=== PATIENT | male | born 1965 | race Caucasian/White ===

== ENCOUNTER 2019-09-30 19:55 | Emergency (ER) | payer BC, SELFPAY ==
--- NOTE | ~2019-09-30 | CT_ITS ---
EXAMINATION: CT abdomen pelvis wo con DATE: 09/30/2019 20:48 INDICATION: Lower abdominal pain and hematuria TECHNIQUE: Computed tomography (CT) of the abdomen and pelvis was performed without intravenous contr ast. The dose-length product (DLP) was 683.08 mGy-cm. Automated exposure control and iterative recons truction technique were employed. COMPARISON: 10/24/2017 FINDINGS: The lung bases are clear. The heart size is normal. The liver, spleen, pancreas, gallbladde r, and adrenal glands are normal. The kidneys are unremarkable. No stones are identified in the kidne ys, ureters, or bladder. There is no hydronephrosis or hydroureter. No pathologically enlarged abdomi nal or pelvic lymph nodes are identified. There is no free intraperitoneal gas or evidence of bowel o bstruction. The appendix is normal. There is mild lumbar spondylosis. There is a small fat-containing umbilical hernia. There is mild circumferential thickening of the bladder wall. IMPRESSION: 1. Mild circumferential thickening of the bladder wall which could reflect cystitis or chronic outlet obstruction. Reviewed, dictated and finalized at location A. IMPRESSION: 1. Mild circumferential thickening of the bladder wall which could reflect cyst itis or chronic outlet obstruction.
[2019-09-30 20:02] VITALS: BP 153/94; PULSE 85; RESP 18; TEMP 36.7; O2SAT 100
--- NOTE | 2019-09-30 20:07 | ED.MALEGU ---
HPI - Male Genitourinary General Chief complaint: Urogenital-Male Stated complaint: kidney/bladder infx Time Seen by Provider: 09/30/19 19:59 History of Present Illness HPI Narrative: Intermittent lower abdominal pain and increased urinary frequency for the past week. Getting worse. Urine appears cloudy. Had similar symptoms in the past due to UTI. Denies h/o BPH/retention. Related Data Home Medications Medication Instructions Recorded Confirmed doxycycline hyclate 150 mg tablet 150 mg PO DAILY tablet 07/09/19 07/09/19 Allergies Allergy/AdvReac Type Severity Reaction Status Date / Time atorvastatin Allergy Unknown Joint Pain Verified 09/30/19 19:57 Review of Systems Review of Systems: All systems reviewed & are unremarkable except as noted in HPI and below Constitutional: Constitutional: Denies fever(s) Cardiovascular: Cardiovascular: Denies chest pain Respiratory: Respiratory: Denies dyspnea Gastrointestinal: Gastrointestinal: Reports abdominal pain, Denies constipation, Denies diarrhea, Denies nausea and Denies vomiting Genitourinary: Genitourinary: Denies dysuria and Reports urinary frequency [facility] Past Medical History Medical History Cellulitis of head or scalp Chronic low back pain with right-sided sciatica Hx of malignant neoplasm of colon Hyperlipidemia LBBB (left bundle branch block) SYL (obstructive sleep apnea) Pulmonary nodules Surgical History Surgical History No pertinent past surgical history Family History Family History Grandparent Diabetes mellitus Other Diabetes mellitus Social History Social History Smoking status: Former smoker Second hand tobacco smoke exposure: No Smoking end date: 03/09/04 Alcohol intake: former Substance use: never Substance use type: does not use Gender identity (if verbalized by the patient): Male Exam Const: General: healthy appearing, no acute distress and alert Orientation/consciousness: patient oriented x3 HENMT: Head: normal to inspection Neck: Neck: normal visual inspection and no lymphadenopathy Chest: Chest palpation & inspection: no tenderness Resp: Effort & Inspection: normal respiratory effort Auscultation: clear to auscultation bilaterally, no rales, no rhonchi and no wheezes Cardio: Jugular venous distension: no JVD Rate: regular rate Rhythm: regular rhythm Heart sounds: no murmurs GI: Inspection: non-distended GI Palp: Yes Soft to palpation and No Tenderness to palpation present (GI) : General: Yes Bladder palpation abnormal tender Skin: General skin exam: normal color Neuro: General: patient oriented x3 and moves all extremities Speech: normal speech Extrem: General: no edema Psych: Appearance: well kempt Affect: normal affect Course Vital Signs Vital signs: Vital Signs Temperature 36.7 C 09/30/19 20:02 Pulse Rate 85 09/30/19 20:02 Respiratory Rate 18 09/30/19 20:02 Blood Pressure 153/94 H 09/30/19 20:02 Pulse Oximetry 100 09/30/19 20:02 Temperature 36.7 C 09/30/19 21:21 Pulse Rate 82 09/30/19 21:21 Respiratory Rate 16 09/30/19 21:21 Blood Pressure 155/94 H 09/30/19 21:21 Pulse Oximetry 98 09/30/19 21:21 MDM - Male Genitourinary MDM Narrative Medical decision making narrative: UA shows a few red cells with no obvious sign of infection. CT shows thickened bladder wall. I will send urine for culture. No antibiotics at this time. Start flomax and have him follow-up with urology. Medical Records Attestation: I reviewed the patient's medical records. Lab Data Attestation: I reviewed the patient's lab results. Result diagrams: 09/30/19 20:31 09/30/19 20:31 Labs: Lab Results 09/30/19 09/30/19
[2019-09-30 20:15] LABS: Add Urine Microscopic? YES; Appearance Urine Clear (Clear); Bilirubin Urine Negative (Negative); Blood Urine 1+ (Negative); Color Urine Yellow (Yellow); Glucose Urine UA Negative (Negative); Ketones Urine Negative (Negative); Leukocyte Esterase Ur Negative LEU/UL (Negative); Mucus Urine Rare /lpf; Nitrate Urine Negative (Negative); Protein Urine Negative (Negative); Specific Grav Ur 1.015 (1.001-1.035); Urobilinogen Urine Negative mg/dL (<2.0); WBC Urine 0-3 /hpf
[2019-09-30 20:45] LABS: Basophils Percent Auto 0.5 % (0.2-1.2); Eosinophils Absolute Auto 0.1 K/mm3 (0-0.3); Eosinophils Percent Auto 1.1 % (0-4.4); Hematocrit 47.3 % (42.0-52.0); Hemoglobin 15.9 g/dL (14.0-18.0); Immature Granulocyte Absolute 0.01 K/mm3 (0.00-0.031); Immature Granulocyte Percent A 0.2 % (0-0.5); Lymphocytes Absolute Auto 1.67 K/mm3 (0.9-3.2); Lymphocytes Percent Auto 30.2 % (18.3-44.2); Mean Corpuscular HGB Conc 33.6 g/dl (32-36); Mean Corpuscular Hemoglobin 30.1 pg (26-34); Mean Corpuscular Volume 89.4 fl (80-100); Mean Platelet Volume 9.7 fl (7.4-10.4); Monocytes Absolute Auto 0.7 K/mm3 (0.1-0.6); Monocytes Percent Auto 12.8 % (2.6-8.5); Neutrophils Absolute Auto 3.1 K/mm3 (1.3-6.7); Neutrophils Percent Auto 55.2 % (45.5-73.1); Platelet Count Result 226 k/mm3 (150-375); Red Blood Count 5.29 M/mm3 (4.6-6.20); White Blood Count 5.5 K/mm3 (4.5-10.0)
[2019-09-30 21:01] LABS: Alanine Aminotransferase 26 U/L (4-50); Albumin Level 4.5 g/dL (3.5-5.1); Alkaline Phosphatase 60 U/L (38-126); Anion Gap 11.1 mmol/L (7-16); Aspartate Amino Transferase 27 U/L (17-59); Bilirubin,Total 0.6 mg/dL (0.2-1.3); Blood Urea Nitrogen 13 mg/dL (9-20); Calcium 9.4 mg/dL (8.4-10.2); Carbon Dioxide 30 mmol/L (22-30); Chloride 102 mmol/L (98-107); Estimated Glomerular Filt Rate > 60; Glucose 97 mg/dL (75-110); Potassium 4.1 mmol/L (3.4-5.0); Sodium 139 mmol/L (137-145)
[2019-09-30] MEDS: TAMSULOSIN HCL 0.4 MG CAPSULE PO (21:12)
[2019-09-30 21:21] VITALS: BP 155/94; PULSE 82; RESP 16; TEMP 36.7; O2SAT 98
== END 2019-09-30 21:22 | disposition home or self-care (01) ==
PROVIDERS: Emergency Provider Emergency Medicine; PCP Family Medicine
DX: N32.0 Bladder-neck obstruction (principal); Z87.891 Personal history of nicotine dependence; Z85.038 Personal history of other malignant neoplasm of large intestine; E78.5 Hyperlipidemia, unspecified; G47.30 Sleep apnea, unspecified
CPT/HCPCS: 36415; 74176; 80053; 81001; 85025; 87086; 99284; A9270

== ENCOUNTER 2020-01-26 02:55 | Emergency (ER) | payer BC, SELFPAY ==
[2020-01-26] VITALS (10 sets, daily range): BP systolic 118–157; BP diastolic 82–92; PULSE 63–97; RESP 5–22; TEMP 36.2; O2SAT 98–100
--- NOTE | ~2020-01-26 | XR_ITS ---
EXAMINATION: XR chest 2V DATE: 01/26/2020 04:00 INDICATION: Left neck pain. Nausea. TECHNIQUE: Frontal and lateral views of the chest were obtained. COMPARISON: Chest 2 views 07/21/2016, CT abdomen and pelvis 09/30/2019 FINDINGS: There is mild scarring at right lung apex. There are mild airspace opacities at the lung ba ses. No pleural effusion or pneumothorax. The heart size is normal. IMPRESSION: 1. Mild airspace opacities at the lung bases, consistent with atelectasis versus pneumonia. Reviewed, dictated and finalized at location A. [employer] IMPRESSION: 1. Mild airspace opacities at the lung bases, consistent with atelectasis versu s pneumonia.
--- NOTE | 2020-01-26 03:01 | ED.NECK ---
HPI - Neck Pain/Injury General Chief Complaint: Neck Pain/Injury Stated Complaint: neck pain Time Seen by Provider: 01/26/20 03:01 Source: patient Mode of arrival: ambulatory Limitations: no limitations History of Present Illness HPI Narrative: Patient is a 54-year-old gentleman with a history of hypertension who presents for evaluation of left-sided neck pain. Patient states he awakened from sleeping with a sharp neck pain on the left side of his neck. Patient has a longstanding history of chronic neck and back pain due to injuries in the past, states that this pain is worse with movement. He had some associated nausea after taking an aspirin, was concerned maybe he was having a heart attack, thus he came to the emergency department for assessment. Patient denies any current chest pain or shortness of breath. No current nausea or diaphoresis. He denies any palpitations. Patient denies history of previous MT. He denies any ripping or tearing sensation to the back or flanks. No associated jaw pain or arm pain. Patient states he did experience some tingling in both of his hands, but states he is feeling quite anxious and does attribute some of his symptoms to anxiety as well. Patient denies any current numbness or weakness. No difficulty with speech, no facial droop or drooling. Patient was able to drive to this facility and then ambulated in the emergency department without difficulty. No dizziness or lightheadedness. No vision changes. He denies recent illnesses, fever, cough or cold symptoms. Patient states he is COVID swabbed weekly. Related Data Home Medications Medication Instructions Recorded Confirmed doxycycline hyclate 150 mg tablet 150 mg PO DAILY tablet 07/09/19 07/09/19 Allergies Allergy/AdvReac Type Severity Reaction Status Date / Time atorvastatin Allergy Unknown Joint Pain Verified 09/30/19 19:57 Review of Systems Review of Systems: Narrative: CONSTITUTIONAL: Denies fever, chills, or sweats. EYES: Denies visual changes, redness, or discharge. ENT: Denies rhinorrhea, congestion, sore throat, or otalgia. CARDIOVASCULAR: Denies chest pain, palpitations, or edema. RESPIRATORY: Denies cough or dyspnea. GASTROINTESTINAL: Denies current abdominal pain, nausea, vomiting, or diarrhea. GENITOURINARY: Denies dysuria or hematuria. SKIN: Denies rash or itching. MUSCULOSKELETAL: Denies back pain, reports left-sided neck pain with movement NEUROLOGIC: Denies headache, numbness, or weakness. PSYCHIATRIC: Patient reports anxiety PMFSH Past Medical History Medical History (Updated 01/26/20 @ 06:55 by Priya Santiago MD) Cellulitis of head or scalp Chronic low back pain with right-sided sciatica Hx of malignant neoplasm of colon Hyperlipidemia LBBB (left bundle branch block) SYL (obstructive sleep apnea) Pulmonary nodules Surgical History Surgical History No pertinent past surgical history Family History Family History Grandparent Diabetes mellitus Other Diabetes mellitus Social History Social History Smoking status: Former smoker Second hand tobacco smoke exposure: No Smoking end date: 03/09/04 Alcohol intake: former Substance use: never Substance use type: does not use Gender identity (if verbalized by the patient): Male Exam Narrative: Exam Narrative: GENERAL: Awake, alert, conversant HEAD: Normocephalic, atraumatic. EYES: PERRLA and EOMI. ENT: Nares clear, no rhinorrhea or epistaxis. Mucous membranes moist. NECK: Supple. Tenderness to palpation of the left trapezius which reproduces pain. No midline cervical tenderness. CHEST: No respiratory distress, breathing even and non labored HEART: Regular rate, sinus rhythm, no murmur ABDOMEN:Non distended, non tender EXTREMITIES: Normal range of motion. No edema. SKIN: Warm,
--- NOTE | 2020-01-26 03:33 | ECG_ITS ---
Measurements Intervals [place] Rate: 60 P: 46 OR: 190 QRS: 4 QRSD: 101 T: 13 QT: 379 QTc: 382 Interpretive Statements SINUS RHYTHM BASELINE WANDER- V1 NORMAL ECG Electronically Signed On 01-26-2020 7:33:47 RECOOPERER by Reji Wooten D.O.
[2020-01-26] MEDS: ACETAMINOPHEN 500 MG TABLET 1000 MG PO (03:53)
[2020-01-26] MEDS: SODIUM CHLORIDE 0.9% IV 500 ML 999 ML IV CONT (03:54)
--- NOTE | 2020-01-26 03:54 | PC.NURSE ---
Pt. to XR
[2020-01-26] MEDS: LORazepam (*CRX) 0.5 MG TABLET PO (03:59)
[2020-01-26 04:11] LABS: Basophils Percent Auto 0.6 % (0.2-1.2); Eosinophils Absolute Auto 0.1 K/mm3 (0-0.3); Hematocrit 44.3 % (42.0-52.0); Hemoglobin 14.9 g/dL (14.0-18.0); Immature Granulocyte Absolute 0.02 K/mm3 (0.00-0.031); Immature Granulocyte Percent A 0.3 % (0-0.5); Lymphocytes Absolute Auto 1.86 K/mm3 (0.9-3.2); Mean Corpuscular HGB Conc 33.6 g/dl (32-36); Mean Corpuscular Hemoglobin 30.3 pg (26-34); Mean Platelet Volume 9.7 fl (7.4-10.4); Monocytes Absolute Auto 0.7 K/mm3 (0.1-0.6); Monocytes Percent Auto 10.4 % (2.6-8.5); Neutrophils Absolute Auto 3.9 K/mm3 (1.3-6.7); Neutrophils Percent Auto 58.7 % (45.5-73.1); Platelet Count Result 226 k/mm3 (150-375); Red Blood Count 4.92 M/mm3 (4.6-6.20); Red Cell Distribution Width 12.1 % (11.5-14.5); White Blood Count 6.7 K/mm3 (4.5-10.0)
[2020-01-26 04:28] LABS: Anion Gap 8 mmol/L (8-16); Blood Urea Nitrogen 19 mg/dL (9-20); Carbon Dioxide 29 mmol/L (22-30); Chloride 103 mmol/L (98-107); Estimated CRCL calculation 106 ml/min; Estimated Glomerular Filt Rate > 60; Glucose 93 mg/dL (75-110); Potassium 3.8 mmol/L (3.4-5.0); Sodium 140 mmol/L (137-145)
[2020-01-26 04:35] LABS: Partial Thromboplastin Time 28.6 SECONDS (22.3-36.8)
[2020-01-26 04:40] LABS: Troponin I < 0.012 ng/mL (0.000-0.034)
[2020-01-26 04:50] LABS: INR 0.9; Prothrombin Time 12.4 Seconds (11.1-14.7)
[2020-01-26 06:53] LABS: Troponin I < 0.012 ng/mL (0.000-0.034)
== END 2020-01-26 07:12 | disposition home or self-care (01) ==
PROVIDERS: Emergency Provider Emergency Medicine; PCP Internal Medicine Cardiovascular Disease
DX: M54.2 Cervicalgia (principal); M25.512 Pain in left shoulder; E78.5 Hyperlipidemia, unspecified; G47.33 Obstructive sleep apnea (adult) (pediatric); Z87.891 Personal history of nicotine dependence
CPT/HCPCS: 36415; 71046; 80048; 84484; 85025; 85610; 85730; 93005; 96360; 99284; A9270; J7040

== ENCOUNTER 2020-05-16 12:29 | Emergency (ER) | payer BC, SELFPAY ==
--- NOTE | ~2020-05-16 | XR_ITS ---
EXAMINATION: XR_CERV2-3V_CR EXAM DATE: 05/16/2020 13:24 INDICATION: Initial encounter following injury, with pain of the cervical spine. TECHNIQUE: Cervical spine frontal, lateral, lateral swimmers, and open-mouth odontoid projections. C omparison is made to prior examination from 02/08/2016. FINDINGS: There is no evidence of acute cervical fracture. The odontoid process is intact. Pre-dens space is normal. Prevertebral soft tissue is normal. There are no soft tissue abnormalities identi fied. Moderate disc disease L3-4 and L4-5, mild to moderate arthropathy at these levels. The vertebr al body and disc heights are otherwise well maintained. The vertebral bodies are aligned. IMPRESSION: 1. Moderate disc disease C3-5. 2. No acute findings. Reviewed, dictated and finalized at location B. RUMENTATION TECH
--- NOTE | ~2020-05-16 | XR_ITS ---
EXAMINATION: XR lumbar spine 2-3V DATE: 05/16/2020 13:24 INDICATION: Low back pain. TECHNIQUE: 3 views of lumbar spine were obtained. COMPARISON: CT abdomen and pelvis 09/30/2019 FINDINGS: There is 5 degrees dextrocurvature of thoracolumbar spine. Vertebral body heights are danitza l. Intervertebral disc heights are normal. There are endplate osteophytes at most levels. The facet j oints are unremarkable. IMPRESSION: 1. Mild lumbar spondylosis. Reviewed, dictated and finalized at location A. [employer]ET[employer]ATOR IMPRESSION: 1. Mild lumbar spondylosis.
[2020-05-16 12:42] VITALS: BP 111/87; PULSE 100; RESP 20; TEMP 36.8; O2SAT 100
--- NOTE | 2020-05-16 12:52 | ED.BACK ---
HPI - Back Pain/Injury General Chief Complaint: Back Pain/Injury Stated Complaint: back and neck pain, arm face numbness Time Seen by Provider: 05/16/20 12:51 Source: patient Mode of arrival: ambulatory Limitations: no limitations History of Present Illness HPI Narrative: Patient is a 55-year-old male complaining of low back pain, neck pain, 8 out of 10, aching, radiating to the lower extremity started after hitting a pothole on his way to his pcp. Pt states that he saw his chiropractor this past week due to the low back pain in which he was adjusted. Patient states that he has a history of chronic low back pain, has been seeing a chiropractor and his primary care physician for it. Patient denies any incontinence, weakness, numbness, fever or chills. Related Data Home Medications Medication Instructions Recorded Confirmed doxycycline hyclate 150 mg tablet 150 mg PO DAILY tablet 07/09/19 05/16/20 Allergies Allergy/AdvReac Type Severity Reaction Status Date / Time atorvastatin Allergy Unknown Joint Pain Verified 05/16/20 11:23 Review of Systems Review of Systems: All systems reviewed & are unremarkable except as noted in HPI and below Constitutional: Constitutional: Denies body ache(s), Denies chills, Denies excessive sweating, Denies fatigue, Denies fever(s), Denies headache(s), Denies lethargy, Denies malaise, Denies weakness and Denies weight loss Eyes: Eyes: Denies blurry vision, Denies change in vision and Denies loss of vision ENT: Denies dizziness, Denies ear discharge, Denies headache(s), Denies lip swelling, Denies epistaxis, Denies nasal congestion, Denies neck pain, Denies throat swelling and Denies tongue swelling Cardiovascular: Cardiovascular: Denies chest pain, Denies chest pain at rest, Denies chest pain with activity, Denies diaphoresis, Denies rapid heart rate, Denies edema, Denies irregular heart rhythm, Denies lightheadedness, Denies palpitations, Denies dyspnea and Denies dyspnea on exertion Respiratory: Respiratory: Denies chest congestion, Denies cough, Denies hemoptysis, Denies dyspnea and Denies dyspnea on exertion Gastrointestinal: Gastrointestinal: Denies abdominal pain, Denies melena, Denies hematochezia, Denies diarrhea, Denies nausea, Denies vomiting and Denies hematemesis Musculoskeletal: Musculoskeletal: Denies abnormal gait, Denies deformity, Denies joint swelling, Denies neck pain and Denies numbness Neurologic: Denies Abnormal speech present, Denies abnormal gait, Denies confusion, Denies dizziness, Denies headache(s), Denies focal weakness, Denies loss of vision, Denies numbness, Denies Other visual disturbances, Denies Sensory deficit (Neuro) and Denies weakness Psychiatric: Psychiatric: Denies confusion, Denies depression, Denies auditory hallucinations, Denies homicidal ideation and Denies suicidal ideation Endocrine: Endocrine: Denies cold intolerance, Denies excessive sweating, Denies fatigue, Denies heat intolerance and Denies palpitations Hematologic/Lymphatic: Hematologic/Lymphatic: Denies easy bleeding and Denies easy bruising Allergic/Immunologic: Allergic/Immunologic: Denies lip swelling, Denies throat swelling and Denies tongue swelling PMFSH Past Medical History Medical History (Updated 05/16/20 @ 14:01 by Sammy Barnes MD) Cellulitis of head or scalp Chronic low back pain with right-sided sciatica Hx of malignant neoplasm of colon Hyperlipidemia LBBB (left bundle branch block) SYL (obstructive sleep apnea) Pulmonary nodules Surgical History Surgical History No pertinent past surgical history Family History Family History Grandparent Diabetes mellitus Other Diabetes mellitus Social History Social History Smoking status: Former smoker Second hand tobacco smoke exposure: No Smoking end date
[2020-05-16] MEDS: KETOROLAC 30 MG/ML VIAL (*BKC) IM (14:16)
[2020-05-16] MEDS: diazePAM INJ (*CRX) 10 MG/2 ML SYRINGE 5 MG IM (14:16)
[2020-05-16 14:21] VITALS: BP 120/84; PULSE 87; RESP 22; O2SAT 100
== END 2020-05-16 14:51 | disposition home or self-care (01) ==
LOC: ANHED 13:23
PROVIDERS: Emergency Provider Emergency Medicine; PCP Family Medicine
DX: S16.1XXA Strain of muscle, fascia and tendon at neck level, initial encounter (principal); M54.41 Lumbago with sciatica, right side; Z85.038 Personal history of other malignant neoplasm of large intestine; E78.5 Hyperlipidemia, unspecified; G47.33 Obstructive sleep apnea (adult) (pediatric); Z87.891 Personal history of nicotine dependence; X58.XXXA Exposure to other specified factors, initial encounter
CPT/HCPCS: 72040; 72100; 96372; 99284; J1100; J1885; J3360

== ENCOUNTER 2020-07-08 07:30 | Outpatient (CLI) | payer BC, SELFPAY ==
--- NOTE | ~2020-07-08 | MR_ITS ---
EXAMINATION: MR cervical spine wo con DATE: 07/08/2020 09:23 INDICATION: Neck pain. TECHNIQUE: Magnetic resonance imaging (MRI) of the cervical spine was performed without intravenous c ontrast. Sequences included sagittal T2-weighted FSE, sagittal STIR FSE, sagittal T1-weighted FSE, ax ial MERGE, and axial T2-weighted FSE. COMPARISON: Cervical spine radiographs 05/16/2020 FINDINGS: There is 7 degrees dextrocurvature of cervical spine. Vertebral body heights are normal. Th ere is moderately decreased disc height at C3-C4 and C4-C5 and mildly decreased disc height at C6-C7. The spinal cord signal intensity is normal. The following disc levels are specifically discussed: C2-C3: The disc does not extend beyond the endplate margin. There is no uncovertebral joint osteoarth ritis. There is mild bilateral facet joint osteoarthritis. There is no neural foraminal stenosis. The re is no central canal stenosis. C3-C4: The disc is bulging. There is moderate right and severe left uncovertebral joint osteoarthriti s. There is mild bilateral facet joint osteoarthritis. There is mild bilateral neural foraminal steno sis. There is mild central canal stenosis. C4-C5: The disc is bulging. There is moderate bilateral uncovertebral joint osteoarthritis. There is mild left facet joint osteoarthritis. There is mild bilateral neural foraminal stenosis. There is no central canal stenosis. C5-C6: The disc does not extend beyond the endplate margin. There is mild left uncovertebral joint os teoarthritis. There is no facet joint osteoarthritis. There is no neural foraminal stenosis. There is no central canal stenosis. C6-C7: The disc is bulging. There is mild right and severe left uncovertebral joint osteoarthritis. T here is no facet joint osteoarthritis. There is mild right and moderate left neural foraminal stenosi s. There is mild central canal stenosis. C7-T1: The disc does not extend beyond the endplate margin. There is no uncovertebral joint osteoarth ritis. There is mild bilateral facet joint osteoarthritis. There is no neural foraminal stenosis. The re is no central canal stenosis. IMPRESSION: 1. Moderate cervical spondylosis. Reviewed, dictated and finalized at location A.
--- NOTE | ~2020-07-08 | MR_ITS ---
EXAMINATION: MR lumbar spine wo con DATE: 07/08/2020 09:23 INDICATION: Lumbago with right-sided sciatica. TECHNIQUE: Magnetic resonance imaging (MRI) of the lumbar spine was performed without intravenous con trast. Sequences included sagittal T2-weighted FSE, sagittal T2-weighted FS FSE, sagittal T1-weighted FSE, and axial T2-weighted FSE. COMPARISON: Lumbar spine radiographs 05/16/2020 FINDINGS: Bone alignment is normal. Vertebral body heights and intervertebral disc heights are normal . The distal spinal cord signal intensity is normal. The conus medullaris is at L1. The following dis c levels are specifically discussed: L1-L2: There is a left central protrusion with annular fissure. There is no facet joint osteoarthriti s. There is no neural foraminal stenosis. There is mild central canal stenosis. L2-L3: The disc does not extend beyond the endplate margin. There is no facet joint osteoarthritis. T here is no neural foraminal stenosis. There is no central canal stenosis. L3-L4: The disc is mildly bulging. There is mild bilateral facet joint osteoarthritis. There is mild bilateral neural foraminal stenosis. There is no central canal stenosis. L4-L5: The disc is bulging and has an annular fissure. There is mild bilateral facet joint osteoarthr itis. There is mild bilateral neural foraminal stenosis. There is mild central canal stenosis. L5-S1: The disc is bulging and has an annular fissure. There is mild right facet joint osteoarthritis . There is mild bilateral neural foraminal stenosis. There is mild central canal stenosis. IMPRESSION: 1. Mild lumbar spondylosis. Reviewed, dictated and finalized at location A. IMPRESSION: 1. Mild lumbar spondylosis.
== END 2020-07-08 07:31 | disposition home or self-care (01) ==
PROVIDERS: PCP Family Medicine; Visit Provider Family Medicine
DX: M54.41 Lumbago with sciatica, right side (principal); G89.29 Other chronic pain; M43.06 Spondylolysis, lumbar region; M50.90 Cervical disc disorder, unspecified, unspecified cervical region; M47.896 Other spondylosis, lumbar region; M47.892 Other spondylosis, cervical region
CPT/HCPCS: 72141; 72148

== ENCOUNTER 2020-07-27 01:15 | Emergency (ER) | payer BC, SELFPAY ==
[2020-07-27 01:18] VITALS: BP 154/92; PULSE 110; RESP 18; TEMP 36.9; O2SAT 100
--- NOTE | 2020-07-27 01:36 | ED.GENADULT ---
HPI - General Adult General Chief complaint: Unspecified Stated complaint: Chills/shakes-lower back pain Time Seen by Provider: 07/27/20 01:27 Source: patient Mode of arrival: ambulatory Limitations: no limitations History of Present Illness HPI narrative: Patient is a 55-year-old male complaining of low back pain accompanied by chills and nausea that started tonight. Patient has a history of chronic low back pain, had an MRI of the lumbar spine done last month at this facility. Patient states that he has had similar episodes in the past when he was diagnosed with a bladder infection . Patient denies any chest pain, shortness of breath, abdominal pain, vomiting,, diarrhea or urinary symptoms. Patient denies any injury to his lower back. Patient has no other complaints. Related Data Home Medications Medication Instructions Recorded Confirmed doxycycline hyclate 150 mg tablet 150 mg PO DAILY tablet 07/09/19 06/09/20 docosahexaenoic acid 200 mg capsule mg PO 06/09/20 06/09/20 Allergies Allergy/AdvReac Type Severity Reaction Status Date / Time atorvastatin Allergy Unknown Joint Pain Verified 07/27/20 01:17 Review of Systems Review of Systems: All systems reviewed & are unremarkable except as noted in HPI and below Constitutional: Constitutional: Denies body ache(s), Denies excessive sweating, Denies fatigue, Denies fever(s), Denies headache(s), Denies lethargy, Denies malaise, Denies weakness and Denies weight loss Eyes: Eyes: Denies blurry vision, Denies change in vision and Denies loss of vision ENT: Denies dizziness, Denies ear discharge, Denies headache(s), Denies lip swelling, Denies epistaxis, Denies nasal congestion, Denies neck pain, Denies throat swelling and Denies tongue swelling Cardiovascular: Cardiovascular: Denies chest pain, Denies chest pain at rest, Denies chest pain with activity, Denies diaphoresis, Denies rapid heart rate, Denies edema, Denies irregular heart rhythm, Denies lightheadedness, Denies palpitations, Denies dyspnea and Denies dyspnea on exertion Respiratory: Respiratory: Denies chest congestion, Denies cough, Denies hemoptysis, Denies dyspnea and Denies dyspnea on exertion Gastrointestinal: Gastrointestinal: Denies abdominal pain, Denies melena, Denies hematochezia, Denies diarrhea, Denies vomiting and Denies hematemesis Musculoskeletal: Musculoskeletal: Denies abnormal gait, Denies deformity, Denies joint swelling, Denies limited range of motion, Denies neck pain and Denies numbness Neurologic: Denies Abnormal speech present, Denies abnormal gait, Denies confusion, Denies dizziness, Denies headache(s), Denies focal weakness, Denies loss of vision, Denies numbness, Denies Other visual disturbances, Denies Sensory deficit (Neuro) and Denies weakness Psychiatric: Psychiatric: Denies confusion, Denies depression, Denies auditory hallucinations, Denies homicidal ideation and Denies suicidal ideation Endocrine: Endocrine: Denies cold intolerance, Denies excessive sweating, Denies fatigue, Denies heat intolerance and Denies palpitations Hematologic/Lymphatic: Hematologic/Lymphatic: Denies easy bleeding and Denies easy bruising Allergic/Immunologic: Allergic/Immunologic: Denies lip swelling, Denies throat swelling and Denies tongue swelling PMFSH Past Medical History Medical History Cellulitis of head or scalp Chronic low back pain with right-sided sciatica Chronic neck pain Hx of malignant neoplasm of colon Hyperlipidemia LBBB (left bundle branch block) SYL (obstructive sleep apnea) Pulmonary nodules Surgical History Surgical History No pertinent past surgical history Family History Family History Grandparent Diabetes mellitus Other Diabetes mellitus Social History Social History (Reviewed 07/27/20 @ 01:42 by Sammy Brown
[2020-07-27] MEDS: SODIUM CHLORIDE 0.9% IV 1,000 ML 999 ML IV CONT (01:47)
[2020-07-27 01:55] LABS: Basophils Percent Auto 0.5 % (0.2-1.2); Eosinophils Percent Auto 0.6 % (0-4.4); Hemoglobin 14.8 g/dL (14.0-18.0); Immature Granulocyte Absolute 0.02 K/mm3 (0.00-0.031); Immature Granulocyte Percent A 0.3 % (0-0.5); Lymphocytes Absolute Auto 0.68 K/mm3 (0.9-3.2); Lymphocytes Percent Auto 10.2 % (18.3-44.2); Mean Corpuscular HGB Conc 34.4 g/dl (32-36); Mean Corpuscular Volume 87.2 fl (80-100); Mean Platelet Volume 9.4 fl (7.4-10.4); Monocytes Absolute Auto 0.5 K/mm3 (0.1-0.6); Monocytes Percent Auto 8.1 % (2.6-8.5); Neutrophils Absolute Auto 5.3 K/mm3 (1.3-6.7); Neutrophils Percent Auto 80.3 % (45.5-73.1); Platelet Count Result 183 k/mm3 (150-375); Red Blood Count 4.93 M/mm3 (4.6-6.20); Red Cell Distribution Width 11.6 % (11.5-14.5); White Blood Count 6.6 K/mm3 (4.5-10.0)
[2020-07-27 02:14] LABS: Add Urine Microscopic? NO; Appearance Urine Clear (Clear); Bilirubin Urine Negative (Negative); Blood Urine Negative (Negative); Color Urine Straw (Yellow); Glucose Urine UA Negative (Negative); Ketones Urine Negative (Negative); Leukocyte Esterase Ur Negative LEU/UL (Negative); Mucus Urine Rare /lpf; Nitrate Urine Negative (Negative); Protein Urine Negative (Negative); RBC Urine 0-2 /hpf (0-2); Urobilinogen Urine Negative mg/dL (<2.0); WBC Urine 0-3 /hpf
[2020-07-27 02:21] LABS: Anion Gap 4 mmol/L (8-16); Blood Urea Nitrogen 16 mg/dL (9-20); Calcium 9.6 mg/dL (8.4-10.2); Carbon Dioxide 30 mmol/L (22-30); Chloride 103 mmol/L (98-107); Estimated CRCL calculation 92 ml/min; Estimated Glomerular Filt Rate > 60; Glucose 86 mg/dL (75-110); Potassium 4.2 mmol/L (3.4-5.0); Sodium 137 mmol/L (137-145)
[2020-07-27 03:12] VITALS: BP 148/103; PULSE 91; RESP 16; TEMP 36.4; O2SAT 100
== END 2020-07-27 03:13 | disposition home or self-care (01) ==
PROVIDERS: Emergency Provider Emergency Medicine; PCP Family Medicine
DX: M54.5 Low back pain (principal); R68.83 Chills (without fever); Z87.891 Personal history of nicotine dependence; E78.5 Hyperlipidemia, unspecified; G47.33 Obstructive sleep apnea (adult) (pediatric)
CPT/HCPCS: 36415; 80048; 81003; 85025; 96360; 99283; J7030

== ENCOUNTER 2021-07-17 11:03 | Emergency (ER) | payer BC, SELFPAY ==
[2021-07-17] VITALS (7 sets, daily range): BP systolic 115–137; BP diastolic 75–97; PULSE 64–93; RESP 17–21; TEMP 36.8; O2SAT 98–100
--- NOTE | ~2021-07-17 | CT_ITS ---
EXAMINATION: CT brain wo con DATE: 07/17/2021 13:52 INDICATION: Headache. Dizziness. TECHNIQUE: Computed tomography (CT) of the head was performed without intravenous contrast. Sagittal and coronal reconstructions were performed. The mA was adjusted according to patient size. Iterative reconstruction technique was employed. The dose-length product was 605.33 mGy-cm. COMPARISON: head CT dated 07/21/16 FINDINGS: No acute intracranial hemorrhage, acute infarction or abnormal extra axial fluid collection. There is mild scattered white matter hypoattenuation consistent with chronic small vessel ischemic disease. Ventricles are normal and symmetric. No mass/mass effect. Mild mucosal thickening the left ethmoid si nus. The orbits and mastoid air cells are normal. IMPRESSION: 1. No acute intracranial process. 2. Mild scattered white matter hypoattenuation consistent with chronic small vessel ischemic disease. Reviewed, dictated and finalized at location A. IMPRESSION: 1. No acute intracranial process. 2. Mild scattered white matter hypoattenuation consistent with chronic small ve ssel ischemic disease.
--- NOTE | ~2021-07-17 | XR_ITS ---
XR chest 2V DATE: 07/17/2021 12:05 INDICATION: Shortness of breath and dizziness after bending. Recent diagnosis of left bundle-branch b lock TECHNIQUE: 2 views COMPARISON: 01/26/2020 PA and lateral chest FINDINGS: Normal heart size. No hilar or mediastinal enlargement. No pulmonary infiltrate or consolid ation, pleural effusion or pulmonary vascular congestion or pneumothorax. IMPRESSION: No active cardiopulmonary disease Reviewed, dictated and finalized at location B.
--- NOTE | 2021-07-17 11:08 | ECG_ITS ---
Measurements Intervals [place] Rate: 98 P: 62 MN: 181 QRS: 7 QRSD: 128 T: 96 QT: 349 QTc: 446 Interpretive Statements SINUS RHYTHM LEFT BUNDLE BRANCH BLOCK ABNORMAL ECG Electronically Signed On 07-17-2021 11:24:03 CDT by Reji Wooten D.O.
[2021-07-17 11:27] LABS: Basophils Percent Auto 0.4 % (0.2-1.2); Eosinophils Percent Auto 0.5 % (0-4.4); Hematocrit 48.6 % (42.0-52.0); Hemoglobin 16.3 g/dL (14.0-18.0); Immature Granulocyte Absolute 0.02 K/mm3 (0.00-0.031); Immature Granulocyte Percent A 0.2 % (0-0.5); Lymphocytes Absolute Auto 1.68 K/mm3 (0.9-3.2); Lymphocytes Percent Auto 20.4 % (18.3-44.2); Mean Corpuscular HGB Conc 33.5 g/dl (32-36); Mean Corpuscular Hemoglobin 30.4 pg (26-34); Mean Corpuscular Volume 90.7 fl (80-100); Mean Platelet Volume 9.3 fl (7.4-10.4); Monocytes Absolute Auto 0.5 K/mm3 (0.1-0.6); Monocytes Percent Auto 6.4 % (2.6-8.5); Neutrophils Absolute Auto 5.9 K/mm3 (1.3-6.7); Neutrophils Percent Auto 72.1 % (45.5-73.1); Platelet Count Result 239 k/mm3 (150-375); Red Blood Count 5.36 M/mm3 (4.6-6.20); White Blood Count 8.2 K/mm3 (4.5-10.0)
[2021-07-17 11:40] LABS: Alanine Aminotransferase 40 U/L (6-50); Albumin Level 4.4 g/dL (3.5-5.1); Alkaline Phosphatase 56 U/L (38-126); Anion Gap 8 mmol/L (8-16); Aspartate Amino Transferase 31 U/L (17-59); Bilirubin,Total 0.7 mg/dL (0.2-1.3); Blood Urea Nitrogen 13 mg/dL (9-20); Calcium 9.4 mg/dL (8.4-10.2); Carbon Dioxide 25 mmol/L (22-30); Chloride 104 mmol/L (98-107); Estimated CRCL calculation 91 ml/min; Estimated Glomerular Filt Rate > 60; Glucose 117 mg/dL (65-110); Potassium 3.9 mmol/L (3.4-5.0); Sodium 137 mmol/L (137-145)
--- NOTE | 2021-07-17 13:04 | ED.SOB ---
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 Associated with shortness of breath lasted for few seconds. He denies any fever, chills, nausea, vomiting, diarrhea, constipation, trouble urinating. History of chronic intermittent frontal head, chronic intermittent neck pain and upper back pain for years secondary to trauma, he is a person. Patient was hospitalized at [facility] recently and got discharged 3 days ago. His is telling me that he underwent extensive cardiac work-up including a stress test, echo and also extensive work-up to rule out any stroke and result was negative and was discharged from the hospital at that time on no new medications. Was seen by Dr. Wooten 1 day later who put him on Holter monitor. Dr. Wooten told him at the time when he was bending over, the Holter monitor did not transmit any message to indicate that he had any arrhythmia at that time and he need to go to the emergency room. Currently patient complaining of frontal headache, upper back pain which is old, been through chiropractor over years for the same complaint secondary to trauma Related Data Home Medications Medication Instructions Recorded Confirmed docosahexaenoic acid 200 mg capsule mg PO 06/09/20 07/13/21 Allergies Allergy/AdvReac Type Severity Reaction Status Date / Time atorvastatin Allergy Unknown Joint Pain Verified 07/13/21 08:57 Review of Systems Review of Systems: All systems reviewed & are unremarkable except as noted in HPI and below [facility] Past Medical History Medical History Cellulitis of head or scalp Chronic low back pain with right-sided sciatica Chronic neck pain COVID-19 Hx of malignant neoplasm of colon Hyperlipidemia LBBB (left bundle branch block) SYL (obstructive sleep apnea) Pulmonary nodules Surgical History Surgical History No pertinent past surgical history Family History Family History Grandparent Diabetes mellitus Other Diabetes mellitus Social History Social History Smoking status: Never smoker Second hand tobacco smoke exposure: No Smoking end date: 03/09/04 Alcohol intake: former Substance use: never Substance use type: does not use Gender identity (if verbalized by the patient): Male Exam Narrative: General appearance: Well-developed, well-nourished Skin: Normal color Head: Normocephalic, nontraumatic Eyes: Clear conjunctiva ENT: Oropharynx normal, ears normal, nose normal Neck: Supple, nontender Chest and respiratory: Airway patent, no respiratory distress, no accessory muscle use Heart: Regular rate/rhythm Abdomen: Soft, nontender, no organomegaly, quiet bowel sounds Vascular: Normal peripheral pulses, normal capillary refill. Musculoskeletal: Normal range of motion, nontender back Neurologic: Alert and oriented ?3, ROLL ON MAN is normal as tested, no gross motor deficit Course Course Emergency Course: Patient presents with lightheadedness and dizziness while bending over to wipe his bottom after a bowel movement. Work-up did not show any significant findings to explain patient condition. Patient was told that he have paroxysmal A. f
[2021-07-17 14:11] LABS: Appearance Urine Clear (Clear); Bilirubin Urine Negative (Negative); Blood Urine Negative (Negative); Color Urine Yellow (Yellow); Glucose Urine UA Negative (Negative); Ketones Urine Negative (Negative); Leukocyte Esterase Ur Negative LEU/UL (Negative); Nitrate Urine Negative (Negative); Protein Urine Negative (Negative); Specific Grav Ur 1.025 (1.001-1.035); Urobilinogen Urine 0.2 mg/dL (<2.0); pH Urine 6.5 (5.0-9.0)
[2021-07-17] MEDS: ACETAMINOPHEN 325 MG TABLET 650 MG PO (14:15)
[2021-07-17 14:18] LABS: D Dimer 0.41 ug/mL (<0.48)
[2021-07-17 14:21] LABS: Add Urine Microscopic? NO
[2021-07-17 16:03] LABS: Creatine Kinase 61 U/L (55-170)
== END 2021-07-17 16:20 | disposition home or self-care (01) ==
PROVIDERS: Family Medicine; Emergency Provider Emergency Medicine; PCP Family Medicine
DX: R42 Dizziness and giddiness (principal); E78.5 Hyperlipidemia, unspecified; G47.33 Obstructive sleep apnea (adult) (pediatric); Z86.16 Personal history of COVID-19; Z85.038 Personal history of other malignant neoplasm of large intestine; I44.7 Left bundle-branch block, unspecified; R93.0 Abnormal findings on diagnostic imaging of skull and head, not elsewhere classified
CPT/HCPCS: 36415; 70450; 71046; 80053; 81003; 82550; 85025; 85380; 93005; 99284; A9270

== ENCOUNTER 2021-10-02 00:39 | Day surgery (SDC) | payer BC, SELFPAY ==
[2021-09-15 14:30] VITALS: BMI 31.4
--- NOTE | 2021-10-02 11:22 | WPDANESEPPF ---
Anes - Initial Pre Proc Eval Procedure: Operation Date: 10/02/21 13:00 Proposed Procedures p Screening Colonoscopy - Donovan Ceja MD Date/Time: 10/02/21 11:22 Surgeon: Donovan Ceja MD Pre Op Diagnosis: hx of colon ca Patient Data Age: 56 Gender: M Height: 1.83 m Weight: 105 kg Allergies Allergy/AdvReac Type Severity Reaction Status Date / Time atorvastatin Allergy Unknown Joint Pain Verified 10/02/21 11:54 Home Medications Medication Instructions Recorded Confirmed Type docosahexaenoic acid 200 mg 1 mg PO DAILY 06/09/20 09/15/21 History capsule (Algal [place]-3 DHA) aspirin 81 mg tablet,delayed 81 mg PO DAILY #90 tabs 08/29/20 09/15/21 Rx release (Enteric Coated Aspirin) doxycycline hyclate 80 mg 80 mg PO DAILY 08/01/21 09/15/21 History tablet,delayed release sodium sul 1.479 gram-potas ch See Rx Instructions PO PER PKG DIR 08/31/21 10/02/21 Rx 0.188 gram-magnes sul 0.225 gram #24 tabs tablet (Sutab) Patient hx anesthesia problems: none Family hx anesthesia problems: none Results Review: All pre-operative results and documents have been reviewed as part of the pre-operative evaluation. [facility] Past Medical History Medical History Cellulitis of head or scalp Chronic low back pain with right-sided sciatica Chronic neck pain COVID-19 Hx of malignant neoplasm of colon Hyperlipidemia LBBB (left bundle branch block) SYL (obstructive sleep apnea) Pulmonary nodules Surgical History Surgical History No pertinent past surgical history Family History Family History Grandparent Diabetes mellitus Other Diabetes mellitus Social History Social History Years smoked: 2 Smoking status: Former smoker Tobacco type: cigarettes Second hand tobacco smoke exposure: No Smoking end date: 03/09/04 Alcohol intake: never Substance use: never Substance use type: does not use Living arrangements: with family Gender identity (if verbalized by the patient): Male Spiritual care concerns: No Anes - Eval Final PreProcedure Day of Procedure 10/02/21 11:22 Patient weight: obese Heart: regular rate and rhythm Lungs: clear to auscultation and normal air movement Airway: Mallampati scale class II Neurological: alert and oriented Last oral intake: >/= 8 hours ASA classification: II Emergent: no Anesthetic plan: proceed Anesthesia type and monitoring: general GIVS Results Review: All pre-operative results and documents have been reviewed as part of the pre-operative evaluation. Informed Consent: The patient's anesthetic plan and its attendant risks and benefits were discussed with the patient/family/POA. Questions were solicited and answers provided to the satisfaction of the patient/family/POA.
[2021-10-02 11:55] VITALS: BP 110/89; PULSE 84; RESP 18; TEMP 36.4; O2SAT 100
[2021-10-02] MEDS: LACTATED RINGERS 1,000 ML 150 ML IV CONT (12:04)
--- NOTE | 2021-10-02 12:04 | WPDGICN ---
Assessment and Plan Assessment and plan (1) Hx of malignant neoplasm of colon: Code(s): Z85.038 - Personal history of other malignant neoplasm of large intestine Status: Chronic Assessment and Plan: Patient has a history of malignant colon polyp. Is been resected in felt cured. Plan is for surveillance colonoscopy now and consider this at 3 year intervals in the future. Further recommendations may be given after endoscopy. GI Consult Note Consult date/time: 10/02/21 12:04 Reason for consult: neoplasia screening. HPI: Manish Duckworth Jr. is a 56 year old male Presents for colonoscopy. Patient has a history of a colonoscopy performed by Dr. Donovan Silver in 2019. He has a history of a malignant polyp. When the polyp was removed a small focus of cancer was identified. No evidence of any extension . Patient subsequently had a tattoo placed at the site of this polyp. He presents today for surveillance colonoscopy. Patient reports that his current weight appetite and bowel movements are normal. He denies abdominal pain. Patient has had no bleeding. Family history is noncontributory. Review of Systems Review of Systems: Review of systems noncontributory. [facility] Past Medical History Medical History Cellulitis of head or scalp Chronic low back pain with right-sided sciatica Chronic neck pain COVID-19 Hx of malignant neoplasm of colon Hyperlipidemia LBBB (left bundle branch block) SYL (obstructive sleep apnea) Pulmonary nodules Surgical History Surgical History No pertinent past surgical history Family History Family History Grandparent Diabetes mellitus Other Diabetes mellitus Social History Social History Years smoked: 2 Smoking status: Former smoker Tobacco type: cigarettes Second hand tobacco smoke exposure: No Smoking end date: 03/09/04 Alcohol intake: never Substance use: never Substance use type: does not use Living arrangements: with family Gender identity (if verbalized by the patient): Male Spiritual care concerns: No Meds Home Medications and Allergies Home Medications Medication Instructions Recorded Confirmed Type docosahexaenoic acid 200 mg 1 mg PO DAILY 06/09/20 09/15/21 History capsule (Algal [place]-3 DHA) aspirin 81 mg tablet,delayed 81 mg PO DAILY #90 tabs 08/29/20 09/15/21 Rx release (Enteric Coated Aspirin) doxycycline hyclate 80 mg 80 mg PO DAILY 08/01/21 09/15/21 History tablet,delayed release sodium sul 1.479 gram-potas ch See Rx Instructions PO PER PKG DIR 08/31/21 10/02/21 Rx 0.188 gram-magnes sul 0.225 gram #24 tabs tablet (Sutab) Allergies Allergy/AdvReac Type Severity Reaction Status Date / Time atorvastatin Allergy Unknown Joint Pain Verified 10/02/21 11:54 Vital Signs Vital Signs - 24 hr 10/02/21 11:55 Temperature 97.6 F Pulse Rate 84 Respiratory Rate 18 Blood Pressure 110/89 Pulse Oximetry 100 Oxygen Delivery Room Air Exam Narrative: Physical exam reveals patient to be alert. Vital signs stable. HEENT exam is unremarkable. Patient is anicteric. Lungs are clear to auscultation and percussion. Heart is without murmur or extra sounds. Abdominal exam bowel sounds are present soft nontender with no organomegaly. Digital external rectal exam is normal.
[2021-10-02 12:50] VITALS: BP 96/68; PULSE 80; RESP 24; O2SAT 98
[2021-10-02 13:00] VITALS: BP 105/73; PULSE 74; RESP 25; O2SAT 100
[2021-10-02 13:10] VITALS: BP 123/86; PULSE 74; RESP 23; O2SAT 94
== END 2021-10-02 13:17 | disposition home or self-care (01) ==
PROVIDERS: PCP Family Medicine; Visit Provider Internal Medicine Gastroenterology
PROC: 0DJD8ZZ Inspection of Lower Intestinal Tract, Via Natural or Artificial Opening Endoscopic (ICD-10-PCS; CPT 45378; principal; 2021-10-02 13:00)
DX: Z12.11 Encounter for screening for malignant neoplasm of colon (principal); Z86.010 Personal history of colon polyps; K64.8 Other hemorrhoids; Z85.038 Personal history of other malignant neoplasm of large intestine; Z86.16 Personal history of COVID-19; E78.5 Hyperlipidemia, unspecified; G47.33 Obstructive sleep apnea (adult) (pediatric); R91.1 Solitary pulmonary nodule; I44.7 Left bundle-branch block, unspecified; Z87.891 Personal history of nicotine dependence; Z79.82 Long term (current) use of aspirin; E66.01 Morbid (severe) obesity due to excess calories; Z68.30 Body mass index [BMI] 30.0-30.9, adult
CPT/HCPCS: 45378; J2704; J7120

== ENCOUNTER 2022-08-06 09:01 | Emergency (ER) | payer OTHER, SELFPAY ==
--- NOTE | 2022-08-06 09:10 | ED.URI ---
HPI - URI/Sore Throat General Chief Complaint: Upper Respiratory Infection Stated Complaint: congestion Time Seen by Provider: 08/06/22 09:10 Source: patient Mode of arrival: ambulatory Limitations: no limitations History of Present Illness HPI Narrative: Manish is a 57-year-old male patient presenting to the clinic today with complaints of nasal congestion, runny nose, and productive cough bringing up some yellowish phlegm. He reports symptoms started approximately 1 week ago. Reports that he is blowing out clear nasal drainage but in the morning he is having some yellow phlegm. He denies being a smoker. He denies shortness of breath or chest pain. Denies any fever, chills, or sinus pressure currently. MD elicited complaint: cough, rhinorrhea and nasal congestion Related Data Allergies Allergy/AdvReac Type Severity Reaction Status Date / Time atorvastatin Allergy Unknown Joint Pain Verified 10/02/21 11:54 Review of Systems Review of Systems: Pertinent positives per HPI. Patient denies any fever, chills, rash, headache, visual changes, dizziness, shortness of breath, chest pain, palpitations, nausea, vomiting, diarrhea, constipation, abdominal pain, or any urinary issues. [facility] Past Medical History Medical History Cellulitis of head or scalp Chronic low back pain with right-sided sciatica Chronic neck pain COVID-19 Hx of malignant neoplasm of colon Hyperlipidemia LBBB (left bundle branch block) SYL (obstructive sleep apnea) Pulmonary nodules Surgical History Surgical History No pertinent past surgical history Family History Family History Grandparent Diabetes mellitus Other Diabetes mellitus Social History Social History Years smoked: 2 Smoking status: Former smoker Tobacco type: cigarettes Second hand tobacco smoke exposure: No Smoking end date: 03/09/04 Alcohol intake: never Substance use: never Substance use type: does not use Living arrangements: with family Gender identity (if verbalized by the patient): Male Spiritual care concerns: No Comments At the time of my signature, I reviewed and agree with the nursing past medical, surgical, social, and family history. There is no relevant family history pertinent to the patient complaint. Exam Narrative: General: Well-developed, well nourished, in no apparent distress Head: Normocephalic, atraumatic Eyes: Pupils equally round and reactive to light bilaterally, EOM intact, sclera and conjunctive clear, no discharge, lids normal Ears: TMs intact and clear, ear canals clear, no drainage, grossly hearing normal. Nose: Nares patent, no discharge, no inflammation, no sinus tenderness. Mouth: Oral pharynx without lesions or masses, good dentition, MMM. Neck: Supple, trachea midline, no enlargement of anterior or posterior cervical nodes, no thyroid masses or goiter palpable. Cardio: Regular rate and rhythm, s1 and s2 normal, no murmur appreciated. Resp: Clear to auscultation bilaterally, no rhonchi, rales, wheezing or rubs Course Course Emergency Course: Portions of this record may have been created with voice recognition software. Level of Care: Express Care Visit Vital Signs Vital signs: Vital signs reviewed MDM - URI/Sore Throat MDM Narrative Medical decision making narrative: At the time of visit patient is resting on the exam table. Lung sounds are clear and there is no sign of a sinus infection at this time. I suspect patient has URI with postnasal drip. Will send in prescription for prednisone. Supportive measures were discussed with the patient and he voiced understanding of discharge instructions and agrees to treatment plan. Differential Diagnosis Differenti
[2022-08-06 09:22] VITALS: BP 147/95; PULSE 97; RESP 18; TEMP 36.9; O2SAT 100
== END 2022-08-06 09:30 | disposition home or self-care (01) ==
PROVIDERS: Emergency Provider Nurse Practitioner Family; PCP Family Medicine
DX: J06.9 Acute upper respiratory infection, unspecified (principal); Z87.891 Personal history of nicotine dependence; E78.5 Hyperlipidemia, unspecified; Z86.16 Personal history of COVID-19
CPT/HCPCS: 99213; G0463

== ENCOUNTER 2023-08-29 08:55 | Outpatient (CLI) | payer OTHER, SELFPAY ==
[2023-08-29 15:14] LABS: Alanine Aminotransferase 24 U/L (6-50); Alkaline Phosphatase 53 U/L (38-126); Anion Gap 2 mmol/L (4-12); Aspartate Amino Transferase 37 U/L (17-59); Bilirubin,Total 0.8 mg/dL (0.2-1.3); Blood Urea Nitrogen 14 mg/dL (9-20); Calcium 9.2 mg/dL (8.4-10.2); Carbon Dioxide 33 mmol/L (22-30); Chloride 105 mmol/L (98-107); Cholesterol 188 mg/dL (0-200); Estimated Glomerular Filt Rate > 60; Glucose 87 mg/dL (65-110); HDL Direct 47 mg/dL; Potassium 3.9 mmol/L (3.4-5.0); Sodium 140 mmol/L (137-145); Triglycerides 79 mg/dL (<150)
[2023-08-29 15:19] LABS: LDL Cholesterol Direct 118 mg/dL
== END 2023-08-29 08:56 | disposition home or self-care (01) ==
LOC: ANHGOSHLAB 08:56
PROVIDERS: PCP Family Medicine; Visit Provider Internal Medicine Cardiovascular Disease
DX: E78.5 Hyperlipidemia, unspecified (principal)
CPT/HCPCS: 36415; 80053; 80061

== ENCOUNTER 2023-10-22 11:36 | Emergency (ER) | payer OTHER, SELFPAY ==
[2023-10-22] VITALS (7 sets, daily range): BP systolic 135–174; BP diastolic 86–104; PULSE 65–108; RESP 11–19; TEMP 36.4–36.8; O2SAT 96–100
--- NOTE | ~2023-10-22 | XR_ITS ---
EXAMINATION: XR chest 1V DATE: 10/22/2023 12:16 INDICATION: Headache. TECHNIQUE: A single frontal view of the chest was obtained on 2 radiographs. COMPARISON: Chest 2 views 07/17/2021 FINDINGS: There is no pneumonia, pleural effusion, or pneumothorax. The heart size is normal. IMPRESSION: 1. No acute cardiopulmonary disease. Reviewed, dictated and finalized at location A.
--- NOTE | ~2023-10-22 | CT_ITS ---
EXAMINATION: CT brain wo con DATE: 10/22/2023 12:12 INDICATION: Headache. TECHNIQUE: Computed tomography (CT) of the head was performed without intravenous contrast. The mA wa s adjusted according to patient size. Iterative reconstruction technique was employed. The dose-lengt h product was 605.33 mGy-cm. COMPARISON: Head CT 07/17/2021 FINDINGS: There is no intracranial hemorrhage, acute infarction, or abnormal intracranial mass lesion . The ventricles are normal in size. The orbits are normal. There is mild mucosal thickening in the e thmoid sinuses. The mastoid air cells are normal. IMPRESSION: 1. Normal brain. Reviewed, dictated and finalized at location A. IMPRESSION: 1. Normal brain.
--- NOTE | 2023-10-22 11:41 | ECG_ITS ---
Test Date: 2023-10-22 11:44:54 Measurements Intervals [place] Rate: 88 P: 61 SD: 190 QRS: 16 QRSD: 135 T: 85 QT: 357 QTc: 433 Interpretive Statements SINUS RHYTHM LEFT BUNDLE BRANCH BLOCK [120+ ms QRS DURATION, 80+ ms Q/S IN V1/V2, 85+ ms R IN I/aVL/V5/V6] No previous ECG available for comparison Electronically Signed On 10-22-2023 12:01:53 CDT by Pravin Mullins M.D.
[2023-10-22 12:00] LABS: Basophils Percent Auto 0.4 % (0.2-1.2); Eosinophils Percent Auto 0.5 % (0-4.4); Hematocrit 48.6 % (42.0-52.0); Hemoglobin 16.7 g/dL (14.0-18.0); Immature Granulocyte Absolute 0.02 K/mm3 (0.00-0.031); Immature Granulocyte Percent A 0.2 % (0-0.5); Lymphocytes Absolute Auto 1.58 K/mm3 (0.9-3.2); Lymphocytes Percent Auto 19.6 % (18.3-44.2); Mean Corpuscular HGB Conc 34.4 g/dl (32-36); Mean Corpuscular Hemoglobin 31.2 pg (26-34); Mean Corpuscular Volume 90.8 fl (80-100); Mean Platelet Volume 9.4 fl (7.4-10.4); Monocytes Absolute Auto 0.6 K/mm3 (0.1-0.6); Monocytes Percent Auto 7.3 % (2.6-8.5); Neutrophils Absolute Auto 5.8 K/mm3 (1.3-6.7); Platelet Count Result 214 k/mm3 (150-375); Red Blood Count 5.35 M/mm3 (4.6-6.20); Red Cell Distribution Width 12.2 % (11.5-14.5); White Blood Count 8.1 K/mm3 (4.5-10.0)
[2023-10-22 12:09] LABS: INR 0.9; Prothrombin Time 13.1 Seconds (11.1-14.7)
[2023-10-22 12:10] LABS: Partial Thromboplastin Time 27.8 Seconds (22.3-36.8)
[2023-10-22 12:13] LABS: Alanine Aminotransferase 22 U/L (6-50); Albumin Level 4.4 g/dL (3.5-5.1); Alkaline Phosphatase 59 U/L (38-126); Anion Gap 9 mmol/L (4-12); Aspartate Amino Transferase 25 U/L (17-59); Bilirubin,Total 0.7 mg/dL (0.2-1.3); Blood Urea Nitrogen 10 mg/dL (9-20); Calcium 9.8 mg/dL (8.4-10.2); Carbon Dioxide 28 mmol/L (22-30); Chloride 102 mmol/L (98-107); Estimated CRCL calculation 82 ml/min; Estimated Glomerular Filt Rate > 60; Glucose 93 mg/dL (65-110); Potassium 3.8 mmol/L (3.4-5.0); Sodium 139 mmol/L (137-145)
[2023-10-22 12:23] LABS: Troponin I < 0.012 ng/mL (0.000-0.034)
[2023-10-22] MEDS: ACETAMINOPHEN 500 MG TABLET 1000 MG PO (14:52)
[2023-10-22] MEDS: diphenhydrAMINE HCl INJ 50 MG/ML VIAL 25 MG IV PUSH (15:05)
[2023-10-22] MEDS: KETOROLAC 15 MG/ML VIAL (*BKC) IV PUSH (15:09)
[2023-10-22] MEDS: SODIUM CHLORIDE 0.9% IV 1,000 ML 999 ML IV CONT (15:17)
[2023-10-22 15:27] LABS: Influenza A QL RT-PCR Negative (Negative); Influenza B QL RT-PCR Negative (Negative); RSV RNA, RT-PCR Negative (Negative); SARS-CoV-2 RNA PCR Negative (Negative)
--- NOTE | 2023-10-22 16:40 | ED.GENADULT ---
HPI - General Adult General Chief complaint: Neuro Symptoms/Deficit Stated complaint: Headache Time Seen by Provider: 10/22/23 13:36 History of Present Illness HPI narrative: This is a 58-year-old male presenting ED for headache. Patient says his headache is in achy pain in the front of his head. Is exacerbated by his chronic neck shoulder pain. No fevers, neurologic deficits, sore throat, nausea/vomiting/ diarrhea. Patient has been having intermittent sharp pains on the left side of his chest as well. These last for seconds at a time. Patient has not taken anything for pain. No other complaints. Related Data Allergies Allergy/AdvReac Type Severity Reaction Status Date / Time atorvastatin Allergy Unknown Joint Pain Verified 10/22/23 11:37 [facility] Past Medical History Medical History Cellulitis of head or scalp Chronic low back pain with right-sided sciatica Chronic neck pain COVID-19 Hx of malignant neoplasm of colon Hyperlipidemia LBBB (left bundle branch block) SYL (obstructive sleep apnea) Pulmonary nodules Surgical History Surgical History No pertinent past surgical history Family History Family History Grandparent Diabetes mellitus Other Diabetes mellitus Social History Social History Years smoked: 2 Smoking status: Former smoker Tobacco type: cigarettes Second hand tobacco smoke exposure: No Smoking end date: 03/11/79 Alcohol intake: never Substance use: never Substance use type: does not use Lack of Transportation: No Lack of Food: Never True Current Housing: I Have Housing Concerned About Future Housing: No Difficulty Paying Gas/Electric Bills: No Difficulty Paying for Meds: No Currently Unemployed: No Education: High School Diploma/GED Difficulty w/ Childcare or Family Care: No Living arrangements: with family Gender identity (if verbalized by the patient): Male Spiritual care concerns: No Exam Narrative: APPEARANCE: No apparent distress. Head: atraumatic. EYES: EOMI, NOSE: Atraumatic NECK: Trachea midline, soft, tenderness to palpation over the trapezius and paracervical muscles RESPIRATORY: No increased rate of breathing there auscultation CARDIOVASCULAR: RRR, no peripheral edema ABDOMINAL: Non-distended, soft nontender MUSCULOSKELETAl: No obvious deformities NEURO: Alert. Cranial nerves 2-12 grossly intact. Sensation light touch, motor function cerebellar function intact for 4 extremities. Gait exam was normal. SKIN:: Warm, dry. Normal color PSYCHIATRIC: Normal affect Course Vital Signs Vital signs: Vital Signs Temperature 97.6 F 10/22/23 11:38 Pulse Rate 108 H 10/22/23 11:38 Respiratory Rate 16 10/22/23 11:38 Blood Pressure 174/95 H 10/22/23 11:38 Pulse Oximetry 100 10/22/23 11:38 Oxygen Delivery Room Air 10/22/23 11:38 Temperature 98.3 F 10/22/23 13:34 Pulse Rate 70 10/22/23 16:22 Respiratory Rate 16 10/22/23 16:22 Blood Pressure 135/86 10/22/23 16:22 Pulse Oximetry 100 10/22/23 16:22 Oxygen Delivery Room Air 10/22/23 11:38 Medical Decision Making [facility] Narrative Medical decision making narrative: -Course: 58-year-old male presenting with a frontal headache. Given a migraine cocktail with complete resolution of symptoms. CT head and chest pain workup were unremarkable. On re-evaluation patient is resting comfortably. Patient discharged with return precautions and primary care follow-up. -DDX includes but is not limited to: Tension headache, migraine headache, sinus headache, ICH, ACS, pleurisy, -Co-morbidities complicating care: Chronic pain -Social determinants of health: -Independent interpretation of studies: CBC, metabolic panel, troponin viral s
== END 2023-10-22 17:10 | disposition home or self-care (01) ==
PROVIDERS: Emergency Medicine; Emergency Provider Emergency Medicine; PCP Family Medicine
DX: R51.9 Headache, unspecified (principal); Z20.822 Contact with and (suspected) exposure to COVID-19; E78.5 Hyperlipidemia, unspecified; G47.33 Obstructive sleep apnea (adult) (pediatric); Z87.891 Personal history of nicotine dependence; Z86.16 Personal history of COVID-19; I44.7 Left bundle-branch block, unspecified
CPT/HCPCS: 36415; 70450; 71045; 80053; 84484; 85025; 85610; 85730; 87637; 93005; 96361; 96374; 96375; 99284; A9270; J1200; J1885; J7030

== ENCOUNTER 2024-01-22 07:48 | Emergency (ER) | payer OTHER, SELFPAY ==
--- NOTE | ~2024-01-22 | CT_ITS ---
EXAMINATION: CT lumbar spine wo con DATE: 01/22/2024 10:39 INDICATION: Low back pain. TECHNIQUE: Computed tomography (CT) of the lumbar spine was performed without intravenous contrast. A utomated exposure control and iterative reconstruction technique were employed. The dose-length produ ct was 977.60 mGy-cm. COMPARISON: None FINDINGS: There is 5 degrees dextrocurvature of lumbar spine. There is mild chronic anterior wedging of T12 and L1 vertebral bodies. There is mildly decreased disc height at L1-L2, L4-L5, and L5-S1. The following disc levels are specifically discussed: L1-L2: There is a left foraminal protrusion. There is mild bilateral facet joint osteoarthritis. Ther e is mild left neural foraminal stenosis. There is no central canal stenosis. L2-L3: The disc does not extend beyond the endplate margin. There is mild bilateral facet joint osteo arthritis. There is no neural foraminal stenosis. There is no central canal stenosis. L3-L4: The disc is bulging. There is severe right and moderate left facet joint osteoarthritis. There is mild bilateral neural foraminal stenosis. There is mild central canal stenosis. L4-L5: The disc is bulging. There is mild bilateral facet joint osteoarthritis. There is mild bilater al neural foraminal stenosis. There is mild central canal stenosis. L5-S1: The disc is bulging. There is mild bilateral facet joint osteoarthritis. There is mild bilater al neural foraminal stenosis. There is mild central canal stenosis. IMPRESSION: 1. Mild lumbar spondylosis. Reviewed, dictated and finalized at location A. O SPECIALIST IMPRESSION: 1. Mild lumbar spondylosis.
[2024-01-22 07:50] VITALS: BP 161/103; PULSE 123; RESP 19; TEMP 36.4; O2SAT 98
[2024-01-22 09:44] VITALS: BP 129/85; PULSE 83; RESP 15; O2SAT 98
--- NOTE | 2024-01-22 10:37 | ED.GENADULT ---
HPI - General Adult General Chief complaint: Back Pain/Injury Stated complaint: back pain Time Seen by Provider: 01/22/24 09:22 History of Present Illness HPI narrative: 58-year-old male with history of chronic back pain recurrent sciatica presents to the emergency department complaining now of right leg pain. Patient states the pain originates in his lower back and radiates down his right leg. Patient was started on muscle relaxant and low-dose prednisone and states this has not been helping him. Patient has been taking some Aleve in addition to this and this has also helped to a small amount but patient states that the pain was worsened this morning so he presented to the emergency department for evaluation. Related Data Allergies Allergy/AdvReac Type Severity Reaction Status Date / Time atorvastatin Allergy Unknown Joint Pain Verified 10/22/23 11:37 Review of Systems Review of Systems: All systems reviewed & are unremarkable except as noted in HPI and below PMFSH Past Medical History Medical History Cellulitis of head or scalp Chronic low back pain with right-sided sciatica Chronic neck pain COVID-19 Hx of malignant neoplasm of colon Hyperlipidemia LBBB (left bundle branch block) SYL (obstructive sleep apnea) Pulmonary nodules Surgical History Surgical History No pertinent past surgical history Family History Family History Grandparent Diabetes mellitus Other Diabetes mellitus Social History Social History Years smoked: 2 Smoking status: Former smoker Tobacco type: cigarettes Second hand tobacco smoke exposure: No Smoking end date: 03/11/79 Alcohol intake: never Substance use: never Substance use type: does not use Lack of Transportation: No Lack of Food: Never True Current Housing: I Have Housing Concerned About Future Housing: No Difficulty Paying Gas/Electric Bills: No Difficulty Paying for Meds: No Currently Unemployed: No Education: High School Diploma/GED Difficulty w/ Childcare or Family Care: No Living arrangements: with family Gender identity (if verbalized by the patient): Male Spiritual care concerns: No Exam Narrative: APPEARANCE: uncomfortable appearing HEAD: normocephalic, atraumatic. EYES: PERRLA/EOMI, conjunctivae clear. NOSE: Normal no drainage EARS:TMS clear with good light reflex. THROAT: Pharynx clear, no exudate. NECK: Supple. No adenopathy, no masses. RESPIRATORY: Airway patent, respirations nonlabored. Clear to auscultation bilaterally, no rales, rhonchi, wheezing. CARDIOVASCULAR: Regular rate and rhythm without murmurs rubs or gallops. ABDOMINAL: Soft, nontender, nondistended, normal bowel sounds MUSCULOSKELETAL: Lower back tenderness to palpation NEURO: Alert. Cranial nerves II through XII intact. Good gait. Good coordination SKIN: Warm, dry. Normal Color Course Vital Signs Vital signs: Vital Signs Temperature 97.6 F 01/22/24 07:50 Pulse Rate 123 H 01/22/24 07:50 Respiratory Rate 19 01/22/24 07:50 Blood Pressure 161/103 H 01/22/24 07:50 Pulse Oximetry 98 01/22/24 07:50 Temperature 97.7 F 01/22/24 13:58 Pulse Rate 83 01/22/24 13:58 Respiratory Rate 20 01/22/24 13:58 Blood Pressure 142/96 H 01/22/24 13:58 Pulse Oximetry 95 01/22/24 13:58 Medical Decision Making MDM Narrative Medical decision making narrative: 58-year-old male presenting emergency department for evaluation for persistent sciatica pain. Patient has been on a low-dose steroid and muscle relaxant but states this is not helping. Patient did feel improved with treatment with IV pain medications in the emergency department. Patient was also treated with IM dexamethasone. Patient does feel comfortable with the plan for discharge to home. Lumbar CT showed no acute fracture dislocation. Patient will be started on Medrol Dosepak provided narcotic pain medications for pain control and patient was strongly encouraged close follow-up with his primary care physician to have an outpatient MRI. Differential Diagnosis Differential Diagnosis: lumbar fracture, diskitis, osteomyelitis, sciatica, back strain Vital Signs Vital Signs: Vital Signs Temperature 97.6 F 01/22/24 07:50 Pulse Rate 123 H 01/22/24 07:50 Respiratory Rate 19 01/22/24 07:50 Blood Pressure 161/103 H 01/22/24 07:50 Pulse Oximetry 98 01/22/24 07:50 Temperature 97.7 F 01/22/24 13:58 Pulse Rate 83 01/22/24 13:58 Respiratory Rate 20 01/22/24 13:58 Blood Pressure 142/96 H 01/22/24 13:58 Pulse Oximetry 95 01/22/24 13:58 Imaging Data Radiologist's impression: Impressions Lumbar Spine CT 01/22/24 10:41 IMPRESSION: 1. Mild lumbar spondylosis. Discharge Plan Discharge Clinical Impression: Sciatica Patient Disposition: Home, Self-Care Condition: Stable Instructions: Antibiotic Form, Sciatica (ED), Back Pain (ED) Additional Instructions: Medrol Dosepak as directed until completed. Flexeril for muscle spasm. Overgaard as needed for additional pain control. Have close follow-up with your primary care physician to have an outpatient MRI. If you have any worsening symptoms then please call or return to the emergency department. Prescriptions: New cyclobenzaprine 10 mg tablet 10 mg PO BID PRN (Reason: muscle spasm) Qty: 14 0RF methylprednisolone [Medrol (Yosvany)] 4 mg tablets,dose pack See Rx Instructions .ROUTE .COMPLEX Qty: 21 0RF Rx Instructions: for 6 days hydrocodone-acetaminophen 5-325 mg tablet 1 tablet PO Q12H PRN (Reason: pain) Qty: 14 0RF No Action aspirin [Enteric Coated Aspirin] 81 mg tablet,delayed release (DR/EC) 81 mg PO DAILY Qty: 90 3RF Follow-up/Referrals: Lindsey Boyd MD [Primary Care Provider] -
[2024-01-22] MEDS: HYDROmorphone HCL INJ (*CRX) 1 MG/ML SYR IV PUSH (10:56)
[2024-01-22] MEDS: dexAMETHasone SOD PHOS INJ 10 MG/ML 1 ML VIAL IM (11:01)
[2024-01-22 11:37] VITALS: BP 132/88; PULSE 77; RESP 19; O2SAT 96
[2024-01-22 13:58] VITALS: BP 142/96; PULSE 83; RESP 20; TEMP 36.5; O2SAT 95
== END 2024-01-22 14:02 | disposition home or self-care (01) ==
PROVIDERS: Emergency Provider Emergency Medicine; PCP Family Medicine
DX: M54.41 Lumbago with sciatica, right side (principal); E78.5 Hyperlipidemia, unspecified; G47.33 Obstructive sleep apnea (adult) (pediatric); Z86.16 Personal history of COVID-19; Z87.891 Personal history of nicotine dependence; M47.816 Spondylosis without myelopathy or radiculopathy, lumbar region
CPT/HCPCS: 72131; 96372; 96374; 99284; J1100; J1171

== ENCOUNTER 2024-03-09 07:29 | Outpatient (CLI) | payer OTHER, SELFPAY ==
--- NOTE | ~2024-03-09 | MR_ITS ---
MRI of the lumbar spine Clinical History: Right sciatica Technique: Axial T2-weighted images, and sagittal T1-weighted, T2-weighted, and and T2 fat-sat images were acquired. COMPARISON: 07/08/2020 Findings: There is no fracture or subluxation of lumbar spine. Vertebral bodies maintain normal heigh t and alignment. No bone marrow signal abnormality evident. At L1-L2, there is no significant disc bulge or herniation. There is mild facet hypertrophy. No centr al canal stenosis or neural foraminal narrowing. At L2-L3, there is no disc bulge or herniation. There is mild facet hypertrophy. No central canal roxann nosis or neural foraminal narrowing. At L3-L4, there is no disc bulge or herniation. There is mild facet hypertrophy. No central canal roxann nosis or neural foraminal narrowing. At L4-L5, there is diffuse disc bulge with moderate facet arthropathy. There is superimposed right pa racentral disc extrusion extending inferiorly. No central canal stenosis there is moderate right neur al foraminal narrowing, and minimal left neural foraminal narrowing. At L5-S1, there is mild disc bulge and mild to moderate facet arthropathy. No central canal stenosis. There is mild to moderate right neural foraminal narrowing. Left neural foramen is minimally narrowe d. Impression: Moderate degenerative spondylosis at L4-L5, with associated right paracentral disc extrusion. Please see details above. Moderate degenerative spondylosis at L5-S1. Reviewed, dictated and finalized at [facility]. HROOM AIDE Impression: Moderate degenerative spondylosis at L4-L5, with associated right paracentral d isc extrusion. Please see details above. Moderate degenerative spondylosis at L5-S1.
--- OUTSIDE RECORDS SUMMARY | 2024-03-16 06:42 | XMS_ITS ---
Author Name [employer] [facility] Organization [facility] [employer] Address [address] [place] [address] Insurance Providers: All historical and current Section Date Range: From patient's date of to the date document was created. This section includes the names of all active insurance providers for the patient. Insurance Provider Type of Coverage Plan Name Start of Policy Coverage End of Policy Coverage Group Number Member ID Insurance Provider's Telephone Number Policy Colvin's Name Patient's Relationship to Policy Colvin [place] [employer] PREFERRED PROVIDER ORGANIZAT ION (PPO) [facility] Dec 20, 2014 [id number] [phone] SIRENA JO JR S PATIENT [employer] [employer] [place] PREFERRED PROVIDER ORGANIZAT ION (PPO) [facility] Dec 20, 2014 [id number] [phone] SIRENA JO JR S PATIENT [employer] [employer] [place] PREFERRED PROVIDER ORGANIZAT ION (PPO) HORIZ ON [facility] J Dec 20, 2014 [id number] [phone] SRIENA JO JR S PATIENT [place] PREFERRED PROVIDER ORGANIZAT ION (PPO) HORIZ ON [facility] J Dec 20, 2014 [id number] [phone] SIRENA JO JR PATIENT [facility] ([id number]) RX PRESCRIPT ION RX PLAN Mar 11, 2015 [id number] [phone] YASH JO PATIENT [employer] [facility]) PRESCRIPT ION RX PLAN Dec 20, 2014 [id number] [phone] YASH JO PATIENT [facility] R Dec 20, 2014 [id number] [phone] YASH JO PATIENT [facility] PREFERRED PROVIDER ORGANIZAT ION (PPO) PFIZE R Dec 20, 2014 [id number] YASH JO PATIENT Selected Encounter This section includes the information on record at [place] for the Encounter. Date/Time Encounter Type Encounter Description Reason Pro vider Source Sep 04, 2023 07:20 PM Outpatient Encounter ADMIN PAT ACTIVTIES (MASNONCT) IHE Encounter Template Text not used by [place] Encounter Notes: All associated encounter notes This section contains the clinical notes associated to the Encounter. Date/Time Encounter Note(s) Provider Source Sep 04, 2023 07:26 PM ADMINISTRATIVE NOT E: LOCAL TITLE: SCHEDULING NOTE STL STANDARD TITLE: ADMINISTRATIVE NOTE DATE OF NOTE: SEP 04, 2023@19:26 ENTRY DATE: SEP 04, 2023@19:26:27 AUTHOR: SHAHID MOYA EXP COSIGNER: URGENCY: STATUS: COMPLETED Additional comments: CALLED AND LEFT MESSAGE FOR PATIENT TO CALL TO SCHEDULE A NEW PATIENT APPOIgNTMENT PER INACTIVE LIST. ADDITIONAL RESULTS FROM SCHEDULING ATTEMPTS: /livier/ SHAHID MOYA Rn Trauma, HUD-VAS Signed: 09/04/2023 19:[address] [facility] Sep 04, 2023 07:20 PM PRIMARY CARE LETTE RS: LOCAL TITLE: PC NEW PATIENT NO CONTACT LETTER STL STANDARD TITLE: PRIMARY CARE LETTERS DATE OF NOTE: SEP 04, 2023@19:20 ENTRY DATE: SEP 04, 2023@19:20:49 AUTHOR: SHAHID MOYA EXP COSIGNER: URGENCY: STATUS: COMPLETED [facility] [address] [place] [address] SEP 04, 2023 YASH CAMPBELL [address] [place], [place] [address] Dear Yash Campbell, Thank you for your interest in establishing care with a Primary Care Provider at the [facility]. Your Primary Care Provider is the clinical leader of your Patient Aligned Care Team (PACT). Your PACT Team manages and coordinates your comprehensive health care services. Primary Care includes, but is not limited to: diagnosis and management of acute and chronic health conditions, health promotion, disease prevention, overall care management, post-deployment care, and patient and caregiver education. If you would like more information, please visit [email or web address]. We have been unsuccessful in our attempts to contact you to schedule your initial appointment. Based on your current residence, the clinic recommended for your primary care needs is: [facility] [address] [address], [address] [place] [address] We are happy to accommodate your request with another clinic, if needed. Please call to schedule your initial appointment. Thank you for your service, and we look forward to hearing from you. Sincerely, SHAHID MOYA Rn Trauma, YASH ROACH JR, SELINDA N [facility]
--- OUTSIDE RECORDS SUMMARY | 2024-03-16 06:42 | XMS_ITS | Continuity of Care Document ---
Author Name [facility] Organization [facility] Care Team Providers Care Autopsy Assistant Name Role Phone [facility] Unavailable Unavailable Problems Combined list of problems from Department of Defense and Veterans Affairs facilities. It does not include entries that were removed or entered in error. Problem Status Onset Date Problem Type Date of Resolution Comments Source dermatophytosis tinea capitis Inactive Condition DoD insufficient liquids Inactive Condition DoD exposure to weather conditions causing exhaustion Inactive Condition DoD hyperlipidemia Active Condition DoD visit for: screening exam hypertension Inactive Condition DoD sinusitis Active Condition DoD dermatitis Inactive Condition DoD visit for: follow-up exam Inactive Condition DoD hypertension systemic Active Condition DoD Observation For Suspected Medical Condition Inactive Condition DoD visit for: issue repeat prescription Inactive Condition DoD atypical chest pain Inactive Condition D oD red blood in bowel movement (hematochezia) Inactive Condition DoD Observation For Suspected Condition Inactive Condition DoD anxiety disorder NOS Active Condition D oD visit: ears/hearing exam for hearing conservation, treatment Active Condition DoD visit for: services physical Active Condition DoD visit for: general multisystem exam Inactive Condition DoD visit for: examination of subpopulation Inactive Condition DoD refractive error - myopia Active Condition DoD astigmatism Active Condition DoD assessment of patient condition work status Inactive Condition DoD Blood Pressure Isolated Elevated Active Condition MONITOR, CHANGE DIET D/C ETOH WILL OBATIN CBC CHEM UA PSA DoD visit for: ears, nose, and throat exam Inactive Condition DoD Patient Education - Injury Prevention Inactive Condition DoD conjunctivitis Inactive Condition DoD upper respiratory infection Inactive Condition DoD Need For Vaccination Against Combinations Of Diseases Inactive Condition DoD Allergies, Adverse Reactions, Alerts Combined list of allergies from Department of Defense and Veterans Affairs facilities. It does not include entries that were removed or entered in error. Substance Category Reaction Severity Reaction type Status Date Reported Comments Source No Known Allergies Drug allergy (disorder) active 10/31/2010 [facility], [place] Immunizations Combined list of available immunizations from the Department of Defense and Veterans Affairs facilities. Immunization Series Date Given Administered By Site Reaction Lot Number CVX Code Drug Director Of Casework Department Status Comments Source Influenza, seasonal, injectable, preservative free 2014 ALUL, () Not Given Influenza , seasonal, injectabl e, preservat lior free DoD Influenza, seasonal, injectable 0 2011 141 Sanofi Pasteur (PMC) complet ed Influenza , seasonal, injectabl e DoD influenza virus vaccine, live, attenuated, for intranasal use 1 2010 [id number] [employer]. (MED) complet ed influenza virus vaccine, live, attenuate d, for intranasa l use DoD Influenza, seasonal, injectable 0 2010 141 [employer]. (NOV) complet ed Influenza , seasonal, injectabl e DoD influenza virus vaccine, live, attenuated, for intranasal use 1 2009 [id number] [employer]. (MED) complet ed influenza virus vaccine, live, attenuate d, for intranasa l use DoD varicella virus vaccine 1 2009 UNK 21 Unknown (UNK) Not Given varicella virus vaccine DoD typhoid Vi capsular polysaccharid e vaccine 1 2009 [id number] Sanofi Pasteur (PMC) complet ed typhoid Vi capsular polysacch aride vaccine DoD tetanus toxoid, reduced diphtheria toxoid, and acellular pertu is vaccine, adsorbed 1 2009 [id number] 115 [employer] (SKB) complet ed tetanus toxoid, reduced diphtheri a toxoid, and acellular pertussis vaccine, adsorbed DoD Novel influenza-H1N 1-09, injectable 1 2009 [id number] Unknown (UNK) comple t ed Novel influenza -G1J3-62, injectabl e DoD influenza virus vaccine, split virus (incl. purified surface antigen)-reti red CODE 1 2008 [id number] 15 [employer] (CSL) complet ed influenza virus vaccine, split virus (incl. purified surface antigen)- retired CODE DoD hepatitis B vaccine, adult dosage 3 2006 [id number] 43 [employer] (SKB) complet ed hepatitis B vaccine, adult dosage DoD hepatitis A vaccine, adult dosage 3 2006 [id number] 52 [employer] (SKB) complet ed hepatitis A vaccine, adult dosage DoD influenza virus vaccine, live, attenuated, for intranasal use 1 2005 [id number] 111 [employer]. (MED) complet ed influenza virus vaccine, live, attenuate d, for intranasa l use DoD influenza virus vaccine, split virus (incl. purified surface antigen)-reti red CODE 1 2005 UNK 15 Unknown (UNK) comple t ed influenza virus vaccine, split virus (incl. purified surface antigen)- retired CODE DoD meningococcal polysaccharid e vaccine (MPSV4) 1 2005 UNKNOWN 32 Unknown (UNK) comple t ed meningoco ccal polysacch aride vaccine (MPSV4) DoD hepatitis A and hepatitis B vaccine 2 2005 UNKNOWN 104 Unknown (UNK) comple t ed hepatitis A and hepatitis B vaccine DoD tetanus and diphtheria toxoids, adsorbed, preservative free, for adult use (2 Lf of tetanus toxoid and 2 Lf of diphtheria toxoid) 1 2004 Unknown, Provider [id number] Sanofi Pasteur ([facility]) complet ed tetanus and diphtheri a toxoids, adsorbed, preservat lior free, for adult use (2 Lf of tetanus toxoid and 2 Lf of diphtheri a toxoid) DoD typhoid Vi capsular polysaccharid e vaccine 1 2004 [id number] Sanofi Pasteur ([facility]) complet ed typhoid Vi capsular polysacch aride vaccine DoD hepatitis A and hepatitis B vaccine 1 2004 [id number] 104 Unknown (UNK) complet ed hepatitis A and hepatitis B vaccine DoD influenza virus vaccine, split virus (incl. purified surface antigen)-reti red CODE 0 1983 Unknown, Provider UNK 15 Sanofi Pasteur ([facility]) complet ed influenza virus vaccine, split virus (incl. purified surface antigen)- retired CODE DoD trivalent poliovirus vaccine, live, oral 0 1982 Unknown, Provider UNK 02 Unknown (UNK) complet ed trivalent polioviru s vaccine, live, oral DoD measles virus vaccine 0 1982 Unknown, Provider UNK 05 Unknown (UNK) complet ed measles virus vaccine DoD rubella virus vaccine 0 1982 Unknown, Provider UNK 06 Unknown (UNK) complet ed rubella virus vaccine DoD tetanus and diphtheria toxoids, adsorbed, preservative free, for adult use (2 Lf of tetanus toxoid and 2 Lf of diphtheria toxoid) 0 1982 Unknown, Provider UNK 09 Unknown (UNK) complet ed tetanus and diphtheri a toxoids, adsorbed, preservat lior free, for adult use (2 Lf of tetanus toxoid and 2 Lf of diphtheri a toxoid) [facility] meningococcal polysaccharid e vaccine (MPSV4) 0 1982 Unknown, Provider UNK 32 Unknown (UNK) complet ed meningoco ccal polysacch aride vaccine (MPSV4) DoD Encounters Combined list of: 1) Encounters from Department of Veterans Affairs facilities going back up to thelast 18 months. 2) Encounters from the Department of Defense facilities going back up to 280 months. Location Location Details Encounter Type Encounter Number Reason For Visit Attending Provider ADM Date DC Date Status Disposition Source [facility] [place]Immun[place]) OUTPATIENT [id number] NATALIE JASMINE 12/26 Released w/o Limitations [facility] [place](Immu nizatio ns) [facility] [place](C-TMC Er Module) OUTPATIENT [id number] GRECIA Miller 06/05 Sick at Home/Quarter s [facility] [place] [facility] [place] [place] [facility] [place]) OUTPATIENT [id number] [facility] [place] MATT 06/25 Released with Work/Duty Limitations [facility] [place](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 Center) [facility] [place]([facility]) OUTPATIENT [id number] DD [address] [facility] [place] 06/25 Released w/o Limitations [facility] [place](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 Center) [facility] [place]([facility]) OUTPATIENT [id number] DD [address] [facility] [place] 06/25 Released w/o Limitations [facility] [place](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 Center) [facility] [place](IEP Hearing Conservat ion Exam) OUTPATIENT [id number] SHALINI Donahue 06/25 Released w/o Limitations [place] Sales [place] OUTPATIENT [id number] CHECK BLOOD PRESSUR E RESULTS AND LABS BRYONREGAN RosenbergREY 07/03 Rele[place] w/[place] Limitations [place] [place] [facility]) OUTPATIENT [id number] DEMOB, DD 2697 [facility] [place] 03/13 Released w/[place] Limitations 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) [place] OUTPATIENT [id number] [facility] SURJIT TAYLOR 03/13 Released w/o Limitations [place] Hearing Conservat ion) OUTPATIENT [id number] MARIA DEL CARMEN BRITO 12/15 [place] [id number] DEAN KENNEDY 01/23 [place]ased [place]itations [place]) [place] [id number] ER PT/Anxi ety with chest discomf ort LILLIE JOLLEY 01/23 [place] OUTPATIENT [id number] pt here to see sol WOODS s visit. GAVIN MARVIN 01/23 [place]ased [place] Limitations [place] [place] [place] OUTPATIENT [id number] Rx refill. NASIOTIS, GAVIN 02/23 [place]ased [place] Limitations [place] [place] [place] OUTPATIENT [id number] Rx refill. NASIOTIS, GAVIN 04/05 [place]ased [place] Limitations [place] [place]) [place] [id number] RAO QUIÑONEZ 04/06 [place] Home/[place] [place] OUTPATIENT [id number] BP eval. NASIOTIS, GAVIN 04/13 [place] Limitations [place] [place] OUTPATIENT [id number] f/u BP. NASIOTIS, GAVIN 04/18 [place] [place] OUTPATIENT [id number] Blood Pressur e Check BULLLINA ZHOU JULY 10 [place]ased [place]/o Limitations [place] [place] OUTPATIENT [id number] c/o sinus infecti on. NASIOTIS, GAVIN 04/21 [place] [place]am [facility] [id number] [place] HIV/PHA NAZIA DIANE 04/26 [place] Phys[facility]am [facility] [place] OUTPATIENT [id number] Rx refill. MYRIAM YU 06/28 [place] [place] OUTPATIENT [id number] f/u MYRIAM YU 06/29 [place] [place] OUTPATIENT [id number] f/u previou s visit. MYRIAM YU 07/04 [place] [place] OUTPATIENT [id number] c/o reactio n to Rx, 1x BP check. MYRIAM YU 08/02 [place]o Limitations [place] [place]) [place] [id number] ESETR GAUTHIER 08/04 [place]ased [place]/o Limitations [place] [id number] SERA BONILLA 09/25 Released with Work/Duty Limitations [place] OUTPATIENT [id number] Rx refill. WHITNEY RUANO 09/28 [place]/o Limitations [place] [place] OUTPATIENT [id number] follow- up MYRIAM YU 10/27 [place]/o Limitations [place] [place] [employer] OUTPATIENT [id number] NADEGE Juárez 10/31 [place] Limitations 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 [employer] OUTPATIENT [id number] c/o sinus infecti on. GIGIMARILUZIP Hattie 10/31 [place]ased [place]/o Limitations [place] Outpatient Encounter [id number] 3 09/03 [facility] Procedures Combined list of: 1) Procedures from Department of [facility] Affairs facilities going back up to thelast 18 months, not all VA non-surgical procedures are included; 2) All procedures from the Department of Defense facilities. Procedure Procedure Type Code Date Perfomer Comments Sour e Venipuncture Venipuncture 21312 011 NAZIA DIANE [facility] Pulse Oximetry Pulse Oximetry 44067 010 LILLIE JOLLEY [facility] Cardiovascular Stre Test Cardiovascular Stress Test 38818 010 LILLIE JOLLEY [facility] Clinical Social Work Individual Outpatient Counseling 30 Minutes Clinical Social Work Individual Outpatient Counseling 30 Minutes [id number] JESSA PULIDO Individual counseling with . Supportive counseling and coping skills were reinforced. Total time 20 minutes [facility] Audiometry Group Testing Audiometry Group Testing [id number] 010 RYAN WEBSTER [facility] Screening Test Of Visual Acuity, Quantitative, Bilateral Screening Test Of Visual Acuity, Quantitative, Bilateral 91391 007 LAILA MAK Determination Of Refractive State Determination Of Refractive State 14084 007 LAILA MAK [facility] Spectacles Services Fitting Monofocal Except For Aphakia Spectacles Services Fitting Monofocal Except For Aphakia 49787 007 LALIA MAK [facility] Threshold Audiogram (Pure Tone) Threshold Audiogram (Pure Tone) 01039 006 SHALINI ISBELL [facility] Ear mold/insert, not disposable, any type SHALINI ISBELL [facility] Immunization Administration By Injection, One Vaccine Immunization Administration By Injection, One Vaccine 35929 005 TATIANA LUX [facility] Td Vaccine Td Vaccine 84472 TATIANA LUX [facility] ELECTROCARDIOGRAM, ROUTINE ECG WITH AT LEAST 12 LEADS; WITH INTERPRETATION AND REPORT [facility] FITTING OF SPECTACLES, EXCEPT FOR APHAKIA; MONOFOCAL [facility] IMMUNIZATION ADMINISTRATION BY INTRANASAL OR ORAL ROUTE; 1 VACCINE (SINGLE OR COMBINATION VACCINE/TOXOID) [facility] EAR MOLD/INSERT, NOT DISPOSABLE, ANY TYPE [facility] TETANUS AND DIPHTHERIA TOXOIDS (TD) ADSORBED WHEN ADMINISTERED TO INDIVIDUALS 7 YEARS OR OLDER, FOR INTRAMUSCULAR USE [facility] EDUCATIONAL SUPPLIES, SUCH BOOKS, TAPES, AND PAMPHLETS, FOR THE PATIENT'S EDUCATION AT COST TO PHYSICIAN OR OTHER QUALIFIED HEALTH SLURRY MAN [facility] ELECTROCARDIOGRAM, ROUTINE ECG WITH AT LEAST 12 LEADS; WITH INTERPRETATION AND REPORT [facility] COLLECTION OF VENOUS BLOOD BY VENIPUNCTURE [facility] BLOOD PRESSURE MEASURED (CKD)(DM) [facility] CARDIOVASCULAR STRESS TEST USING MAXIMAL OR SUBMAXIMAL TREADMILL OR BICYCLE EXERCISE,CONTINUOUS ELECTROCARDIOGRAPHIC MONITORING,AND/OR PHARMACOLOGICAL STRESS;W SUPERVISION,INTERPRETAT ION AND REPORT [facility] INDIVIDUAL PSYCHOTHERAPY, INSIGHT ORIENTED, BEHAVIOR MODIFYING AND/OR SUPPORTIVE, IN AN OFFICE OR OUTPATIENT FACILITY, APPROXIMATELY 20 TO 30 MINUTES [id number] WITH THE PATIENT [facility] INTRODUCTION OF NEEDLE OR INTRACATHETER, VEIN [facility] INFLUENZA VIRUS VACCINE, TRIVALENT, LIVE (LAIV3), FOR INTRANASAL USE [facility] SKIN TEST; TUBERCULOSIS, INTRADERMAL [facility] AUDIOMETRIC TESTING OF GROUPS [facility] TYPHOID VACCINE, ACETONE-KILLED, DRIED (AKD), FOR SUBCUTANEOUS USE (U.S. ) [facility] SCREENING TEST OF VISUAL ACUITY, QUANTITATIVE, BILATERAL [facility] Social History Combined list of available smoking, tobacco, and other social history from Department of Defense and Veterans Affairs facilities. Social History Type Response Date Comment Sour e This section is an empty social history section. DoD
--- OUTSIDE RECORDS SUMMARY | 2024-03-16 06:43 | XMS_ITS | Clinical Summary ---
Author Organization [facility] Address [address], [facility] [address] [place] [address] Phone Care Team Providers Care Detasseler Name Role Phone Brian Boyd MD Primary Care Provider Allergies No known active allergies Medications aspirin EC 81 MG Tablet Delayed Response Take 81 mg by mouth daily. 3 05/07/2017 Active acetaminophen (TYLENOL) 500 MG Tablet Take 1,000 mg by mouth Daily as needed. Active Multiple Vitamin (MULTI-VITAMIN PO) Take 1 Tab by mouth daily. Active [place]-3 Fatty Acids (OMEGA 3 PO) Take 1 Tab by mouth daily. Active Cholecalciferol (VITAMIN D-3 SUPER STRENGTH) 2000 UNIT Tablet Take 1 Tab by mouth daily. Active Ascorbic Acid (VITAMIN C PO) Take 1 Tab by mouth daily. Active doxycycline hyclate (VIBRAMYCIN) 100 MG Capsule Take 1 Cap by mouth daily. 11 12/19/2017 Active aspirin EC 81 MG Tablet Delayed Response Take 1 Tab by mouth daily. Active Naproxen Sodium (ALEVE) 220 MG CapsuleIndicatio ns:Pain Take 1-2 Tabs by mouth as needed. Active otherIndications :Back Pain,FORMULA 303 1 Cap by Other route daily. Active Family History Medical History Relation Name Comments Diabetes Maternal Grandfather Cancer Maternal Grandmother breast Diabetes Maternal Uncle Diabetes Paternal Uncle Relation Name Status Comments Father Alive Maternal Grandfather Maternal Grandmother Maternal Uncle Mother Alive Paternal Uncle Social History Tobacco Use Types Packs/Day Years Used Date Smoking Tobacco: Former Cigarettes 0.3 2 0 08/17/2011 - 08/16/2013 Smokeless Tobacco: Current Snuff Alcohol Use Standard Drinks/Week Comments Yes 1 (1 standard drink = 0.6 oz pur e alcohol) Sex and Gender Information Value Date Recorded Sex Assigned at Not on file Legal Sex Male 5:41 PM CDT Gender Identity Not on file Sexual Orientation Not on file Occupation Industry Job Start Date Job End Date [employer] Not on file Not on file Not on file Last Filed Vital Signs Vital Sign Reading Time Taken Comments Blood Pressure 126/91 03/17/2018 9:18 AM ROOM SERVICE WAITER Pulse 62 03/17/2018 9:18 AM ROOM SERVICE WAITER Temperature 36 ??C (96.8 ??F) 03/17/2018 9:18 AM ROOM SERVICE WAITER Respiratory Rate 14 03/17/2018 9:18 AM ROOM SERVICE WAITER Oxygen Saturation 100% 03/17/2018 9:18 AM ROOM SERVICE WAITER Inhaled Oxygen Concentration - - Weight 106.6 kg (235 lb) 03/17/2018 6:25 AM ROOM SERVICE WAITER Height 188 cm (6' 2 ) 03/17/2018 6:25 AM ROOM SERVICE WAITER Body Mass Index 30.17 03/17/2018 6:25 AM ROOM SERVICE WAITER Plan of Treatment Health Maintenance Due Date Last Done Comments Hepatitis C Virus (HCV) Screening 1965 TdaP Immunization 1965 Hepatitis B Immunization (1 of 3 - 19+ 3-dose series) 1983 Cologuard 2014 Immunochemical Fecal Occult Blood 2014 Pneumococcal Immunization (5 0+ years) (1 of 1 - PCV) 2014 Zoster Immunization (1 of 2) 2014 Colonoscopy 03/17/2019 03/17/2018, 10/07/2017 Colorectal Cancer Screening 03/17/2019 PSA Discussion 2019 Influenza Immunization (#1) 2023 12/31/2014 SARS-COV-2 Immunization ( season) 2023 Respiratory Syncytial Virus (RSV) Immunization (Adult) (1 - 1-dose 75+ series) 2039 03/17/2018, 10/07/2017 DTaP/Tdap/Td Immunization Discontinued 2009, 03/11/1998 Meningococcal Immunization (ACWY) Aged Out No longer eligible based on patient's age to complete this topic Rotavirus Immunization Aged Out No lo nger eligible based on patient's age to complete this topic Medical Devices Implanted Type Area Stone Unloader Device Identifier Shelf Expiration Date Model / Serial / Lot Clip 360 Resolution 235cm - [id number] Implanted:Qty: 1 on 03/17/2018 by Donovan Silver, at [facility] IMPLANT Inverted Edge 04/21/2020 [id number] / [id number] / [id number] Clip 360 Resolution 235cm - [id number] Implanted:Qty: 1 on 03/17/2018 by Donovan Silver, at [facility] IMPLANT Inverted Edge 10/15/2020 [id number] / [id number] / [id number] Insurance [facility] Care Teams Detasseler Relationship Specialty Start Date End Date Brian Boyd MD PCP - General Family Medicine 05/01/17
--- OUTSIDE RECORDS SUMMARY | 2024-03-16 06:43 | XMS_ITS | Encounter Summary ---
Author Organization [facility] Address [address] [place] [place] [address] Care Team Providers Care Radon Inspector Name Role Phone Unavailable Primary Care Provider Unavailabl e Encounter Details Date Type Department Care Team (Late st Contact Info) Description 08/28/[address] [facility] [address] [place] [address] Kingsley Rabago MD [address] [place] [address] Social History Tobacco Use Types Packs/Day Years Used Date Smoking Tobacco: Never Assessed Sex and Gender Information Value Date Recorded Sex Assigned at Not on file Gender Identity Not on file Sexual Orientation Not on file documented as of this encounter Plan of Treatment Not on file documented as of this encounter Procedures Procedure Name Priority Date/Time Associated Diagnosis Comments DERMATOPATHOLOGY Routine 08/28/2021 12:0 0 AM CDT documented in this encounter Results * DERMATOPATHOLOGY (08/28/2021 12:00 AM CDT) Case Report Dermatopathology Report ? Case: [id number] ? Authorizing Provider: ??Kingsley Rabago MD ?Collected: ? 08/28/2021 12:00 AM ? Ordering Location: ? [facility] ?Received: ?08/28/2021 03:44 PM ? Pathologist: ? Sahra Johnson, ? MD ? Specimen: ?Skin, right FA ? 2 5:08 PM CDT DERMATOPATHOLOGY LABORATORY Final Diagnosis Specimen A. 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 Path # [id number]. 2 5:08 PM T DERMATOPATHOLOGY LABORATORY Gross Description Specimen A: Received is one formalin filled container labeled with the patient's name and designated right FA. The specimen consists of a shave biopsy measuring [id number]. Jar 0. 2 5:08 PM T DERMATOPATHOLOGY LABORATORY Microscopic Description Specimen A. SKIN, right FA: Sections show maturational disarray and nuclear pleomorphism of keratinocytes extending throughout the full thickness of the specimen. There is focal neutrophilic parakeratosis. The base of this lesion is not visualized. Tissue Gram stain highlights bacterial cocci in the stratum corneum. Grocott's methenamine silver (GMS) is negative for fungal in the sections examined. Additional deeper sections were obtained and reviewed. COMMENT: The histological differential diagnosis includes an irritated and inflamed benign keratosis, an actinic keratosis, and squamous cell carcinoma with secondary impetiginization or less likely epidermal hyperplasia with an underlying deeper dermal infection. Repeat deeper biopsy is recommended if there is persistent clinical concern for malignancy or infection. 2 5:08 PM CDT DERMATOPATHOLOGY LABORATORY Disclaimer An external and internal positive and negative controls are appropriate for the histochemical, immunohistochemical and immunofluorescence stain(s) in this case (if any), except where stated explicitly. The performance characteristics of the stain(s) cited in this report were developed and its performance characteristic determined by the Dermatopathology Laboratory at [facility], directed by Dr. Sean Jay. These tests need not be, and therefore are not, approved by the [place] Food and Drug Administration. The tests are used for clinical purposes. Billing Codes Specimen Charges Stain Charges 30358 1 [id number] [id number] 1 1 2 5:08 PM CDT DERMATOPATHOLOGY LABORATORY Embedded Images 2 5:08 PM CDT DERMATOPATHOLOGY LABORATORY Pathology/Cytolog y TISSUE SPECIMEN FROM SKIN / Unknown 08/28/2021 08/28/2021 3:44 PM CDT Kingsley Rabago MD LAB - PATHOLOGY/CYTO LOGY ORDERABLES DERMATOPATHOLOGY LABORATORY [facility] - Department of Dermatology [address], [address] [phone] documented in this encounter Visit Diagnoses Not on filedocumented in this encounter
--- OUTSIDE RECORDS SUMMARY | 2024-03-16 06:43 | XMS_ITS | Clinical Summary ---
Author Organization [facility] Address [address] [place] [address] Phone Care Team Providers Care Director Perioperative Name Role Phone Chirag Munroe MD Primary Care Provider [phone] Allergies No known active allergies Medications Medication Sig Dispensed Refills Start Date End Date Status aspirin (ECOTRIN EC) 81 mg Tablet, Delayed Release (E.C.) Take 81 mg by mouth daily. Active Active Problems Problem Noted Date Diagnosed Date Benign hypertension 07/10/2021 Palpitations 07/10/2021 Tobacco use 05/21/2016 Precordial pain 05/21/2016 Dizzy 05/21/2016 Chest pain Family History Medical History Relation Name Comments No Known Problems Father No Known Problems Mother No Known Problems Sister Relation Name Status Comments Father Alive Mother Alive Sister Alive Social History Tobacco Use Types Packs/Day Years Used Date Smoking Tobacco: Former Cigarettes Smokeless Tobacco: Current Chew Tobacco Cessation:Ready to Q uit: No; Counseling Given: No Alcohol Use Standard Drinks/Week Comments No 0 (1 standard drink = 0.6 oz pur e alcohol) Sex and Gender Information Value Date Recorded Sex Assigned at Not on file Gender Identity Not on file Sexual Orientation Not on file Last Filed Vital Signs Vital Sign Reading Time Taken Comments Blood Pressure 127/83 07/11/2021 1:10 PM CDT Pulse 71 07/11/2021 1:10 PM CDT Temperature 36.9 ??C (98.5 ??F) 07/11/2021 1:10 PM CD T Respiratory Rate 18 07/11/2021 1:10 PM CDT Oxygen Saturation 100% 07/11/2021 1:10 PM CDT Inhaled Oxygen Concentration - - Weight 109.8 kg (242 lb) 07/10/2021 4:35 PM CDT Height 182.9 cm (6') 07/10/2021 4:35 PM CDT Body Mass Index 32.82 07/10/2021 4:35 PM CDT Plan of Treatment Health Maintenance Due Date Last Done Comments COLORECTAL SCREENING 2009 Colorectal Cancer Screening 2009 FIT-DNA Q 3 years 2009 FIT/FOBT Q 1 year 2009 Flex Sig/CT Colonography Q 5 years 2009 ZOSTER VACCINE (1 of 2) 2014 DTAP/TDAP/TD VACCINES (2 - Td or Tdap) 12/16/2019 12/15/2009 INFLUENZA VACCINE (#1) 2023 2, 01/17/2011, 01/11/2011, Additional history exists HEPATITIS B VACCINES Completed 04/14/2006, 06/25/2005, 03/21/2004 PNEUMOCOCCAL VACCINE 0-64 YEARS Aged Out No longer eligible based on patient's age to complete this topic Advance Directives For more information, please contact: [phone] * Full Code (Latest Code Status on File) Date Activated Date Inactivated Comments 07/10/2021 5:47 PM 07/11/2021 7:30 PM * Full Code Date Activated Date Inactivated Comments 05/21/2016 8:49 PM 05/22/2016 6:29 PM Care Teams Director Perioperative Relationship Specialty Start Date End Date Chirag Munroe MD [address] [place] [phone] PCP - General Family Practice 05/21/16
--- OUTSIDE RECORDS SUMMARY | 2024-03-16 06:43 | XMS_ITS | Clinical Summary ---
Author Organization [facility] Address [address] [place] [address] Care Team Providers Care Esthetician Spa Name Role Phone Unavailable Primary Care Provider Unavailabl e Source Comments [facility],non-owned Affiliates and Associated Physician Practices is amultiple site organization consisting of ambulatory clinics and hospital sitesin [place], [place], [place] and [place]. This disclosure is being madepursuant to the Care Everywhere program and may not contain all information available regarding this patient. Last updated 17.[facility] Social History Tobacco Use Types Packs/Day Years Used Date Smoking Tobacco: Never Assessed Sex and Gender Information Value Date Recorded Sex Assigned at Not on file Gender Identity Not on file Sexual Orientation Not on file Plan of Treatment Health Maintenance Due Date Last Done Comments COLOGUARD (AGES 45-75) - COL ON CA SCREENING 1964 COLON MONITORING 1964 COLONOSCOPY - COLON CA SCREENING 1964 CT COLONOGRAPHY - COLON CA SCREENING 1964 Colorectal Cancer Screening 1964 FIT - COLON CA SCREENING 1964 FLEX SIG - COLON CA SCREENING 1964 LIPID TESTING 1964 HIV SCREENING 1979 HEPATITIS C SCREENING 04/22/1982 DTAP/TDAP/TD VACCINES (1 - Tdap) 1983 HEPATITIS B VACCINE (1 of 3 - 19+ 3-dose series) 1983 ZOSTER VACCINE (1 of 2) 2014 DEPRESSION SCREENING 03/11/2023 COVID-19 VACCINE ( - 2023-2 5 season) 2023 INFLUENZA VACCINE (#1) 2023 HIB VACCINE Aged Out No longer eligi ble based on patient's age to complete this topic HPV VACCINE Aged Out No longer eligi ble based on patient's age to complete this topic MENINGOCOCCAL VACCINE Aged Out No kaden yissel eligible based on patient's age to complete this topic PNEUMOCOCCAL VACCINE Aged Out No long er eligible based on patient's age to complete this topic
--- OUTSIDE RECORDS SUMMARY | 2024-03-16 06:43 | XMS_ITS | Patient Health Summary ---
Author Organization [facility] Address [address] [place] [address] Care Team Providers Care Pinsetter Mechanic Automatic Name Role Phone Unavailable Primary Care Provider Unavailabl e Note from [facility],non-owned Affiliates and Associated Physician Practices is amultiple site organization consisting of ambulatory clinics and hospital sitesin [place], [place], [place] and [place]. This disclosure is being madepursuant to the Care Everywhere program and may not contain all information available regarding this patient. Last updated 17.[facility] Social History Tobacco Use Types Packs/Day Years Used Date Smoking Tobacco: Never Assessed Sex and Gender Information Value Date Recorded Sex Assigned at Not on file Gender Identity Not on file Sexual Orientation Not on file Procedures * DERMATOPATHOLOGY(Performed 08/28/2021) Results * DERMATOPATHOLOGY (08/28/2021 12:00 AM CDT) Case Report Dermatopathology Report ? Case: [id number] ? Authorizing Provider: ??Kingsley Rabago MD ?Collected: ? 08/28/2021 12:00 AM ? Ordering Location: ? [facility] ?Received: ?08/28/2021 03:44 PM [...] Clinical History Infection vs other. Path # [id number]. 2 5:08 PM T DERMATOPATHOLOGY LABORATORY Gross Description Specimen A: Received is one formalin filled container labeled with the patient's name and designated right FA. The specimen consists of a shave biopsy measuring [id number]. Jar 0. 2 5:08 PM CDT DERMATOPATHOLOGY LABORATORY Microscopic Description Specimen A. SKIN, [...] determined by the Dermatopathology Laboratory at [facility], directed by Dr. Sean Jay. These tests need not be, and therefore are not, approved by the [place] Food and Drug Administration. The tests are used for clinical purposes. Billing Codes Specimen Charges Stain Charges 02949 1 [id number] 1 1 2 5:08 PM CDT DERMATOPATHOLOGY LABORATORY Embedded Images 2 5:08 PM CDT DERMATOPATHOLOGY LABORATORY Pathology/Cytolog y TISSUE SPECIMEN FROM SKIN / Unknown 08/28/2021 08/28/2021 3:44 PM CDT Kingsley Rabago MD LAB - PATHOLOGY/CYTO LOGY ORDERABLES DERMATOPATHOLOGY LABORATORY [facility] - Department of Dermatology [facility] [address] [place] [address], [address] [phone]
--- OUTSIDE RECORDS SUMMARY | 2024-03-16 06:43 | XMS_ITS | Referral Summary ---
Author Organization [facility] Address [address] [place] [address] Care Team Providers Care Engineering Intern Name Role Phone Unavailable Primary Care Provider Unavailabl e Source Comments [facility],non-owned Affiliates and Associated Physician Practices is amultiple site organization consisting of ambulatory clinics and hospital sitesin [place], [place], [place] and [place]. This disclosure is being madepursuant to the Care Everywhere program and may not contain all information available regarding this patient. Last updated 17.[facility] Social History Tobacco Use Types Packs/Day Years Used Date Smoking Tobacco: Never Assessed Sex and Gender Information Value Date Recorded Sex Assigned at Not on file Gender Identity Not on file Sexual Orientation Not on file Plan of Treatment Not on file
--- OUTSIDE RECORDS SUMMARY | 2024-03-16 06:44 | XMS_ITS | Encounter Summary ---
Author Organization [facility] Address [address] Attn: Epic Prelude ADT JESSIE GRAY [address] Care Team Providers Care Paint Supervisor Name Role Phone Chirag Munroe MD Primary Care Provider Encounter Details Date Type Department Care Team (Latest Contact Info) Description 07/10/2021 Travel Social History Tobacco Use Types Packs/Day Years Used Date Smoking Tobacco: Former Cigarettes Smokeless Tobacco: Current Chew Alcohol Use Standard Drinks/Week Comments No 0 (1 standard drink = 0.6 oz pur e alcohol) Sex and Gender Information Value Date Recorded Sex Assigned at Not on file Gender Identity Not on file Sexual Orientation Not on file COVID-19 Exposure Response Date Recorded In the last 10 days, have yo u been in contact with someone who was confirmed or suspected to have Coronavirus/COVID-19? No / Unsure 07/10/2021 1:55 PM CDT documented as of this encounter Plan of Treatment Not on file documented as of this encounter Visit Diagnoses Not on filedocumented in this encounter Care Teams Paint Supervisor Relationship Specialty Start Date End Date Chirag Munroe MD [address] [place] [phone] PCP - General Family Practice 05/21/16 documented as of this encounter
--- OUTSIDE RECORDS SUMMARY | 2024-03-16 06:44 | XMS_ITS | Encounter Summary ---
Author Organization [employer] Address 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 +SOB. Denies n/v. Pt A&O x4. -diaphoresis. EMS gave 4 baby aspirin and 1 SL nitro which resolved pt's pain. * Auth/Cert Specialty Diagnoses / Procedures Referred By Adamaris fernandez Referred To Contact Emergency [facility] Emergency Dept [address] [place] [address] Referral ID Status Reason Start Date Expiration Date Visits Re quested Visits Authorized [id number] 1 1 Encounter Details Date Type Department Care Team (Late st Contact Info) Description 05/21/2016 4:38 PM CDT - 05/22/2016 4:29 PM CDT Emergency [facility] Cardiac Decision Unit [address] [place] [address] Dimitrios Cast MD [address] [facility] [place] [address] Anna Merrill MD [address] [facility] [address] [address] Von Villalba MD [address] [place] [address] [place] [address] Tobacco use Discharge Disposition: Home or Self Care Social History Tobacco Use Types Packs/Day Years Used Date Smoking Tobacco: Every Day Cigarettes Alcohol Use Standard Drinks/Week Comments No 0 (1 standard drink = 0.6 oz pur e alcohol) Sex and Gender Information Value Date Recorded Sex Assigned at Not on file Gender Identity Not on file Sexual Orientation Not on file documented as of this encounter Last Filed Vital Signs Vital Sign Reading Time Taken Comments Blood Pressure 129/80 05/22/2016 11:12 AM CDT Pulse 71 05/22/2016 11:12 AM CDT Temperature 36.4 ??C (97.6 ??F) 05/22/2016 11:12 AM C DT Respiratory Rate 18 05/22/2016 11:12 AM CDT Oxygen Saturation 98% 05/22/2016 11:12 AM CDT Inhaled Oxygen Concentration - - Weight 109.1 kg (240 lb 8 oz) 05/22/2016 4:07 AM CDT Height 188 cm (6' 2 ) 05/21/2016 7:45 PM CDT Body Mass Index 30.88 05/21/2016 7:45 PM CDT documented in this encounter Discharge Instructions * Discharge Instructions* Von Villalba MD - 05/22/2016 11:57 AM CDT Your discharging physician is Von Villalba MD and may be reached at for any questions or concerns until you see your doctor. FOLLOW-UP Follow up with Chirag Munroe MD in 1 week(s). Prescriptions given? No Heart Patients: Weigh yourself everyday at the same time, with the same amount of clothing and after you have emptied your bladder. Keep a log of your daily weights and bring them with you to your physician appointments. Call your physician (*) if you have a weight gain of 3 pounds in one day (or 5pounds in 2 or more days) or (*) if you have increased shortness of breath or (*) if you have swelling in your feet, belly or legs. <<<Call 911 or go to the nearest emergency room if you have increased shortness of breath or chest pain or discomfort that is not relieved by nitroglycerin. Smoking Exposure: [facility] encourages all patients to decrease risks associated with smoking and second hand smoke exposure. If you smoke you are advised to quit. Ask your health care provider for advice if you need assistance to stop smoking. Avoid second-hand smoke exposure and do not let people smoke in your home. Please call [phone], our pulmonary rehabilitation department, to learn more about options to reduce your risks. ACTIVITY Your activity level is: increase activity as tolerated and no smoking. DIET Your diet is: DIET NPO Strict documented in this encounter Medications at Time of Discharge Medication Sig Dispensed Refills Start Date End Date aspirin (ECOTRIN EC) 81 mg Tablet, Delayed Release (E.C.) Take 81 mg by mouth daily. documented as of this encounter Progress Notes * Pushpa Correa RN - 05/22/2016 2:46 PM CDT Patient ECHO Stress came back stable. Discharged to home with follow up appointment made. Denies pain, except chronic back and neck pain. Able to walk out with RN to awaiting family members for discharge transportation. IV removed. * Avril Montez PA - 05/22/2016 3:00 AM CDT [facility] eHospitalist Cross Cover Call Called for: No pulmonary embolism on CTA chest. Incidental finding of pulmonary nodules. Last Recorded Vitals: Visit Vitals ??? BP 125/86 (BP Location: Left arm, Patient Position (BP): Standing) ??? Pulse 79 ??? Temp 97.6 ??F (36.4 ??C) (Oral) ??? Resp 18 ??? Ht 6' 2 (1.88 m) ??? Wt 108.3 kg (238 lb 11.2 oz) ??? SpO2 99% ??? BMI 30.65 kg/m2 Documentation/Intervention/Outcome: Patient will need education on follow up. Communicated to day hospitalist. CHUCK Shrestha Try our new night ticket system for eHospitalist calls. Submit an eTicket * Avril Montez PA - 05/22/2016 1:52 AM CDT [facility] eHospitalist Cross Cover Call Called for: Positive D-dimer in the setting of acute chest pain and shortness of breath. Reported LBBB that was new on the EKG in the ambulance. Repeat EK normal. LBBB is reportedly old. Troponins were negative x 2. Last Recorded Vitals: Visit Vitals ??? BP 125/86 (BP Location: Left arm, Patient Position (BP): Standing) ??? Pulse 79 ??? Temp 97.6 ??F (36.4 ??C) (Oral) ??? Resp 18 ??? Ht 6' 2 (1.88 m) ??? Wt 108.3 kg (238 lb 11.2 oz) ??? SpO2 99% ??? BMI 30.65 kg/m2 Documentation/Intervention/Outcome: Positive D-dimer with above symptoms. Will order CTA chest now to rule out PE. CHUCK Shrestha Try our new night ticket system for eHospitalist calls. Submit an eTicket documented in this encounter H&P Notes * Anna Merrill MD - 05/21/2016 8:27 PM CDT [facility] Hospitalist Admission H & P Patient Name: Manish Campbell Primary Care Doctor: Chirag Munroe MD Date of Admission: 05/21/2016 Date of Service: 05/21/2016 Chief Complaint: CP HPI: 51 yo male with PMH of HTN, LBBB, Back pain. Presents with c/c of CP. 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 Told he had an new-onset LBBB at the time. Today he woke up and felt very generally weak, lightheaded, dizzy, completely lacking energy. Reports also started having CP- R upper chest , non radiating, felt like pressure , had palpitations, haddiaphoresis and SOB, had nausea , no vomiting. No recent cough , no mucus . In Ambulance - told to have LBBB today . Past Medical History: Past Medical History Diagnosis Date ??? Chronic neck and back pain ??? HTN (hypertension) ??? Left bundle branch block Past Surgical History: Past Surgical History Procedure Laterality Date ??? Pt denies relevant surgical history Current Medications: Prescriptions Prior to Admission Medication Sig Dispense Refill Last Dose ??? aspirin (ECOTRIN EC) 81 mg Tablet, Delayed Release (E.C.) Take 81 mg by mouth daily. 05/21/2016 at 1100 ??? minocycline (MINOCIN) 100 mg capsule Take 100 mg by mouth daily. 05/21/2016 at 1100 Medication Allergies:No Known Allergies Family History: no hx of Heart disease , no hx of DM Social History: Social History Substance Use Topics ??? Smoking status: Current Every Day Smoker Years: 3.00 ??? Smokeless tobacco: Not on file ??? Alcohol use No Review of Systems: GEN: No weight loss or weight gain, energy level decreased Skin: No rashes or eruptions HEENT: no sinus complaints Lungs: No cough, shortness of breath, or wheezing, no sputum Cardiac: Had CP, no PND, no orthopnea, no LE swelling GI: No n/v, no abdominal pain or change in bowel habits : No dysuria , no frequency , no urgency Musculoskeletal: No back pain, neck pain or joint pain or swelling, no myalgias NEURO: no prior cva or seizure , no headaches, no weaknesses on one side or another,no numbness, notingling Heme/Onc: no easy bruising, no bleeding, no melena, no hematochesia All other ROS reviewed and are negative Physical Exam: Patient Vitals for the past 8 hrs: BP Temp Temp src Pulse Resp SpO2 Height Weight 05/21/16 1945 (!) 127/90 97.6 ??F (36.4 ??C) Oral 64 18 99 % 6' 2 (1.88 m) 108.3 kg (238 lb 11.2 oz) 05/21/16 1934 120/88 - - - 16 99 % - - 05/21/16 1800 127/86 - - 81 19 97 % - - 05/21/16 1730 (!) 128/92 - - 89 21 96 % - - 05/21/16 1700 (!) 136/114 - - 90 19 97 % - - 05/21/16 1644 - 98.2 ??F (36.8 ??C) Oral - 16 98 % 6' (1.829 m) 100.2 kg (221 lb) General: Alert, cooperative, no distress, appears stated age. Head: Normocephalic, without obvious abnormality, atraumatic. Eyes: Conjunctivae/corneas clear. Throat: Lips, mucosa, and tongue normal. no erythema, no exudates. Neck: Supple, symmetrical, trachea midline, no JVD. Back: Symmetric, no curvature. ROM normal. Lungs: Clear to auscultation bilaterally.no wheezes,no crackles Chest wall: No tenderness or deformity. Heart: Regular rate and rhythm, S1, S2 normal . Abdomen: Soft, non-tender. Bowel sounds normal. Extremities: Extremities normal, atraumatic, no cyanosis or edema. Skin: Skin color, texture, turgor normal. No rashes or lesions. Neurologic: CNII-XII intact. Grossly nonfocal . Data Base: Results for orders placed or performed during the hospital encounter of 05/21/16 (from the past 24 hour(s)) CBC WITH DIFFERENTIAL Result Value Ref Range WBC 7.2 4.0 - 9.8 K/uL RBC 5.36 4.50 - 5.40 M/uL HEMOGLOBIN 16.0 13.6 - 16.5 g/dL HEMATOCRIT 47.9 40.0 - 48.0 % MCV 89.4 82.0 - 99.0 fL MCH 29.9 27.2 - 32.6 pg MCHC 33.4 31.5 - 35.5 g/dL RDW 11.9 11.5 - 14.5 % RDW-STDEV 38.5 37.1 - 48.7 fL PLATELETS 231 140 - 350 K/uL MPV 10.6 9.3 - 12.4 fL NEUTROPHILS 68 % LYMPHOCYTES 23 % MONOCYTES 8 % EOSINOPHILS 0 % BASOPHILS 1 % IMMATURE GRANULOCYTES 0 % NEUTROPHIL ABSOLUTE 4.86 1.90 - 7.00 K/uL LYMPHOCYTE ABSOLUTE 1.61 0.70 - 4.50 K/uL MONOCYTE ABSOLUTE 0.60 0.10 - 1.30 K/uL EOSINOPHIL ABSOLUTE 0.03 0.00 - 0.70 K/uL BASOPHILS ABSOLUTE 0.05 0.00 - 0.20 K/uL IMMATURE GRANULOCYTES ABSOLUTE 0.02 0.00 - 0.03 K/uL COMPREHENSIVE METABOLIC PANEL Result Value Ref Range SODIUM 141 136 - 145 mmol/L POTASSIUM 3.7 3.5 - 5.0 mmol/L CHLORIDE 102 98 - 107 mmol/L CO2 28 22 - 29 mmol/L CALCIUM 9.6 8.6 - 10.2 mg/dL BUN 12 6 - 20 mg/dL CREATININE 1.10 0.67 - 1.17 mg/dL GLUCOSE 103 (H) 74 - 99 mg/dL TOTAL PROTEIN 6.9 6.7 - 8.6 g/dL ALBUMIN 4.2 3.5 - 5.2 g/dL BILIRUBIN TOTAL 0.3 0.3 - 1.2 mg/dL ALKALINE PHOSPHATASE 44 40 - 129 U/L AST 19 <41 U/L ALT 23 <42 U/L GFR >60 >=60 mL/min/1.73 sq meter GFR, >60 >=60 mL/min/1.73 sq meter ANION GAP 11 8 - 16 mmol/L TROPONIN Result Value Ref Range TROPONIN T <0.01 <0.04 ng/mL I have personally reviewed the ED notes, the admission labs, imaging studies- CXR no infiltrates , EKG - Sr , rate 92. I have reviewed previous hospital, office notes and previous laboratory data and imaging studies, procedure notes also that were relevant to this encounter. Assessment&Plan: 1. Chest pain - has hx of LBBB, had ischemic work up a year ago. Plan : Rickey x 2 , tele, stress testat am , d-dimer, I asked cardiology to see too , may need cardiac event monitor at D/C 2. Dizzy/Lightheaded/Overall Weakness- orthostatic VS, r/o arrhythmia , check TSH too 3. 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 Lali MONTERO Manish Campbell is a 51 y.o. male with PMH significant for HTN and LBBB presenting with chest pain. Pt was in his usual state of health until yesterday morning. He woke up just generally feeling poorly with poor appetite, mild lightheadedness. He went to work and felt a knot-like sensation in the right side of his chest without radiation. He was not truly dyspneic, but felt during this time like he could not take deep full breaths. He had some nausea without vomiting. He reports the symptoms surpassing his comfort level so he called an ambulance. Pt reports very similar symptoms leading to hospital evaluation one year ago at which time he had a negative stress test and newly discovered LBBB. At that time as well as presently, he reports significant stressors at home and some anxiety. He denies HTN, DM2, HLD. He smokes 1 cigarette a day. Doesn't drink alcohol or use drugs. No family history of coronary disease. An ambulance telemetry strip was read initially as LBBB, per pt he was told about this last year. Formal EKG in ED was normal. He was given aspirin and admitted for further observation and evaluation. He has had 3 negative troponins at this point. D-dimer was checked and was borderline elevated, soCTA chest was checked, which was negative for PE, but showed a couple small pulmonary nodules. He is chest pain free at this time. Reports just wanting reassurance that he doesn't have a seriousheart issue. He feels that his symptoms are probably related to stress. Past Medical History Diagnosis Date ??? Chronic neck and back pain ??? HTN (hypertension) ??? Left bundle branch block Past Surgical History Procedure Laterality Date ??? Pt denies relevant surgical history Patient Active Problem List Diagnosis Code ??? Tobacco use Z72.0 ??? Precordial pain R07.2 ??? Dizzy R42 ??? Chest pain R07.9 Social History Social History ??? Marital status: Spouse name: N/A ??? Number of children: N/A ??? Years of education: N/A Occupational History ??? Not on file. Social History Main Topics ??? Smoking status: Current Every Day Smoker Years: 3.00 ??? Smokeless tobacco: Not on file ??? Alcohol use No ??? Drug use: No ??? Sexual activity: Not on file Other Topics Concern ??? Not on file Social History Narrative ??? No narrative on file No family history on file. No Known Allergies Prescriptions Prior to Admission Medication Sig Dispense Refill Last Dose ??? aspirin (ECOTRIN EC) 81 mg Tablet, Delayed Release (E.C.) Take 81 mg by mouth daily. 05/21/2016 at 1100 ??? minocycline (MINOCIN) 100 mg capsule Take 100 mg by mouth daily. 05/21/2016 at 1100 Current Facility-Administered Medications Ordered in Epic Medication Dose Route Frequency Provider Last Rate Last Dose ??? aspirin (ECOTRIN EC) tablet 81 mg 81 mg Oral Daily Anna Merrill MD ??? naloxone (NARCAN) 0.4 mg/mL injection 0.1 mg 0.1 mg IV See Admin Notes Anna Merrill MD ??? docusate sodium (COLACE) capsule 100 mg 100 mg Oral BID Anna Merrill MD 100 mg at05/21/16 2203 ??? magnesium hydroxide (MILK OF MAGNESIA) oral suspension 30 mL 30 mL Oral Daily PRN Anna Merrill MD ??? sodium chloride 0.9% infusion IV Continuous Anna Merrill MD 100 mL/hr at 225290 ??? acetaminophen (TYLENOL) tablet 650 mg 650 mg Oral q 6 hour PRN Anna Chapman MD ??? ondansetron (ZOFRAN) 4 mg/2 mL injection 4 mg 4 mg IV q 6 hour PRN Anna Merrill MD ??? enoxaparin (LOVENOX) injection 40 mg 40 mg subCUT q 24 hour Anna Chapman MD 40 mgat 05/21/162202 ??? ondansetron (ZOFRAN) 4 mg/2 mL injection 4 mg 4 mg IV q 6 hour PRN Anna Merrill MD ROS Constitutional: no weight loss, fever, night sweats Eyes: negative for visual disturbance and irritation ENT: Denies: sore throat, nasal congestion, nasal discharge, tinnitus Pulmonary: See HPI Cardio: See HPI GI: Normal BM's, denies hematochezia, melena or pain. : negative for frequency and dysuria Musculoskeletal: negative for myalgias and arthralgias Neuro: negative for headaches, paresthesia and gait problems Periph Vasc: negative for claudication Heme/Onc: negative for easy bleeding or bruising Psych: positive for anxiety PHYSICAL EXAM Visit Vitals ??? BP 105/64 (BP Location: Left arm, Patient Position (BP): Supine) ??? Pulse 66 ??? Temp 97.6 ??F (36.4 ??C) (Oral) ??? Resp 16 ??? Ht 6' 2 (1.88 m) ??? Wt 109.1 kg (240 lb 8 oz) ??? SpO2 97% ??? BMI 30.88 kg/m2 General: alert, cooperative, no distress Skin: warm, dry, no lesions or rash HEENT: PERRLA, EOMI, Sclera clear, anicteric and Oropharynx clear, no lesions. Neck: supple, symmetrical, trachea midline, no carotid bruit and no JVD Chest/Lungs: clear to auscultation bilaterally Cardiovascular: regular rate and rhythm, S1, S2 normal, no murmur, click, rub or gallop Abdominal: soft, non-tender; bowel sounds normal; no masses, no organomegaly Extremities: extremities normal, atraumatic, no cyanosis or edema Neuro: oriented, grossly non-focal Pulses: peripheral pulses symmetrical, present 2+ Psych: normal mood, somewhat flat affect DATA : LABS:: Results for orders placed or performed during the hospital encounter of 05/21/16 (from the past 24 hour(s)) CBC WITH DIFFERENTIAL Result Value Ref Range WBC 7.2 4.0 - 9.8 K/uL RBC 5.36 4.50 - 5.40 M/uL HEMOGLOBIN 16.0 13.6 - 16.5 g/dL HEMATOCRIT 47.9 40.0 - 48.0 % MCV 89.4 82.0 - 99.0 fL MCH 29.9 27.2 - 32.6 pg MCHC 33.4 31.5 - 35.5 g/dL RDW 11.9 11.5 - 14.5 % RDW-STDEV 38.5 37.1 - 48.7 fL PLATELETS 231 140 - 350 K/uL MPV 10.6 9.3 - 12.4 fL NEUTROPHILS 68 % LYMPHOCYTES 23 % MONOCYTES 8 % EOSINOPHILS 0 % BASOPHILS 1 % IMMATURE GRANULOCYTES 0 % NEUTROPHIL ABSOLUTE 4.86 1.90 - 7.00 K/uL LYMPHOCYTE ABSOLUTE 1.61 0.70 - 4.50 K/uL MONOCYTE ABSOLUTE 0.60 0.10 - 1.30 K/uL EOSINOPHIL ABSOLUTE 0.03 0.00 - 0.70 K/uL BASOPHILS ABSOLUTE 0.05 0.00 - 0.20 K/uL IMMATURE GRANULOCYTES ABSOLUTE 0.02 0.00 - 0.03 K/uL COMPREHENSIVE METABOLIC PANEL Result Value Ref Range SODIUM 141 136 - 145 mmol/L POTASSIUM 3.7 3.5 - 5.0 mmol/L CHLORIDE 102 98 - 107 mmol/L CO2 28 22 - 29 mmol/L CALCIUM 9.6 8.6 - 10.2 mg/dL BUN 12 6 - 20 mg/dL CREATININE 1.10 0.67 - 1.17 mg/dL GLUCOSE 103 (H) 74 - 99 mg/dL TOTAL PROTEIN 6.9 6.7 - 8.6 g/dL ALBUMIN 4.2 3.5 - 5.2 g/dL BILIRUBIN TOTAL 0.3 0.3 - 1.2 mg/dL ALKALINE PHOSPHATASE 44 40 - 129 U/L AST 19 <41 U/L ALT 23 <42 U/L GFR >60 >=60 mL/min/1.73 sq meter GFR, >60 >=60 mL/min/1.73 sq meter ANION GAP 11 8 - 16 mmol/L TROPONIN Result Value Ref Range TROPONIN T <0.01 <0.04 ng/mL D-DIMER Result Value Ref Range D-DIMER QUANT 0.46 (H) <0.42 ug/mL FEU TROPONIN Result Value Ref Range TROPONIN T <0.01 <0.04 ng/mL CBC WITHOUT DIFFERENTIAL Result Value Ref Range WBC 6.3 4.0 - 9.8 K/uL RBC 4.90 4.50 - 5.40 M/uL HEMOGLOBIN 14.5 13.6 - 16.5 g/dL HEMATOCRIT 43.6 40.0 - 48.0 % MCV 89.0 82.0 - 99.0 fL MCH 29.6 27.2 - 32.6 pg MCHC 33.3 31.5 - 35.5 g/dL PLATELETS 203 140 - 350 K/uL MPV 10.4 9.3 - 12.4 fL RDW 11.9 11.5 - 14.5 % RDW-STDEV 38.5 37.1 - 48.7 fL TROPONIN Result Value Ref Range TROPONIN T <0.01 <0.04 ng/mL IMAGING STUDIES: Xr Chest Pa Or Ap Result Date: 05/21/2016 PORTABLE CHEST, 05/21/2016 5:27 PM HISTORY: Chest pain. FINDINGS: There are no comparison films. Thelungs are fully inflated and asymmetrically aerated. No focal consolidation or effusion is identified. The heart and mediastinum are within normal limits. IMPRESSION: Negative PA chest. DICTATION LOCATION: Location 1 - [facility] Cta Chest W Wo Contrast Result Date: 05/22/2016 CTA CHEST W WO CONTRAST DATE: 05/22/2016 2:45 AM CLINICAL INFORMATION: Chest pain COMPARISON: Chest x-ray 05/21/2016 PROCEDURE: Axial images were obtained from the thoracic inlet through the upper abdomen following the administration of intravenous contrast. Multiplanar reformatted images were reviewed. FINDINGS: LUNGS/AIRWAYS/PLEURA: Bibasilar dependent atelectasis. Right apical calcified granuloma. 4mm right middle lobe nodule (series 5 image 70), 4 mm subpleural left upper lobe nodule (image 76). No endotracheal or endobronchial lesions. No pleural abnormalities. HEART/VESSELS: No pulmonary embolism. Heart size is normal. No pericardial abnormality. Aorta and great vessels unremarkable. MED IASTINUM AND JOJO: Within normal limits. CHEST WALL AND LOWER NECK: Within normal limits. VISUALIZED ABDOMEN: Within normal limits. BONES: Within normal limits. IMPRESSION: No pulmonary embolism. Right middle and left upper lobe pulmonary nodules measuring up to 4 mm, for which follow-up CT chest is recommended in 6- 12 months. DICTATION LOCATION: Location 1,[facility] EKG: NSR, rate of 92, normal axis, no Q-waves, normal QRS morphology, no ST elevation depression, no T-wave changes concerning for ischemia ECHO: from stress echo (baseline) LV size was normal. LV global systolic function was normal. The estimated LV ejection fraction was 55%. Normal wall motion; no LV regional wall motion abnormalities. STRESS TEST: 05/22/16 SUMMARY: - Stress: 5:30 min. 7.0 METs. Functional capacity was normal. - Stress ECG conclusions: A rate related left bundle branch block developed during exercise. ECG assessment for myocardial ischemia was indeterminate due to LBBB. - Stress echo: There was no echocardiographic evidence for stress-induced ischemia. - Baseline: LV global systolic function was normal. The estimated LV ejection fraction was 55%. ?? Impressions: Normal Stress Echocardiogram. Rate related LBBB aberrancy was present during treadmill exercise. CARDIAC CATH: NA ASSESSMENT: 1) Chest pain - low suspicion for ischemic coronary disease as etiology for pain, his constellation of symptoms seems more consistent with anxiety, negative stress test highly reassuring 2) LBBB - intermittent, reproduced by stress test 3) HTN PLAN: 1) No additional cardiac workup at this time 2) No need for event monitor at discharge 3) F/U with established cardiology for LBBB, no interventions or medicines needed at this time Pt seen and discussed with Dr. Daniels. Mark Lee MD, PGY-3 Pager: [phone] Addendum Chart reviewed and case discussed with Dr. Lee. I agree with his assessment and recommendations. He has a rate dependent LBBB. No further work up indicated at this time. Aleksander Daniels MD No charge documented in this encounter ED Notes * Brii Daugherty RN - 05/21/2016 6:35 PM CDT Report given to Niurka ARROYO for transfer of care. Waiting for lab results before transferred. * Pushpa Ford RN - 05/21/2016 6:05 PM CDT Pt reports no current chest pain. Pt c/o of feeling drained and tight muscles in his neck and back. Pt resting on stretcher. Speaking in full complete sentences. A&O x4. Pt aware of POC. * Ranjana Gil RN - 05/21/2016 5:[address] Cast to bedside to update pt on POC. Pt given ASA en route by EMS so dose here held. Pt refuses nitro paste. Dr. Cast aware. * Pushpa Ford RN - 05/21/2016 5:04 PM CDT Pt had pressure in his right shoulder starting around noon. Throughout the day the pressure intensified and reported SOB. EMS gave 4 baby aspirin and 1 SL nitro en route and pain resolved. Pt A&Ox4. Speaking in full complete sentences. * Otis Darling RN - 05/21/2016 4:38 PM CDT Bed: 06 Expected date: 05/21/16 Expected time: 4:34 PM Means of arrival: Arvind Haynes Comments: CODE STEMI 51M, CP all day, none at this time after 324ASA and 1 nitro. LBBB and elevation in v1-4. * Dimitrios Cast MD - 05/21/2016 4:38 PM CDT HISTORY OF PRESENT ILLNESS Manish Campbell, a 51 y.o. male presents to the ED with a Chief Complaint of Chest Pain Subjective HPI Comments: 4:37 PM: Manish Campbell is a 51 y.o. male with a history of HTN and LBBB who presents to the Emergency Department via EMS as a Code STEMI. The patient reports chest discomfort, described as a pressure sensation, since waking from sleep this morning. He states it really wasn't apain at all. He was given sublingual nitro en route with complete relief of his chest discomfort. He has developed a headache since he received nitro. Denies SOB. He was mildly tachycardic en route,vital signs were otherwise stable. EKG en route with EMS showed LBBB, which was read by the machineas a STEMI. There are no other sx at this time. Physician(s): No primary care provider on file. History provided by: The patient and the EMS personnel Arrived by: EMS Arrived from: Home REVIEW OF SYSTEMS Review of Systems Constitutional: Negative for activity change, appetite change and fatigue. HENT: Negative for nosebleeds. Eyes: Negative for pain and itching. Respiratory: Negative for shortness of breath and wheezing. Cardiovascular: Negative for chest pain, palpitations and leg swelling. (+) Chest discomfort ( pressure ), resolved after nitro Gastrointestinal: Negative for abdominal pain and vomiting. Genitourinary: Negative for dysuria and hematuria. Musculoskeletal: Negative for back pain, myalgias and neck pain. Neurological: Positive for headaches (after receiving nitro). Negative for seizures. Psychiatric/Behavioral: Negative for agitation and confusion. PAST MEDICAL HISTORY REVIEWED MEDICAL: Patient has a past medical history of Chronic neck and back pain; HTN (hypertension); and Left bundle branch block. SURGICAL: Patient has a past surgical history that includes pt denies relevant surgical history. FAMILY: Patient's family history is not on file. SOCIAL: reports that he has been smoking. He has smoked for the past 3.00 years. He does not have any smokeless tobacco history on file. He reports that he does not drink alcohol or use illicit drugs. No history on file. Social History Other Topics Concern ??? Not on file PROBLEM LIST: Patient has Tobacco use; Precordial pain; Dizzy; and Chest pain on his problem list. ALLERGIES Review of patient's allergies indicates no known allergies. HOME MEDICATIONS Discharge Medication List as of 05/22/2016 1:55 PM CONTINUE these medications which have NOT CHANGED Details aspirin (ECOTRIN EC) 81 mg Tablet, Delayed Release (E.C.) Take 81 mg by mouth daily. STOP taking these medications minocycline (MINOCIN) 100 mg capsule Comments: Reason for Stopping: Objective PHYSICAL EXAM INITIAL VS BP: (!) 136/114 (05/21/16 1700), Heart Rate: 88 bpm (03/13/17 1644), Resp: 16 (05/21/161643), Temp: 98.2 ??F (36.8 ??C) (05/21/161643), Temp src: Oral (05/21/161643), SpO2: 98 % (05/21/161643), Height: 6' (182.9 cm) (05/21/161643), Weight: 100.2 kg (221 lb) (05/21/161643), BMI (Calculated): 29.97 (05/21/161643) No LMP for male patient. Physical Exam Constitutional: He is oriented to person, place, and time. He appears well- developed and well-nourished. HENT: Head: Normocephalic and atraumatic. Eyes: Conjunctivae are normal. Pupils are equal, round, and reactive to light. Neck: Normal range of motion. Neck supple. No tracheal deviation present. Cardiovascular: Normal rate, regular rhythm and normal heart sounds. Exam reveals no friction rub. No murmur heard. Pulmonary/Chest: Effort normal and breath sounds normal. No respiratory distress. He has no wheezes. Abdominal: Soft. Bowel sounds are normal. He exhibits no distension and no mass. There is no tenderness. There is no rebound and no guarding. Musculoskeletal: Normal range of motion. He exhibits no tenderness. Neurological: He is alert and oriented to person, place, and time. No cranial nerve deficit. Skin: Skin is warm and dry. No rash noted. Psychiatric: He has a normal mood and affect. His behavior is normal. Nursing note and vitals reviewed. DIAGNOSTICS LAB: Labs this ED Encounter COMPREHENSIVE METABOLIC PANEL - Abnormal Result Value GLUCOSE 103 (*) SODIUM 141 POTASSIUM 3.7 CHLORIDE 102 CO2 28 CALCIUM 9.6 BUN 12 CREATININE 1.10 TOTAL PROTEIN 6.9 ALBUMIN 4.2 BILIRUBIN TOTAL 0.3 ALKALINE PHOSPHATASE 44 AST 19 ALT 23 GFR >60 GFR, >60 ANION GAP 11 TROPONIN - Normal TROPONIN T <0.01 CBC WITH DIFFERENTIAL WBC 7.2 RBC 5.36 HEMOGLOBIN 16.0 HEMATOCRIT 47.9 MCV 89.4 MCH 29.9 MCHC 33.4 RDW 11.9 RDW-STDEV 38.5 PLATELETS 231 MPV 10.6 NEUTROPHILS 68 LYMPHOCYTES 23 MONOCYTES 8 EOSINOPHILS 0 BASOPHILS 1 IMMATURE GRANULOCYTES 0 NEUTROPHIL ABSOLUTE 4.86 LYMPHOCYTE ABSOLUTE 1.61 MONOCYTE ABSOLUTE 0.60 EOSINOPHIL ABSOLUTE 0.03 BASOPHILS ABSOLUTE 0.05 IMMATURE GRANULOCYTES ABSOLUTE 0.02 RADIOLOGY: CTA CHEST W WO CONTRAST Radiologist Impression IMPRESSION: No pulmonary embolism. Right middle and left upper lobe pulmonary nodules measuring up to 4 mm, for which follow-up CT chest is recommended in 6-12 months. DICTATION LOCATION: Location 1, [facility] XR CHEST PA OR AP Radiologist Impression IMPRESSION: Negative PA chest. DICTATION LOCATION: Location 1 - [facility] EKG: NSR, rate 90, no ST elevations, normal axis PROCEDURES Procedures MEDICAL DECISION MAKING AND PLAN OF CARE MDM Summary Statement: 51 year old male, who originally presented as a code STEMI, comes in with complaints of chest discomfort, described as pressure, since waking from sleep this morning. EKG en route showed LBBB, which was read by the machine as a STEMI. His EKG on arrival here is normal. The patient reports he was told of his left bundle branch block last year. Troponin is negative. Will admit for further work up. [facility] Hospitalist notified. I have reviewed previous: ECG I have reviewed current: labs, ECG and imaging I have reviewed nursing notes related to past medical history, social history, and review of systems and agree, unless otherwise noted. Consults: hospitalist ED Course 4:29 PM: Code STEMI paged overhead in ED, ETA 10 minutes. 4:37 PM: Standby ordered on code STEMI due to patient's normal EKG on arrival to ED. 5:00 PM: D/w ALANNAH Pyle. [facility]. Medications Administered During the ED Stay from 05/21/2016 1638 to 05/21/2016 1940 Date/Time Order Dose Route Action 05/21/2016 1645 NITROGLYCERIN 50 MG/250 ML (200 MCG/ML) IN 5 % DEXTROSE INTRAVENOUS Canceled Entry 05/21/2016 1645 HEPARIN (PORCINE) 5,000 UNIT/ML INJECTION SOLUTION Canceled Entry 05/21/2016 1741 aspirin (GEOVANI CHEWABLE) chew tablet 324 mg 324 mg Oral Not Given 05/21/2016 1741 nitroglycerin (NITRO-BID) 2 % topical ointment 1 Inch 1 Inch Topical Refused 5:05 PM: Updated patient on results, diagnosis, and plan for admission. Patient agrees with the plan. The opportunity for questions was given and questions were answered to the patient's satisfaction. All questions and concerns have been addressed. ED provider and ED nurse verbally discussed patient plan of care at this time. Discharge Medication List as of 05/22/2016 1:55 PM CONTINUE these medications which have NOT CHANGED Details aspirin (ECOTRIN EC) 81 mg Tablet, Delayed Release (E.C.) Take 81 mg by mouth daily. STOP taking these medications minocycline (MINOCIN) 100 mg capsule Comments: Reason for Stopping: LAST VS BP: 129/80 (05/22/16 1112), Heart Rate: 71 bpm (05/22/16 1112), Resp: 18 (05/22/16 111), Temp: 97.6 ??F (36.4 ??C) (05/22/16 111), Temp src: Oral (05/22/161111), SpO2: 98 % (05/22/16 111) CLINICAL IMPRESSION Final diagnoses: [R07.9] Chest pain, unspecified type (Primary) DISPOSITION, EDUCATION AND MEDICATION RECONCILIATION Medications reconciled. See after visit summary for patient education on discharged patients. Disposition: Patient admitted to the telemetry floor in stable condition. ATTESTATION STATEMENTS This note has been prepared by Juan Little acting as a scribe for Dr. Dimitrios Cast on 05/21/2016 at 5:03 PM. The scribe's documentation has been prepared under my direction and personally reviewed by me, Taylor, in its entirety on 05/24/16 at 10:40 AM. I confirm that the note above accurately reflects all work, treatment, procedures, and medical decision making performed by me. * Berta Daigle - 05/21/2016 4:30 PM CDT CODE STEMI ACTIVATED, CALLED RAPID ACCESS @ 1630. documented in this encounter Miscellaneous Notes * Care Plan - Pushpa Correa RN - 05/22/2016 1:58 PM CDT Patient had ECHO stress test today. Stable. Seen by physical therapy (discharged by physical therapy). Denies pain, except chronic back and neck pain from the uncomfortable beds . Discharge as ordered. * Care Plan - Len Luther LMSW - 05/22/2016 1:48 PM CDT Problem: Discharge Planning Goal: Identify discharge needs upon admission and through discharge Outcome: Progressing Clinical documentation reviewed. Comprehensive Discharge Planning Risk Assessment was completed. Total Score of 9 or below does not identify immediate needs for discharge. Age Score: 4 Disability Score: 0 Prior Living Status Score: {0 Mobility Limitation Score: 0 TOTAL SCORE: [address] consult if needs for discharge are identified. Care Management will continue to follow for discharge planning. Len Luther LMSW [id number] * Therapy Evaluation - René Sanchez, Physical Therapist - 05/22/2016 8:31 AM CDT Physical Therapy order received, chart reviewed, and evaluation completed. Please see full evaluation below for details. Daily PT notes will be located in Care Plan notes. Thank You. 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 Pt was independent with all mobility and ADL's without an assistive device Home Equipment: none O: Appearance: 51 y.o male, reclined in bed, IV, telemetry Cognition/Perception: Alert and O X 4 ROM: Bilateral Lower Extremity WFL Muscle Tone: WFL Strength: Bilateral Lower Extremity WFL MOBILITY ASSESSMENT: Bed Mobility: Supine to sit independent Transfers: independent Gait: 400' without an assistive device independent --Gait Deviations: Pt appears steady and safe throughout, no loss of balance or c/o pain Balance: Good Stairs/Curb: Pt declines due to multiple lines, states he has no difficulty with stairs Patient/Family Education: Purpose of PT eval, importance of mobiltiy Positioning after tx: Pt is up in w/c, transportation present to take patient to stress test A: Disabilities: None noted Assessment: Pt was found to be independent and safe with all mobility, no further PT indicated Clinical Presentation: Stable and/or uncomplicated EVALUATION COMPLEXITY: Low Complexity -These findings are based on patient's self reporting, therapist's objective findings and professional determinations. Recommend: none Recommendations were made on today's assessment. Additional recommendations will be based on patient's progress in therapy. P: PT will d/c this patient due to independence with all mobility Recommendations: For: Patient, Family, Nursing --OOB to chair with chair alarm, ambulate in room or hallway, with assist Equipment needed at DC: none --Patient involved in goal setting: yes Patient goals will be found in the Care Plan section of the medical chart. Zone #: [id number] * Therapy Evaluation - Tish Rashid, Occupational Therapist - 05/22/2016 8:28 AM CDT Per RN and PT, pt independent and no need for OT eval. Will DC OT at this time. Thank you. * Care Plan - Desiree Dolan RN - 05/22/2016 5:02 AM CDT Introduced self to pt and discussed plan of care. SR on monitor and VSS. No c/o CP. NPO since MN. Call light in reach. Will continue to monitor. documented in this encounter Plan of Treatment Not on file documented as of this encounter Procedures Procedure Name Priority Date/Time Associated Diagnosis Comments TELEMETRY REPORT 05/23/2016 4:48 PM CDT ECHO STRESS W CONTRAST EXERCISE Routine 05/22/2016 9:18 AM CDT CBC WITHOUT DIFFERENTIAL Routine 05/22/2016 5:44 AM CDT TROPONIN Routine 05/22/2016 5:44 AM CDT CTA CHEST W WO CONTRAST Stat 05/22/2016 2:45 AM CDT TROPONIN Routine 05/22/2016 12:35 AM CDT D-DIMER Routine 05/21/2016 10:15 PM CDT OT EVAL AND TREAT Routine 05/21/2016 8:4 9 PM CDT PT EVAL AND TREAT Routine 05/21/2016 8:4 9 PM CDT CBC WITH DIFFERENTIAL Stat 05/21/2016 5:59 PM CDT TROPONIN Stat 05/21/2016 5:59 PM CDT COMPREHENSIVE METABOLIC PANEL Stat 05/21/2016 5:59 PM CDT XR CHEST PA OR AP 1 VW Stat 7 5:27 PM CDT OXYGEN VIA DEVICE TO KEEP O2 SAT ABOVE Stat 05/21/2016 5:01 PM CDT PULSE OXIMETRY, CONTINUOUS Stat 05/21/2016 5:01 PM CDT EKG 12-LEAD Stat 05/21/2016 4:38 PM CDT documented in this encounter Results * TELEMETRY REPORT (05/23/2016 4:48 PM CDT) Provider Scanning ECG ORDERABLES * ECHO STRESS W CONTRAST EXERCISE (05/22/2016 9:18 AM CDT) EJECTION FRACTION INTERFACE SYSTEM 05/22/2016 8:51 AM CDT Narrative INTERFACE SYSTEM - 05/22/2016 9:45 AM CDT [address] [place] [address] [email or web address] Yamil Protocol Patient: ? Manish Campbell MRN: ? [id number] Study ID: ?[id number] Gender: ?M : ? 1965 Age: ? 51 Race: ?[facility] Height Study Date: ?05/22/2016 Weight: Access. #: ? [id number] BP: *Referring Physician:* Anna Merrill *Ordering Physician:* ??Anna Merrill Route Driver Salesperson: Indications: Lightheadedness. STUDY CONCLUSIONS: SUMMARY: - Stress: 5:30 min. 7.0 METs. Functional capacity was ??normal. - Stress ECG conclusions: A rate related left bundle branch ??block developed during exercise. ECG assessment for ??myocardial ischemia was indeterminate due to LBBB. - Stress echo: There was no echocardiographic evidence for ??stress-induced ischemia. - Baseline: LV global systolic function was normal. The ??estimated LV ejection fraction was 55%. Impressions: ??Normal Stress Echocardiogram. Rate related LBBB aberrancy was present during treadmill exercise. Cardiac Anatomy: Baseline ECG: ?? Normal sinus rhythm. Normal tracing. Stress results: ??5:30 min. 7.0 METs. ??Maximal heart rate during stress was 160bpm (95% of maximal predicted heart rate). The maximal predicted heart rate was 168bpm.The heart rate response to stress was normal. There was a normal resting blood pressure with an appropriate response to stress. ??The patient experienced no chest pain during stress. ?? Functional capacity was normal. ?Treadmill exercise testing was performed using the Yamil protocol. The patient exercised for 5 min 30 sec, to a maximal work rate of 7mets. Exercise was terminated due to dyspnea and fatigue. Stress ECG: ??A rate related left bundle branch block developed during exercise. ECG assessment for myocardial ischemia was indeterminate due to LBBB. Baseline: LV size was normal. LV global systolic function was normal. The estimated LV ejection fraction was 55%. Normal wall motion; no LV regional wall motion abnormalities. Peak stress: LV size was reduced. LV global systolic function was augmented. Normal wall motion; no LV regional wall motion abnormalities. Stress echo results: ? There was no echocardiographic evidence for stress-induced ischemia. Procedure data: Consent: ??The risks, benefits, and alternatives to the procedure were explained to the patient and informed consent was obtained. ??Procedure information: ??Initial setup. A baseline ECG was recorded. Surface ECG leads and automatic cuff blood pressure measurements were monitored. Transthoracic stress echocardiography. Images were captured at baseline and peak exercise. Intravenous contrast (Definity) was administered. ??Study completion: ??There were no complications. ?Yamil protocol. Stress echocardiography. ??Birthdate: ??Patient birthdate: 1965. ??Age: ??Patient is 51yr old. ??Sex: ??Gender: male. Study date: ??Study date: May 22, 2016. ?Prepared and Electronically Authenticated Vandana Alfonso MD [id number] Procedure Note Vandana Alfonso MD - 05/22/2016 [place] [address] [email or web address] Stress Echocardiography Yamil Protocol Patient: Manish Campbell Study ID: [id number] Gender: M : 1965 Age: 51 Race: [facility]U Height Study Date: 05/22/2016 Weight: Access. #: [id number] BP: *Referring Physician:* Anna Merrill *Ordering Physician:* Anna Merrill Route Driver Salesperson: Indications: Lightheadedness. STUDY CONCLUSIONS: SUMMARY: - Stress: 5:30 min. 7.0 METs. Functional capacity was normal. - Stress ECG conclusions: A rate related left bundle branch block developed during exercise. ECG assessment for myocardial ischemia was indeterminate due to LBBB. - Stress echo: There was no echocardiographic evidence for stress-induced ischemia. - Baseline: LV global systolic function was normal. The estimated LV ejection fraction was 55%. Impressions: Normal Stress Echocardiogram. Rate related LBBB aberrancy was present during treadmill exercise. Cardiac Anatomy: Baseline ECG: Normal sinus rhythm. Normal tracing. Stress results: 5:30 min. 7.0 METs. Maximal heart rate during stress was 160bpm (95% of maximal predicted heart rate). The maximal predicted heart rate was 168bpm.The heart rate response to stress was normal. There was a normal resting blood pressure with an appropriate response to stress. The patient experienced no chest pain during stress. Functional capacity was normal. Treadmill exercise testing was performed using the Yamil protocol. The patient exercised for 5 min 30 sec, to a maximal work rate of 7mets. Exercise was terminated due to dyspnea and fatigue. Stress ECG: A rate related left bundle branch block developed during exercise. ECG assessment for myocardial ischemia was indeterminate due to LBBB. Baseline: LV size was normal. LV global systolic function was normal. The estimated LV ejection fraction was 55%. Normal wall motion; no LV regional wall motion abnormalities. Peak stress: LV size was reduced. LV global systolic function was augmented. Normal wall motion; no LV regional wall motion abnormalities. Stress echo results: There was no echocardiographic evidence for stress-induced ischemia. Procedure data: Consent: The risks, benefits, and alternatives to the procedure were explained to the patient and informed consent was obtained. Procedure information: Initial setup. A baseline ECG was recorded. Surface ECG leads and automatic cuff blood pressure measurements were monitored. Transthoracic stress echocardiography. Images were captured at baseline and peak exercise. Intravenous contrast (Definity) was administered. Study completion: There were no complications. Yamil protocol. Stress echocardiography. Birthdate: Patient birthdate: 1965. Age: Patient is 51yr old. Sex: Gender: male. Study date: Study date: May 22, 2016. Prepared and Electronically Authenticated Vandana Alfonso MD [id number] Anna Merrill MD US ORDERABLE S INTERFACE SYSTEM Refer to clinic/hospital department * TROPONIN (05/22/2016 5:44 AM CDT) TROPONIN T <0.01 <0.04 ng/mL 05/22/2016 6:17 AM CDT [employer] [facility] Blood Venipuncture / Unknown 05/22/2016 5:44 AM CDT 05/22/2016 5:54 AM CDT Anna Merrill MD CHEMISTRY OR DERABLES [employer] [facility]# [id number] [address] [place] [address] * CBC WITHOUT DIFFERENTIAL (05/22/2016 5:44 AM CDT) WBC 6.3 4.0 - 9.8 K/uL 05/22/2016 6:08 AM CDT [employer] [facility] RBC 4.90 4.50 - 5.40 M/uL 05/22/2016 6:08 AM CDT [employer] [facility] HEMOGLOBIN 14.5 13.6 - 16.5 g/dL 05/22/2016 6:08 AM CDT [employer] [facility] HEMATOCRIT 43.6 40.0 - 48.0 % 05/22/2016 6:08 AM CDT [employer] [facility] MCV 89.0 82.0 - 99.0 fL 05/22/2016 6:08 AM CDT [employer] [facility] MCH 29.6 27.2 - 32.6 pg 05/22/2016 6:08 AM CDT [facility] MCHC 33.3 31.5 - 35.5 g/dL 05/22/2016 6:08 AM CDT [facility] PLATELETS 203 140 - 350 K/uL 05/22/2016 6:08 AM CDT [facility] MPV 10.4 9.3 - 12.4 fL 05/22/2016 6:08 AM CDT [facility] RDW 11.9 11.5 - 14.5 % 05/22/2016 6:08 AM CDT [facility] RDW-STDEV 38.5 37.1 - 48.7 fL 05/22/2016 6:08 AM CDT [facility] Blood Venipuncture / Unknown 05/22/2016 5:44 AM CDT 05/22/2016 5:54 AM CDT Anna Merrill MD HEMATOLOGY O RDERABLES [facility]# [id number] [address] [place] [address] * CTA CHEST W WO CONTRAST (05/22/2016 2:45 AM CDT) Anatomical Region Laterality Modality Chest Computed Tomogra phy 05/22/2016 2:47 AM CDT Impressions 05/22/2016 2:59 AM CDT IMPRESSION: No pulmonary embolism. Right middle and left upper lobe pulmonary nodules measuring up to 4 mm, for which follow-up CT chest is recommended in 6-12 months. DICTATION LOCATION: Location 1, [facility] Narrative 05/22/2016 2:59 AM CDT CTA CHEST W WO CONTRAST DATE: 05/22/2016 2:45 AM CLINICAL INFORMATION: Chest pain COMPARISON: Chest x-ray 05/21/2016 PROCEDURE: Axial images were obtained from the thoracic inlet through the upper abdomen following the administration of intravenous contrast. Multiplanar reformatted images were reviewed. FINDINGS: LUNGS/AIRWAYS/PLEURA: Bibasilar dependent atelectasis. Right apical calcified granuloma. 4mm right middle lobe nodule (series 5 image 70), 4 mm subpleural left upper lobe nodule (image 76). No endotracheal or endobronchial lesions. No pleural abnormalities. HEART/VESSELS: No pulmonary embolism. Heart size is normal. No pericardial abnormality. Aorta and great vessels unremarkable. MEDIASTINUM AND JOJO: Within normal limits. CHEST WALL AND LOWER NECK: Within normal limits. VISUALIZED ABDOMEN: Within normal limits. BONES: Within normal limits. Procedure Note Jose Hong MD - 05/22/2016 CTA CHEST W WO CONTRAST DATE: 05/22/2016 2:45 AM CLINICAL INFORMATION: Chest pain COMPARISON: Chest x-ray 05/21/2016 PROCEDURE: Axial images were obtained from the thoracic inlet through the upper abdomen following the administration of intravenous contrast. Multiplanar reformatted images were reviewed. FINDINGS: LUNGS/AIRWAYS/PLEURA: Bibasilar dependent atelectasis. Right apical calcified granuloma. 4mm right middle lobe nodule (series 5 image 70), 4 mm subpleural left upper lobe nodule (image 76). No endotracheal or endobronchial lesions. No pleural abnormalities. HEART/VESSELS: No pulmonary embolism. Heart size is normal. No pericardial abnormality. Aorta and great vessels unremarkable. MEDIASTINUM AND JOJO: Within normal limits. CHEST WALL AND LOWER NECK: Within normal limits. VISUALIZED ABDOMEN: Within normal limits. BONES: Within normal limits. IMPRESSION IMPRESSION: No pulmonary embolism. Right middle and left upper lobe pulmonary nodules measuring up to 4 mm, for which follow-up CT chest is recommended in 6-12 months. DICTATION LOCATION: Location 1, [facility] Avril John PA-C CT ORDERABLES * TROPONIN (05/22/2016 12:35 AM CDT) TROPONIN T <0.01 <0.04 ng/mL 05/22/2016 1:07 AM CDT [facility] [employer] [facility] Blood Venipuncture / Unknown 05/22/2016 12:35 AM CDT 05/22/2016 12:45 AM CDT Anna Merrill MD CHEMISTRY OR DERABLES Performing Organization Address [facility] Co de Phone Number [facility]# [id number] [address] [place] [address] * (ABNORMAL) D-DIMER (05/21/2016 10:15 PM CDT) D-DIMER QUANT 0.46(H) <0.42 ug/mL FEU 05/21/2016 10:48 PM CDT [facility] Comment: The DIC reference range is not clearly established in uncomplicated pregnancies. ??Values above the upper limit of the reference range are common from the 31st to 40th week of . ??High negative predictive values for DVT have been reported with the current methodology, as part of a comprehensive medical examination, including risk stratification. Various clinical studies utilizing this method have shown that a result of <0.5 mcg/ml FEU excludes deep vein thrombosis and pulmonary embolism with high sensitivity when used in conjunction with a non-high clinical pre-test probability assessment. Blood Collection / Unknown 05/21/2016 10:15 PM CDT 05/21/2016 10:24 PM CDT Anna Merrill MD HEMATOLOGY O RDERABLES Performing Organization Address [facility] Co de Phone Number [facility]# [id number] [address] [place] [address] * TROPONIN (05/21/2016 5:59 PM CDT) Pathologist [facility] [place] TROPONIN T <0.01 <0.04 ng/mL 05/21/2016 6:37 PM CDT [facility] Blood Venipuncture / Unknown 05/21/2016 5:59 PM CDT 05/21/2016 6:11 PM CDT Dimitrios Cast MD CHEMISTRY ORDERABLES Performing Organization Address [facility] Co de Phone Number [facility]# [id number] [address] [place] [address] * (ABNORMAL) COMPREHENSIVE METABOLIC PANEL (05/21/2016 5:59 PM CDT) [facility] SODIUM 141 136 - 145 mmol/L 05/21/2016 6:41 PM CDT [facility] POTASSIUM 3.7 3.5 - 5.0 mmol/L 05/21/2016 6:41 PM CDT [facility] CHLORIDE 102 98 - 107 mmol/L 05/21/2016 6:41 PM CDT [facility] CO2 28 22 - 29 mmol/L 05/21/2016 6:41 PM CDT [facility] CALCIUM 9.6 8.6 - 10.2 mg/dL 05/21/2016 6:41 PM CDT [facility] BUN 12 6 - 20 mg/dL 05/21/2016 6:41 PM CDT [facility] CREATININE 1.10 0.67 - 1.17 mg/dL 05/21/2016 6:41 PM CDT [facility] GLUCOSE 103(H) 74 - 99 mg/dL 05/21/2016 6:41 PM CDT [facility] TOTAL PROTEIN 6.9 6.7 - 8.6 g/dL 05/21/2016 6:41 PM CDT [facility] ALBUMIN 4.2 3.5 - 5.2 g/dL 05/21/2016 6:41 PM CDT [facility] BILIRUBIN TOTAL 0.3 0.3 - 1.2 mg/dL 05/21/2016 6:41 PM CDT [facility] ALKALINE PHOSPHATASE 44 40 - 129 U/L 05/21/2016 6:41 PM CDT [facility] AST 19 <41 U/L 05/21/2016 6:41 PM CDT [facility] ALT 23 <42 U/L 05/21/2016 6:41 PM CDT [facility] GFR >60 >=60 mL/min/1.7 3 sq meter 05/21/2016 6:41 PM CDT [facility] Comment: eGFR has not been validated for use in the elderly (> 70 years of age), women, patients with serious co-morbid conditions, or persons with extremes of body size or muscle mass and should also be interpreted with caution in patients with acute kidney failure, dialysis dependent patients, patients reporting exceptional dietary intake (e.g. vegetarian diet, high protein diets, creatine supplementation), and patients with severe liver disease. Based on National Kidney Disease Education Program If patient is , please refer to the GFR result. GFR, >60 >=60 mL/min/1.7 3 sq meter 05/21/2016 6:41 PM CDT [facility] ANION GAP 11 8 - 16 mmol/L 05/21/2016 6:41 PM CDT [facility] Blood Venipuncture / Unknown 05/21/2016 5:59 PM CDT 05/21/2016 6:11 PM CDT Dimitrios Cast MD CHEMISTRY ORDERABLES [facility] [facility] CLIA# [id number] [address] [place] [id number] * CBC WITH DIFFERENTIAL (05/21/2016 5:59 PM CDT) WBC 7.2 4.0 - 9.8 K/uL 05/21/2016 6:19 PM CDT [facility] RBC 5.36 4.50 - 5.40 M/uL 05/21/2016 6:19 PM CDT [facility] HEMOGLOBIN 16.0 13.6 - 16.5 g/dL 05/21/2016 6:19 PM CDT [facility] HEMATOCRIT 47.9 40.0 - 48.0 % 05/21/2016 6:19 PM CDT [facility] MCV 89.4 82.0 - 99.0 fL 05/21/2016 6:19 PM CDT [employer] MCH 29.9 27.2 - 32.6 pg 05/21/2016 6:19 PM CDT [facility] MCHC 33.4 31.5 - 35.5 g/dL 05/21/2016 6:19 PM CDT [facility] RDW 11.9 11.5 - 14.5 % 05/21/2016 6:19 PM CDT [facility] RDW-STDEV 38.5 37.1 - 48.7 fL 05/21/2016 6:19 PM CDT [facility] PLATELETS 231 140 - 350 K/uL 05/21/2016 6:19 PM CDT [facility] MPV 10.6 9.3 - 12.4 fL 05/21/2016 6:19 PM CDT [facility] NEUTROPHILS 68 % 05/21/2016 6:19 PM CDT [facility] LYMPHOCYTES 23 % 05/21/2016 6:19 PM CDT [facility] MONOCYTES 8 % 05/21/2016 6:19 PM CDT [facility] EOSINOPHILS 0 % 05/21/2016 6:19 PM CDT [facility] - . [facility] BASOPHILS 1 % 05/21/2016 6:19 PM CDT [facility] - . [facility] IMMATURE GRANULOCYTES 0 % 05/21/2016 6:19 PM CDT [facility] NEUTROPHIL ABSOLUTE 4.86 1.90 - 7.00 K/uL 05/21/2016 6:19 PM CDT [facility] LYMPHOCYTE ABSOLUTE 1.61 0.70 - 4.50 K/uL 05/21/2016 6:19 PM CDT [facility] - . [facility] MONOCYTE ABSOLUTE 0.60 0.10 - 1.30 K/uL 05/21/2016 6:19 PM CDT [facility] - . [facility] EOSINOPHIL ABSOLUTE 0.03 0.00 - 0.70 K/uL 05/21/2016 6:19 PM CDT [facility] - . [facility] BASOPHILS ABSOLUTE 0.05 0.00 - 0.20 K/uL 05/21/2016 6:19 PM CDT [facility] - . [facility] IMMATURE GRANULOCYTES ABSOLUTE 0.02 0.00 - 0.03 K/uL 05/21/2016 6:19 PM CDT [facility] Blood Venipuncture / Unknown 05/21/2016 5:59 PM CDT 05/21/2016 6:11 PM CDT Dimitrios Cast MD HEMATOLOGY ORDERABLE S [facility] CLIA# [id number] [address] [place] [address] * XR CHEST PA OR AP (05/21/2016 5:27 PM CDT) Anatomical Region Laterality Modality Chest Computed Radiogr aphy 05/21/2016 5:27 PM CDT Impressions 05/21/2016 7:44 PM CDT IMPRESSION: Negative PA chest. DICTATION LOCATION: Location [address] [place] [address] Narrative 05/21/2016 7:44 PM CDT PORTABLE CHEST, 05/21/2016 5:27 PM HISTORY: Chest pain. FINDINGS: There are no comparison films. The lungs are fully inflated and asymmetrically aerated. No focal consolidation or effusion is identified. The heart and mediastinum are within normal limits. Procedure Note Guera Og MD - 05/21/2016 PORTABLE CHEST, 05/21/2016 5:27 PM HISTORY: Chest pain. FINDINGS: There are no comparison films. The lungs are fully inflated and asymmetrically aerated. No focal consolidation or effusion is identified. The heart and mediastinum are within normal limits. IMPRESSION IMPRESSION: Negative PA chest. DICTATION LOCATION: Location - [facility] Dimitrios Cast MD DIAGNOSTIC IMAGING O RDERABLES * EKG 12-LEAD (05/21/2016 4:38 PM CDT) 05/21/2016 4:38 PM CDT Narrative INTERFACE SYSTEM - 05/21/2016 6:05 PM CDT ? Stationary ECG Study ? [facility] ? Test Date: ?05/21/2016 4:38 PM Pat Name: ? MANISH CAMPBELL ? Department: ?? 36 ?Room: ? 06 06 Gender: ? 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 : ?[id number] ? Requested By: ?? Order Number: [id number] ?Reading MD: ?? Efren Lester ? Measurements Intervals ?[place] ? Rate: ? 92 ? P: ?46 MO: ? 177 ?QRS: ?41 QRSD: ? 83 ? T: ?46 QT: ? 322 ? QTc: ?399 ? Interpretive Statements ? Sinus rhythm Electronically Signed On 05-21-2016 18:05:53 CDT by Efren Lester Procedure Note Efren Lester MD - 05/17/2021 Stationary ECG Study 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: : 1965 Requested By: Order Number: [id number] Reading MD: Efren Lester Measurements Intervals [place] Rate: 92 P: 46 MO: 177 QRS: 41 QRSD: 83 T: 46 QT: 322 QTc: 399 Interpretive Statements Sinus rhythm Electronically Signed On 05-21-2016 18:05:53 CDT by Efren Lester Dimitrios Cast MD ECG ORDERABLES Performing Organization Address City/State/[facility] Co de Phone Number INTERFACE SYSTEM Refer to clinic/hospital department documented in this encounter Visit Diagnoses Diagnosis Chest pain, unspecified type- Primary Tobacco use Tobacco use disorder Precordial pain Dizzy Dizziness and giddiness Chest pain Chest pain, unspecified documented in this encounter Administered Medications Inactive Administered Medications - up to 3 most recent administrations Medication Order MAR Action Action Date Dose Rate Site aspirin (ECOTRIN EC) tablet 81 mg 81 mg, Oral, DAILY, First dose on Sat05/22/16 at 0900, Until Discontinued, Routine Given 05/22/2016 9:27 AM CDT 81 mg docusate sodium (COLACE) capsule 100 mg 100 mg, Oral, TWO TIMES DAILY, First dose on Sat05/21/16 at 2100, Until Discontinued, Routine Given 05/21/2016 10:03 PM CDT 100 mg enoxaparin (LOVENOX) injection 40 mg 40 mg, subCUT, EVERY 24 HOURS, First dose on Sat05/21/16 at 2200, Until Discontinued, Routine Given 05/21/2016 10:03 PM CDT 40 mg Abdominal Tissue iopamidol (ISOVUE-300) 61 % injection 150 mL 150 mL, IV, INTRA-PROCEDURE ONCE, 1 dose, Starting on Sat05/22/16 at 0243, Until Sat05/22/16 at 0246, Routine Contrast Given 05/22/2016 2:46 AM CDT 75 mL perflutren lipid microspheres (DEFINITY) 1.1 mg/mL injection 2 mL 2 mL, IV, INTRA-PROCEDURE ONCE, 1 dose, Starting on Sat05/22/16 at 0907, Until Sat05/22/16 at 0908, Routine Contrast Given 05/22/2016 9:08 AM CDT 2 mL sodium chloride 0.9% infusion IV, at 100 mL/hr, CONTINUOUS, Starting on Sat05/21/16 at 2100, Until Sat05/22/16 at 1829, Routine Rate Verify 05/22/2016 2:00 PM CDT 100 mL/hr Bag Switched 05/22/2016 7:27 AM CDT 100 mL/hr Rate Verify 05/22/2016 6:00 AM CDT 100 mL/hr documented in this encounter Active and Recently Administered Medications Due to Daylight Saving Time, this section may contain times in both HERPETOLOGY TEACHER and CDT. Scheduled Medication Order 05/20/2016 05/21/2016 05/22/2016 aspirin (ECOTRIN EC) tablet 81 mg 81 mg, Oral, DAILY, First dose on Sat05/22/16 at 0900, Until Discontinued, Routine 926 (Given - Provid er: Pushpa Correa RN) docusate sodium (COLACE) capsule 100 mg 100 mg, Oral, TWO TIMES DAILY, First dose on Sat05/21/16 at 2100, Until Discontinued, Routine 2202 (Given - Provider: Desiree Dolan RN) 0900 (Refused - Provider: Pushpa Correa RN) enoxaparin (LOVENOX) injection 40 mg 40 mg, subCUT, EVERY 24 HOURS, First dose on Sat05/21/16 at 2200, Until Discontinued, Routine 2202 (Given - Provider: Desiree Dolan RN) iopamidol (ISOVUE-300) 61 % injection 150 mL (COMPLETED) 150 mL, IV, INTRA-PROCEDURE ONCE, 1 dose, Starting on Sat05/22/16 at 0243, Until Sat05/22/16 at 0246, Routine 0246 (Contrast Given - Provider: Salome Fernandez, RT - Comment: 75ml wasted) naloxone (NARCAN) 0.4 mg/mL injection 0.1 mg 0.1 mg, IV, SEE ADMIN INSTRUCTIONS, Starting on Sat05/21/16 at 2049, Until Sat05/22/16 at 1829, Routine perflutren lipid microspheres (DEFINITY) 1.1 mg/mL injection 2 mL (COMPLETED) 2 mL, IV, INTRA-PROCEDURE ONCE, 1 dose, Starting on Sat05/22/16 at 0907, Until Sat05/22/16 at 0908, Routine 0908 (Contrast Given - Provider: Arben Yu - Comment: dilute with 8.7ml NS.) Continuous Medication Order 05/20/2016 05/21/2016 05/22/2016 sodium chloride 0.9% infusion IV, at 100 mL/hr, CONTINUOUS, Starting on Sat05/21/16 at 2100, Until Sat05/22/16 at 1829, Routine 2203 (New Bag - Provider: Desiree Dolan RN) 0000 (Rate Verify - Provider: Desiree Dolan RN)0600 (Rate Verify - Provider: Desiree Dolan RN)0727 (Bag Switched - Provider: Pushpa Correa, CRUZ)1400 (Rate Verify - Provider: Pushpa Correa, RN) PRN Medication Order 05/20/2016 05/21/2016 05/22/2016 acetaminophen (TYLENOL) tablet 650 mg 650 mg, Oral, EVERY 6 HOURS PRN, Starting on Sat05/21/16 at 2049, Until Sat05/22/16 at 1829, Other (See Comment), See admin instructions, Routine magnesium hydroxide (MILK OF MAGNESIA) oral suspension 30 mL 30 mL, Oral, DAILY PRN, Starting on Sat05/21/16 at 2049, Until Sat05/22/16 at 1829, Constipation, Routine ondansetron (ZOFRAN) 4 mg/2 mL injection 4 mg 4 mg, IV, EVERY 6 HOURS PRN, Starting on Sat05/21/16 at 2049, Until Sat05/22/16 at 1829, Nausea/Emesis, Routine ondansetron (ZOFRAN) 4 mg/2 mL injection 4 mg 4 mg, IV, EVERY 6 HOURS PRN, Starting on Sat05/21/16 at 2049, Until Sat05/22/16 at 1829, Nausea/Emesis, Routine documented in this encounter Care Teams Sanitary Landfill Supervisor Relationship Specialty Start Date End Date Chirag Munroe MD [address] [place] [address] PCP - General Family Practice 05/21/16 documented as of this encounter
--- OUTSIDE RECORDS SUMMARY | 2024-03-16 06:44 | XMS_ITS | Continuity of Care Document ---
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 [address] , [address], [place], [address], [place]. tel:[phone] Family History Family Member Type Diagnosis Age At Onset No Information Payers Payer name Insurance type Covered democrat ID Authoriza tion(s) [facility] Commercial CI [id number] Social History Type Description Quantity Date Captured Comments Sex Male Smoking Status No Information Chief Complaint And Reason For Visit No Information Reason For Referral Reason For Referral No Information History Of Present Illness Encounter Date Complaint History Of Prese nt Illness No Information Functional Status Date Functional Assessmen t No Information Instructions Date Instruction Additional Infor mation No Information Assessments Type Assessment Date No Information Patient Care Teams Name Effective Dates (start - stop) Status Members No Information
--- OUTSIDE RECORDS SUMMARY | 2024-03-16 06:44 | XMS_ITS | Encounter Summary ---
Author Organization [employer] Address 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 Pt AXO X4; pt reports chest discomfort and pressure during the night that woke him up out of his sleep, pt reports he got up and took an ASA and checked his BP at home and it was high and HR was high and came down during the morning with monitoring. Pt report oxygen was low in mid 70's and 80's +MACHADO +discomfort and tightness in upper back/shoulders and neck. -thinner. Pt reports he received 3 baby ASA additional at work before coming to ED * Auth/Cert Specialty Diagnoses / Procedures Referred By Adamaris fernandez Referred To Contact [facility] [address] [place] [address] Referral ID Status Reason Start Date Expiration Date Visits Re quested Visits Authorized [id number] 1 1 Encounter Details Date Type Department Care Team (Late st Contact Info) Description 07/10/2021 1:47 PM CDT - 07/11/2021 5:25 PM CDT Emergency [facility] [address] [place] [address] Bell Deluca MD [address] [facility] [place] [address] Sonali Elmore MD [address] [facility] [id number] [place] [address] Chest pain Discharge Disposition: Home Health Care Svc Social History Tobacco Use Types Packs/Day Years [...] was confirmed or suspected to have Coronavirus/COVID-19? Unable to assess 07/11/2021 8:21 AM CDT documented as of this encounter Last Filed [...] Mass Index 32.82 07/10/2021 4:35 PM CDT documented in this encounter Discharge Summaries * Sonali Elmore MD - 07/11/2021 4:33 PM CDT [facility] ADULT H[facility]PITALIST DISCHARGE SUMMARY This encounter was completed via two-way synchronous audio and video communication. Manish Campbell 56 y.o. male 1965 CSN: [id number] Date of Admission: 07/10/2021 Date of Discharge: 07/11/2021 Discharging Physician: Sonali Elmore MD LOS: 0 days PCP: Chirag Munroe MD Activity: activity as tolerated. Dispo: home Diet: DIET CARDIAC Low Cholesterol (AHA),; 2GM Sodium (Low), Code Status at Discharge: Full Code Wound Care: none needed 45 Minutes spent in the d/c process today. The history and physical were dictated on 07/10/2021 by Sonali Elmore MD and included a complete history and review of systems. This will not be repeated here. Chief Complaint: Chief Complaint Patient presents with ??? Chest Pain Pt to ED via EMS with C/O chest pain. Pt AXO X4; pt reports chest discomfort and pressure during the night that woke him up out of his sleep, pt reports he got up and took an ASA and checked his BP at home and it was high and HR was high and came down during the morning with monitoring. Pt report oxygen was low in mid 70's and 80's +MACHADO +discomfort and tightness in upper back/shoulders and neck. -thinner. Pt reports he received 3 baby ASA additional at work before coming to ED Admitting Dx: Chest pain Discharge Diagnoses: Active Hospital Problems Diagnosis ??? Benign hypertension ??? Palpitations ??? Chest pain Resolved Hospital Problems No resolved problems to display. Relevant Hospital Course: 56 yo here with CP, MACHADO, palpitations. Patient is worked up for CP and similar symptoms several times before, about 1x per year. All cardiac testing has been normal including event monitors and stress testing. Troponins were WNL, patient does have chronic LBBB. Repeat NM stress was negative. Echo was negative. 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 Discharge Medications & New Prescriptions: Medication List CONTINUE taking these medications aspirin 81 mg Tablet, Delayed Release (E.C.) Commonly known as: ECOTRIN EC Take 81 mg by mouth daily. Refills: 0 STOP taking these medications doxycycline calcium 50 mg/5 mL suspension Commonly known as: VIBRAMYCIN Consultants: None Brief Synopsis of Diagnostic Studies This Admission (Please see full report for details): Negative stress echo and enzymes Was patient monitored on telemetry during this hospitalization? Yes. Telemetry personally reviewed; significant events: none Labs and Studies from this Hospitalization Needing Follow Up: None Discharge Lab Data (Please note date of lab as some may have preceeded admission): Lab Results Component Value Date WBC 6.4 07/10/2021 HGB 16.7 (H) 07/10/2021 HCT 47.9 07/10/2021 PLT 277 07/10/2021 NA 140 07/11/2021 CL 107 07/11/2021 K 4.0 07/11/2021 CO2 25 07/11/2021 BUN 9 07/11/2021 CREAT 1.01 07/11/2021 GLUCOSE 94 07/11/2021 AST 28 07/10/2021 ALT 31 07/10/2021 Discharge Exam: BP 127/83 (BP Location: Left arm, Patient Position (BP): Supine) Pulse 71 Temp 98.5 ??F (36.9 ??C) (Oral) Resp 18 Ht 6' (1.829 m) Wt 109.8 kg (242 lb) SpO2 100% BMI 32.82 kg/m?? Last documented weight: Weight: 109.8 kg (242 lb) (07/10/21 1635) Constitutional: Appears stated age HEENT: Head normocephalic, no lesions, without obvious abnormality Respiratory: Auscultation obtained with assistance of bedside examiner using stethoscope with Bluetooth technology. and Lungs are clear to auscultation with normal air movement, no wheezes, rhonchi, or rales. Cardiovascular: exam: Auscultation obtained with assistance of bedside examiner using stethoscope with Bluetooth technology., Regular rate and rhythm, no murmurs. and Extremities are without edema. Chest: No increased work of breathing., Chest wall is symmetric, without deformity, atraumatic. andIncreased work of breathing. GI: Auscultation obtained with assistance of bedside examiner using stethoscope with Bluetooth technology., Palpation evaluated with assistance of bedside examiner. and Nontender to palpation. Skin: No visible lesions or rashes. Musculoskeletal: No visible deformity or injury. Neurological: Neurologic exam performed with the assistance of the bedside examiner., Alert, oriented, normal speech. and No focal findings or movement disorder noted. Psychological: Oriented to time, place, and person., Mood and affect are appropriate in given situation. and Patient is a good historian; no memory problems noted. Discharge Condition: improving. Follow-up: You must follow up with Chirag Munroe MD in NO MORE THAN 5 DAYS. Signed: Sonali Elmore MD [facility] 07/11/2021, 4:33 PM documented in this encounter Discharge Instructions * Discharge Instructions* Sonali Elmore MD - 07/11/2021 5:11 PM CDT Your discharging physician is Sonali Elmore MD and may be reached at [phone] for any questions or concerns until you see your doctor. FOLLOW-UP Follow up with Chirag Munroe MD in 1 week(s). Prescriptions given? No SIGNS AND SYMPTOMS TO REPORT Contact your health care provider if you experience any of the following symptoms: increased dizziness or lightheadedness or increase in pain or any other concerning symptoms. Heart Patients: Weigh yourself everyday at the same time, with the same amount of clothing and after you have emptied your bladder. Keep a log of your daily weights and bring them with you to your physician appointments. Call your physician (*) if you have a weight gain of 3 pounds in one day (or 5pounds in 2+ days) or (*) if you have increased shortness of breath or (*) if you have swelling in your feet, belly or legs. <<<Call 911 or go to the nearest emergency room if you have increased shortness of breath or chest pain or discomfort that is not relieved by nitroglycerin. Smoking Exposure: [facility] encourages all patients to decrease risks associated with smoking and second hand smoke exposure. If you smoke you are advised to quit. Ask your health care provider for advice if you need assistance to stop smoking. Avoid second-hand smoke exposure and do not let people smoke in your home. Please call [phone], our pulmonary rehabilitation department, to learn more about options to reduce your risks. ACTIVITY Your activity level is: no smoking. You may return to work/school call if not improving. DIET Your diet is: regular WOUND CARE For your wound/incision: na. (You May Cut This Section Out to Present to Your Employer, It Serves as a Return to Work/School Statement) To Whom It May Concern: Work/School Release Manish Campbell was admitted to [facility] on 07/10/2021 and discharged on 07/11/2021 for a medical condition. He may return to work when cleared by his double end tenoner setter with no restrictions. Please feel free to call me with any questions. Sonali Elmore MD, [facility] documented in this encounter Medications at Time of Discharge Medication Sig Dispensed Refills Start Date End Date aspirin (ECOTRIN EC) 81 mg Tablet, Delayed Release (E.C.) Take 81 mg by mouth daily. documented as of this encounter Progress Notes * Kamille Drake NP - 07/10/2021 3:43 PM CDT [facility] NOTE 07/10/21 3:43 PM Contacted for: ED new admit request Vitals: 07/10/21 1356 Temp: 98.2 ??F (36.8 ??C) Pulse: 69 Heart Rate: 69 bpm BP: (!) 143/93 Resp: 16 SpO2: 99% Intervention/Follow up/Discussion: Patient with history of HTN. Presented to ED for chest pain since last night. EKG sinus rhythm withleft BBB - history of left BBB per history review, no acute ischemic changes. BL troponin 7. Ddimer0.37. Other labs unremarkable. CXR pending. BP (!) 143/93 (BP Location: Right arm, Patient Position (BP): Sitting) Pulse 69 Temp 98.2 ??F (36.8 ??C) (Oral) Resp 16 Ht 6' (1.829 m) Wt 105.2 kg (232 lb) SpO2 99% BMI 31.46 kg/m?? Agree with bridge observation unit admission for CP r/o and stress testing if troponins remain normal. Discussed with ED provider Dr. Deluca. Patient accepted on behalf of Dr. Elmore. Kamille Drake NP documented in this encounter H&P Notes * Kamille Drake NP - 07/10/2021 5:58 PM CDT [facility] ADMISSION This encounter was completed via two-way synchronous audio and video communication. Problem List: Principal Problem: Chest pain Active Problems: Benign hypertension Palpitations Assessment and Plan: 1) Chest pain: EKG sinus rhythm with left bundle branch block- patient reports history of LBBB. Baseline troponin 7. CXR negative for acute findings. D-dimer 0.37. -Chest pain pathway -Trend 2 in 6-hour troponin -NM stress as long as troponins remain normal and echocardiogram in AM -Continue daily 81 mg aspirin -Check A1c, TSH, lipid panel -Sublingual nitroglycerin as needed for chest pain -Monitor on telemetry 2) Palpitations: EKG sinus rhythm with LBBB. -Check TSH -Monitor on telemetry -Consider event monitor at discharge 3) Essential hypertension: BP has been controlled. No current home medications. -Monitor BP - Diet: DIET NPO Sips w/Meds, DIET CARDIAC Low Cholesterol (AHA),; 2GM Sodium (Low), - DVT Prophylaxis: Enoxaparin - Code Status: Full Code - Disposition: home once medically stable. - Primary Care Physician: Chirag Munroe MD __ Chief Complaint: Chest pain History of Present Illness: Manish Campbell is a 56 y.o. male who presents from home with left-sided chest pain that radiated to his neck and awoke him from sleep at approximately 2300 last evening. He reports associated diaphoresis, palpitations and headache associated with onset of symptoms. He reports he is still havingsome upper neck discomfort and a mild headache, however is not having any more chest discomfort at current. He denies prior cardiac history. He denies family cardiac history. He did have a nonischemic stress test in 2017. He denies fever, chills, shortness of breath, cough, congestion, sore throat,abdominal pain, nausea, vomiting, hematochezia, hematuria, dysuria, urinary urgency/frequency, dizzi ness, slurred speech, unilateral weakness, vision changes associated with onset of symptoms. ER course: Vital signs of been stable CXR: IMPRESSION: No radiographic evidence of acute pulmonary disease. EKG: Sinus rhythm, left bundle branch block. No acute ischemic changes Labs: WBC 6.4, H&H 16.7/47.9, NA 142, K4.2, creatinine 1.0/BUN 9, AST 28, ALT 3 1, troponin baseline 7, D-dimer 0.37 Past Medical History: Diagnosis Date ??? Chronic neck and back pain ??? HTN (hypertension) ??? Left bundle branch block Past Surgical History: Procedure Laterality Date ??? HX COLONOSCOPY W/ POLYPECTOMY ??? PT DENIES RELEVANT SURGICAL HISTORY Home Medication List: Prior to Admission Medications Prescriptions Last Dose Informant Patient Reported? Taking? aspirin (ECOTRIN EC) 81 mg Tablet, Delayed Release (E.C.) 07/10/2021 at Unknown time Yes Yes Sig: Take 81 mg by mouth daily. doxycycline calcium (VIBRAMYCIN) 50 mg/5 mL suspension Past Week at Unknown time Yes Yes Sig: Take by mouth every 12 hours. Facility-Administered Medications: None Allergies: No Known Allergies Family History Problem Relation Name Age of Onset ??? No Known Problems Father ??? No Known Problems Mother ??? No Known Problems Sister Social History Socioeconomic History ??? Marital status: Spouse name: Not on file ??? Number of children: Not on file ??? Years of education: Not on file ??? Highest education level: Not on file Occupational History ??? Not on file Tobacco Use ??? Smoking status: Former Smoker Years: 15.00 ??? Smokeless tobacco: Current User Types: Chew Vaping Use ??? Vaping Use: Never used Substance and Sexual Activity ??? Alcohol use: No ??? Drug use: No ??? Sexual activity: Yes Partners: Female Other Topics Concern ??? Not on file Social History Narrative ??? Not on file Social Determinants of Health Financial Resource Strain: Not on file Food Insecurity: Not on file Transportation Needs: Not on file Physical Activity: Not on file Stress: Not on file Social Connections: Not on file Intimate Partner Violence: Not on file Housing Stability: Not on file Review of Systems: Personally reviewed with patient. General: denies fevers, chills, fatigue HEENT: denies sore throat, nasal congestion, vision changes Respiratory: denies cough, shortness of breath, wheezing Cardiovascular: chest pain and palpitations Gastrointestinal: denies nausea, vomiting, abdominal pain Genito-urinary: denies dysuria, foul smelling urine, increased urinary frequency Musculoskeletal: denies myalgias, weakness, contractures Neurological: headache Dermatologic: denies skin lesions, ulcers, or rash Psychological: denies psychiatric problems, depression, anxiety Endocrine: denies polyuria, polydipsia, heat/cold sensitivity Hematologic/Lymphatic: denies swollen lymph nodes, bleeding disorder, clotting disorders Allergy/Immunology: denies seasonal allergies, food allergies, autoimmune disorders All other systems were reviewed and found to be negative. Physical Exam: Vitals: 07/10/21 1356 07/10/21 1635 BP: (!) 143/93 136/82 BP Location: Right arm Left arm Patient Position (BP): Sitting Sitting Pulse: 69 63 Resp: 16 14 Temp: 98.2 ??F (36.8 ??C) 98.7 ??F (37.1 ??C) TempSrc: Oral Oral SpO2: 99% 98% Weight: 105.2 kg (232 lb) 109.8 kg (242 lb) Height: 6' (1.829 m) 6' (1.829 m) Body mass index is 32.82 kg/m??. Vitals reviewed. Constitutional: Appears stated age HEENT: Head normocephalic, no lesions, without obvious abnormality Respiratory: Auscultation obtained with assistance of bedside examiner using stethoscope with Bluetooth technology. and Lungs are clear to auscultation with normal air movement, no wheezes, rhonchi, or rales. Cardiovascular: exam: Auscultation obtained with assistance of bedside examiner using stethoscope with Bluetooth technology. and Regular rate and rhythm, no murmurs. Chest: No increased work of breathing. and Chest wall is symmetric, without deformity, atraumatic. GI: Auscultation obtained with assistance of bedside examiner using stethoscope with Bluetooth technology., Palpation evaluated with assistance of bedside examiner., Nontender to palpation. and Bowelsounds are present. Skin: No visible lesions or rashes. Musculoskeletal: No visible deformity or injury. Neurological: Neurologic exam performed with the assistance of the bedside examiner., Alert, oriented, normal speech. and No focal findings or movement disorder noted. Psychological: Oriented to time, place, and person., Mood and affect are appropriate in given situation. and Patient is a good historian; no memory problems noted. Labs/Imaging/Cardiac Studies: Results for orders placed or performed during the hospital encounter of 07/10/21 (from the past 24 hour(s)) CBC WITH DIFFERENTIAL Result Value Ref Range WBC 6.4 4.0 - 9.8 K/uL RBC 5.34 4.50 - 5.40 M/uL HEMOGLOBIN 16.7 (H) 13.6 - 16.5 g/dL HEMATOCRIT 47.9 40.0 - 48.0 % MCV 89.7 82.0 - 99.0 fL MCH 31.3 27.2 - 32.6 pg MCHC 34.9 31.5 - 35.5 g/dL RDW 11.8 11.5 - 14.5 % RDW-STDEV 38.6 37.1 - 48.7 fL PLATELETS 277 140 - 350 K/uL MPV 9.6 9.3 - 12.4 fL NEUTROPHILS 67 % LYMPHOCYTES 23 % MONOCYTES 8 % EOSINOPHILS 1 % BASOPHILS 0 % IMMATURE GRANULOCYTES 0 % NEUTROPHIL ABSOLUTE 4.26 1.90 - 7.00 K/uL LYMPHOCYTE ABSOLUTE 1.48 0.70 - 4.50 K/uL MONOCYTE ABSOLUTE 0.53 0.10 - 1.30 K/uL EOSINOPHIL ABSOLUTE 0.04 0.00 - 0.70 K/uL BASOPHILS ABSOLUTE 0.02 0.00 - 0.20 K/uL IMMATURE GRANULOCYTES ABSOLUTE 0.02 0.00 - 0.03 K/uL COMPREHENSIVE METABOLIC PANEL Result Value Ref Range SODIUM 142 136 - 145 mmol/L POTASSIUM 4.2 3.5 - 5.0 mmol/L CHLORIDE 106 98 - 107 mmol/L CO2 26 22 - 29 mmol/L CALCIUM 9.9 8.6 - 10.2 mg/dL BUN 9 6 - 20 mg/dL CREATININE 1.04 0.67 - 1.17 mg/dL GLUCOSE 101 (H) 74 - 99 mg/dL TOTAL PROTEIN 7.3 6.7 - 8.6 g/dL ALBUMIN 4.5 3.5 - 5.2 g/dL BILIRUBIN TOTAL 0.7 0.3 - 1.2 mg/dL ALKALINE PHOSPHATASE 48 40 - 129 U/L AST 28 <41 U/L ALT 31 <42 U/L GFR >60 >=60 mL/min/1.73 sq meter ANION GAP 10 8 - 16 mmol/L TROPONIN BASELINE, 5TH GEN Result Value Ref Range TROPONIN T, BASELINE 5TH GEN 7 <=15 ng/L D-DIMER Result Value Ref Range D-DIMER QUANT 0.37 <0.42 ug/mL FEU ECG personally reviewed: Sinus rhythm, left bundle branch block. Chest X-ray personally reviewed:normal Other imaging personally reviewed: none Kamille Drake NP 07/10/2021 Associated attestation - Sonali Elmore MD - 07/10/2021 7:01 PM CDT [facility] Adult Hospitalist Attending Attestation This encounter was completed via two-way synchronous audio and video communication. I independently saw and examined the patient, reviewed all pertinent available old records and admission data and discussed the case with the Advanced Practice Provider. I agree with the medical decision making documented and edited it based on my findings. Physical Exam: Vitals: 07/10/21 1356 07/10/21 1635 Temp: 98.2 ??F (36.8 ??C) 98.7 ??F (37.1 ??C) Pulse: 69 63 Heart Rate: 69 bpm 63 bpm BP: (!) 143/93 136/82 Mean Arterial Pressure: 95 MM HG Resp: 16 14 SpO2: 99% 98% Body mass index is 32.82 kg/m??. Vitals reviewed. Constitutional: Appears stated age HEENT: Head normocephalic, no lesions, without obvious abnormality Respiratory: Auscultation obtained with assistance of bedside examiner using stethoscope with Bluetooth technology. and Lungs are clear to auscultation with normal air movement, no wheezes, rhonchi, or rales. Cardiovascular: exam: Auscultation obtained with assistance of bedside examiner using stethoscope with Bluetooth technology., Regular rate and rhythm, no murmurs. , and Extremities are without edema. Chest: No increased work of breathing. and Chest wall is symmetric, without deformity, atraumatic. GI: Auscultation obtained with assistance of bedside examiner using stethoscope with Bluetooth technology., Palpation evaluated with assistance of bedside examiner., Nontender to palpation. , and Bowel sounds are present. Skin: No visible lesions or rashes. Musculoskeletal: No visible deformity or injury. and Full range of motion without pain. Neurological: Neurologic exam performed with the assistance of the bedside examiner., Alert, oriented, normal speech., and No focal findings or movement disorder noted. Psychological: Oriented to time, place, and person., Mood and affect are appropriate in given situation., and Patient is a good historian; no memory problems noted. Data: I have reviewed the labs that were obtained since the patient's arrival and any relevant historicaldata which is available from previous encounters. Active Problem List: Principal Problem: Chest pain Active Problems: Benign hypertension Palpitations Assessment and Plan: Atypical CP, has had this worked up 2x before and patient reports it is similar. Before he related it to stress. He has had negative echos/stress in the past and f/u with cardiology. He does have LBBB - Trend trops, ECG again showing LBBB - Echo - NM stress in the am I have personally reviewed all issues discussed in Kamille Fair s note; there are no modifications to the assessment and plan unless otherwise noted. Please see Kamille Fair note for further details. Sonali Elmore MD Adult Hospitalist Physician [facility] documented in this encounter Procedure Notes * Una Triana RN - 07/11/2021 10:46 AM CDT Images from the original note were not included. Facility Name(s): [facility] Policy / Procedure: ST DCS Lexiscan Test Protocol Approved by: [facility] - Medical Executive Committee Date: 11/23/2020 ORDERS ARE ENTERED ???PER PROTOCOL?? Enter the protocol in the patient's electronic health record using smartphrase: .lexiscanprotocol Nursing Communication Orders: Prior to testing and During test: o If not already initiated, insert 24-18 gauge peripheral IV to Saline lock with an extension set. o Prep patient's chest using skin prep and place electrodes on patient. Patients with excessive chest hair may require shaving. o Continuous cardiac monitoring with BP and 12-Lead EKG every minute during the test. Recovery Period o Continuous EKG monitoring, BP and 12-Lead EKG every two (2) minutes post Lexiscan. Following this, observe without EKG monitoring until any symptoms resolve. o If during recovery the patient experiences severe headache, nausea/vomiting, severe abdominal pain, notify the physician to obtain an order for Aminophylline. Once administered, observe patient until complaint of symptoms resolve. Medication Orders: o Sodium chloride 0.9% (normal saline) flush 5 mLs PRN for saline lock or medication administration. o Lexiscan Test - Administer the following in the order listed: 1. Lexiscan (regadenosine) 0.4 mg IV over approximately ten (10) seconds, one time. 2. Flush with 5 mLs of Sodium Chloride 0.9% immediately after the injection of Lexiscan 3. Sketch Maker to administer the radionuclide myocardial perfusion imaging agent 10-20 seconds after the saline flush. o Aminophylline 100mg IV PRN one time only, for side effects of Lexiscan administration: nausea, vomiting, chest pain, shortness of breath, blood pressure with systolic <90, headache, blurred vision, abdominal cramping, tachycardia, dizziness, or numbness to extremities. * Rupal Pearl RDCS - 07/11/2021 9:07 AM CDT Images from the original note were not included. Diluted bolus, pt tolerated well. STL DCS Definity Protocol [facility] Approved by: [facility] - Medical Executive Committee Approval Date: 10/27/2020 ORDERS ARE ENTERED ???PER PROTOCOL?? Enter the protocol in the patient's electronic health record using smartphrase: .definityprotocol Diagnostic Test Orders: 1. Verify patient does not meet any of these exclusion criteria ??? Allergy or hypersensitivity to Definity or octafluoropropane ??? Is or nursing 2. If patient states yes to any exclusion criteria, STOP THE PROCEDURE and annotate exam accordingly 3. Patient meets at least one of these inclusion criteria ??? Credentialed provider request ??? Patient is technically difficult to image ([place] [employer]ocardi[employer] guidelines of 2or more segments within the apical/parasternal short axis views are not discernable) ??? The question of left ventricular function has been raised and/or suspicion for estimated ejection fraction being less than 35 percent regardless of image quality ??? Furthermore, Definity use is strongly recommended by the ASE, when visualization of the endocardium is critical, particularly for use with stress echocardiography 4. Educate patient or responsible libertarian on Definity indications and side effects. 5. Have emergency equipment available 6. Definity may be ordered by a credentialed provider, RN or craps dealer 7. Enter Definity medication order per protocol and document using smartphrase .definityprotocol 8. Change procedure order to include contrast 9. Verify peripheral or central line IV access. If IV access is not available, then a trained craps dealer wire wrapping machine operator may place peripheral IV access as appropriate for medication administration and follow Adult Flush Protocol. NOTE: Do NOT access dialysis catheter or arterial line catheter. 10. Activate Definity using the VialMix machine: o Vial of Definity should be vented prior to withdrawing medication o Dilute the Definity in a syringe with 8.7 ml Normal Saline to make 10 ml o Administer Definity in small increments as needed to enhance visualization up to a total of 10 mlof the diluted Definity o Definity vials may require resuspension and/or reactivation (see image below for further information) 11. RN or trained craps dealer may discontinue peripheral IV access when IV no longer required for treatment Medication Orders: ? Perflutren Lipid microspheres (DEFINITY) 1.1 mg/mL injection, 2mL given IV intra-procedure, one time use only. DEFINITY?? Activation/Reactivation1,6 ??? If activated vial is not used within 5 minutes, resuspend with 10 seconds of hand agitation prior to use. DEFINITY?? may be used for up to 12 hours after activation with VIALMIX??1 ??? If not used within 12 hours, vial may be returned to refrigeration and reactivated once with VIALMIX?? within 24 hours6 ??? Reactivated DEFINITY?? may be used for up to 12 hours1,6 documented in this encounter ED Notes * Maricruz Contreras RN - 07/10/2021 2:35 PM CDT Patient/family has been informed about benefits and any potential clinically significant side effects or other concerns regarding the administration of the drug they have just been given. * Maricruz Contreras RN - 07/10/2021 2:25 PM CDT Provider at bedside. * Maricruz Contreras RN - 07/10/2021 2:00 PM CDT Pt to ED via EMS with C/O chest pain. Pt AXO X4; pt reports chest discomfort and pressure during the night that woke him up out of his sleep, pt reports he got up and took an ASA and checked his BP at home and it was high and HR was high and came down during the morning with monitoring. Pt report oxygen was low in mid 70's and 80's +MACHADO +discomfort and tightness in upper back/shoulders and neck. -thinner. Pt placed on bedside monitoring. Call light within reach. * Bell Deluca MD - 07/10/2021 1:47 PM CDT HISTORY OF PRESENT ILLNESS Manish Campbell, a 56 y.o. male presents to the ED with a Chief Complaint of Chest Pain Subjective Documented Triage Chief Complaint: Chest Pain 2:25 PM: Manish Campbell is a 56 y.o. male with a history of HTN and LBBB, who presents for chest pain. Last night at 11 PM, patient woke from sleep due to chest pressure and headache. Patient took an aspirin and checked his blood pressure and oxygen levels to find high blood pressure and normal oxygenlevels. His blood pressure eventually came back down, but he states he noticed that his oxygen levels dropped into the high 70s to low 80s. He took a home COVID test, which was negative. Today, patient was still experiencing chest pressure, dull headache, fatigue, and pain across his back between his shoulder blades. Denies chest pressure on exam here. Former smoker, though he states it was never a habit . No history of diabetes. No family history of cardiac disease. Onset: gradual Severity: moderate Duration: since 11 PM last night Frequency/Progression: improved at this time Quality: dull, aching, pressure Radiation: none Modifiers: none Associated symptoms: see above Primary Care Doctor: Chirag Munroe MD History provided by: The patient Arrived by: EMS The history is provided by the patient. The patient arrived by EMS. REVIEW OF SYSTEMS Review of Systems Constitutional: Positive for fatigue. Respiratory: Positive for chest tightness. Cardiovascular: Positive for chest pain. Gastrointestinal: Negative for nausea. Neurological: Positive for headaches. All other systems reviewed and are negative. PAST MEDICAL HISTORY REVIEWED MEDICAL: Patient has a past medical history of Chronic neck and back pain, HTN (hypertension), and Left bundle branch block. SURGICAL: Patient has a past surgical history that includes pt denies relevant surgical history and colonoscopy w/ polypectomy. FAMILY: Patient's family history includes No Known Problems in his father, mother, and sister. SOCIAL: reports that he has quit smoking. He quit after 15.00 years of use. His smokeless tobacco use includes chew. He reports being sexually active and has had partner(s) who are female. He reports that hedoes not drink alcohol and does not use drugs. No history on file. Social History Other Topics Concern ??? Not on file ALLERGIES Patient has no known allergies. HOME MEDICATIONS Current Discharge Medication List CONTINUE these medications which have NOT CHANGED Details doxycycline calcium (VIBRAMYCIN) 50 mg/5 mL suspension Take by mouth every 12 hours. aspirin (ECOTRIN EC) 81 mg Tablet, Delayed Release (E.C.) Take 81 mg by mouth daily. Objective PHYSICAL EXAM INITIAL VS BP: (!) 143/93 (07/10/211355), Heart Rate: 69 bpm (07/10/211355), Resp: 16 (07/10/211355), Pulse: 69 (07/10/211355), Temp: 98.2 ??F (36.8 ??C) (07/10/211355), Temp src: Oral (07/10/211355), SpO2: 99 % (07/10/211355), Height: 6' (182.9 cm) (07/10/211355), Weight: 105.2 kg (232 lb) (05/02/22 1356), BMI (Calculated): 31.46 (07/10/21 1356) No LMP for male patient. Physical Exam Vitals and nursing note reviewed. Constitutional: General: He is not in acute distress. HENT: Head: Normocephalic and atraumatic. Eyes: General: No scleral icterus. Pupils: Pupils are equal, round, and reactive to light. Cardiovascular: Rate and Rhythm: Normal rate and regular rhythm. Heart sounds: No murmur heard. Pulmonary: Effort: No respiratory distress. Breath sounds: Normal breath sounds. Chest: Chest wall: No tenderness. Abdominal: General: There is no distension. Palpations: Abdomen is soft. Tenderness: There is no abdominal tenderness. There is no guarding or rebound. Musculoskeletal: General: No deformity. Normal range of motion. Cervical back: Normal range of motion and neck supple. Skin: General: Skin is warm and dry. Findings: No rash. Neurological: General: No focal deficit present. Mental Status: He is alert. Mental status is at baseline. Sensory: No sensory deficit. Psychiatric: Judgment: Judgment normal. DIAGNOSTICS LAB: CBC WITH DIFFERENTIAL - Abnormal Result Value WBC 6.4 RBC 5.34 HEMOGLOBIN 16.7 (*) HEMATOCRIT 47.9 MCV 89.7 MCH 31.3 MCHC 34.9 RDW 11.8 RDW-STDEV 38.6 PLATELETS 277 MPV 9.6 NEUTROPHILS 67 LYMPHOCYTES 23 MONOCYTES 8 EOSINOPHILS 1 BASOPHILS 0 IMMATURE GRANULOCYTES 0 NEUTROPHIL ABSOLUTE 4.26 LYMPHOCYTE ABSOLUTE 1.48 MONOCYTE ABSOLUTE 0.53 EOSINOPHIL ABSOLUTE 0.04 BASOPHILS ABSOLUTE 0.02 IMMATURE GRANULOCYTES ABSOLUTE 0.02 COMPREHENSIVE METABOLIC PANEL - Abnormal SODIUM 142 POTASSIUM 4.2 CHLORIDE 106 CO2 26 CALCIUM 9.9 BUN 9 CREATININE 1.04 GLUCOSE 101 (*) TOTAL PROTEIN 7.3 ALBUMIN 4.5 BILIRUBIN TOTAL 0.7 ALKALINE PHOSPHATASE 48 AST 28 ALT 31 GFR >60 ANION GAP 10 TROPONIN BASELINE, 5TH GEN - Normal TROPONIN T, BASELINE 5TH GEN 7 D-DIMER - Normal D-DIMER QUANT 0.37 RADIOLOGY: XR CHEST PA OR AP 1 VW Radiologist Impression IMPRESSION: No radiographic evidence of acute pulmonary disease. DICTATION LOCATION: Location 1 - [facility] EKG: Sinus rhythm with rate in the 60s, likely branch block noted. No STEMI. PROCEDURES Procedures MEDICAL DECISION MAKING AND PLAN OF CARE --upon initial evaluation, patient was seen and examined by me. Discussed with patient plan to obtain labs and EKG for further evaluation. Will give NS bolus. Patient is agreeable with this plan. 3:46 PM: Discussed with SITA Simental for [facility], who agrees with admission to [facility] ED provider and ED nurse verbally discussed patient plan of care at this time. MDM Summary Statement: Patient is a 56-year-old male multiple cardiac risk factors who presents emerged department for evaluation of chest discomfort. Initial EKG and troponins are nondiagnostic. Plan admission for continued cardiac work-up and further evaluation. I have reviewed previous: notes I have reviewed current: labs, ECG and imaging I have reviewed nursing notes related to past medical history, social history, and review of systems and agree, unless otherwise noted. Consults: hospitalist Medications Administered During the ED Stay from 07/10/2021 1347 to 07/10/2021 1632 Date/Time Order Dose Route Action 07/10/2021 1515 sodium chloride 0.9% bolus solution 1,000 mL 0 mL IV Stopped 07/10/2021 1445 sodium chloride 0.9% bolus solution 1,000 mL 1,000 mL IV New Bag Current Discharge Medication List CONTINUE these medications which have NOT CHANGED Details doxycycline calcium (VIBRAMYCIN) 50 mg/5 mL suspension Take by mouth every 12 hours. aspirin (ECOTRIN EC) 81 mg Tablet, Delayed Release (E.C.) Take 81 mg by mouth daily. LAST VS BP: 127/77 (07/10/211931), Heart Rate: 63 bpm (07/10/21 1635), Resp: 16 (07/10/211931), Pulse: 66 (07/10/211931), Temp: 98.6 ??F (37 ??C) (07/10/211931), Temp src: Oral (07/10/211931), SpO2: 98 % (07/10/211931) CLINICAL IMPRESSION Final diagnoses: [R07.9] Chest pain, unspecified type (Primary) [I44.7] LBBB (left bundle branch block) DISPOSITION, EDUCATION AND MEDICATION RECONCILIATION Medications reconciled. See after visit summary for patient education on discharged patients. ED Disposition ED Disposition Condition User Date/Time Comment Admit Stable Bell Deluca MD Mon July 10, 2021 3:38 PM ATTESTATION STATEMENTS This note has been prepared by Lisa Hamlin and Lorena Lopez acting as scribes for Dr. Oskar Deluca on 07/10/2021 at 6:14 PM. The scribe's documentation has been prepared under my direction and personally reviewed by me, Dr. Deluca, in its entirety on 07/10/21 at 7:44 PM. I confirm that the note above accurately reflects all work, treatment, procedures, and medical decision making performed by me. documented in this encounter Miscellaneous Notes * Care Plan - Lorena Correa RN - 07/11/2021 11:23 AM CDT Clinical documentation reviewed. Comprehensive Discharge Planning Risk Assessment was completed. Readmission Risk (patient becomes high risk with a score of 8 or greater) 0 Total Score Total Score of 9 or below does not identify immediate needs for discharge. Age Score: 4 Disability Score: 0 Prior Living Status Score: {0 Mobility Limitation Score: 0 TOTAL SCORE: 4 PCP verified as Chirag Munroe MD. Patient's insurance verified as Payor: BLUE CROSS AND BLUE SHIELD / Plan: BCBS BLUE ACCESS/TRUE BLUE PPO / Product Type: PPO / . Please place consult if needs for discharge are identified. Care Management will continue to follow for discharge planning. Lorena Correa RN, MSN, [place], [facility] Inpatient Change Attendant [phone] E-mail: [email or web address] * Treatment Plan - Lloyd Bangura CNMT - 07/11/2021 9:24 AM CDT Images from the original note were not included. STL IMS NM Medication and Flush Protocol [facility] Approved by: [facility] - Medical Executive Committee Approval Date: 05/25/2021 ORDERS ARE ENTERED ???PER PROTOCOL?? Enter the protocol in the patient's electronic health record using smartphrase: .imagingnucmedicineprotocol Communication Orders: ??? For ordered imaging procedures requiring intravenous access: ??? Initiate a peripheral IV, if not already in place, and discontinue IV prior to discharge (if outpatient). ??? Enter order if needed: Insert Peripheral IV Medication Orders: o Local Anesthetic for use to initiate IV ADULT ??? Lidocaine 4% (L.M.X.4) applied topically ONE TIME prior to IV catheter insertion PRN (L.M.X.4 %should be applied 15 minutes prior to procedure) ??? Chart RBCTAGGINGSTL and/or WBCTAGGINGSTL smartphrase as appropriate PEDIATRIC ??? Lidocaine 4% (L.M.X.4) applied topically ONE TIME prior to IV catheter insertion PRN (apply 15 minutes prior to procedure) ??? Sucrose 24% (Tootsweet; Sweet-Ease) oral solution 0.2 mL oral (apply to tongue on pacifier or clean, gloved finger), ONE TIME 2 minutes prior to painful procedure. May repeat dose x1 PRN to complete procedure. o Sodium chloride 0.9% (normal saline) flush 10 mL PRN for saline lock or medication administration. o For respiratory distress, initiate oxygen and/or increase O2 to maintain saturation greater than 90% Procedure Specific Medications: Adult Procedures & Dosages: o Note: Radiopharmaceuticals dosages with a range are determined by rn correctional calibration o Note: In acute Tc99m shortages, radiopharmaceutical dosages may be decreased with approval and documentation within department from medical billing and coding specialist/AU. o Note: Hybrid SPEC/CT imaging used as appropriate for exam and/or as directed by Radiologist PROCEDURE DOSAGE Bone Marrow Imaging Wo96w-Ufliyyxt Sulfur Colloid (Vwxeneolaz35y- filtered sulfur colloid), Administer 8mCi, IV, ONE TIME. Bone Scan Imaging (Whole Body, Limited, 3-Phase, or SPECT) Er13p-WEW (Aqscrcheil69p-xrbrhsbzm diphosphonate), Administer 25mCi, IV, ONE TIME. OR Cb82w-IPY (Sazkrccsaa63m-vffmgxowgmqlyvno diphosphonate), Administer 25mCi, IV, ONE TIME. Brain Imaging Gp86n-JPZE (Nhibufirbp15k-aqfgquyujq-yqifagio-hwoiqqiuqgmi), Administer 20mCi, IV, ONE TIME. Brain SPECT Imaging Wp66t-LUFUV (Ceretec) (Udmmypxzbn06i-mscnldyejicgfmdoous amine oxime), Administer 20mCi, IV, ONE TIME. OR Tl-201 (Thallium Chloride-201), Administer 6mCi, IV, ONE TIME. C14 Urea Breath Test (PY Test) P81-Jlph (Carbon-14 Urea), Administer 1uCi capsule, Orally, ONE TIME. Cisternogram Imaging In-111 DTPA (Indium-111 aerpjoegfc-hynainyy-hsshzlycsljg), Neuroradiologist toadminister 0.5mCi, Intrathecally, ONE TIME. Cystogram Imaging Tc-99m Pertechnetate (Gsewooowsx59u-dkruikkkggktt) Administer 1mCi My98s-mrjojcfkwzbci, intra-prasad catheter, ONE TIME AND Administer NS per calculated expected bladder volume, intra-prasad catheter, ONE TIME. DaTscan Imaging I-123 Ioflupane (Iodine-123 ioflupane), Administer 5mCi, IV, ONE TIME. AND Administer SSKI (Potassium Iodide) drops, 130mg, Orally, ONE TIME 30 minutes prior to radiopharmaceutical injection. Diverticulum/Meckel's Imaging Tc-99m Pertechnetate (Nlymgbdliq72b- pertechnetate), Administer 15mCi,IV, ONE TIME. Esophageal Reflux Imaging Bc78e-Ezcfoh Colloid (Qqecvkslie39h-tubzpn colloid), Administer 1mCi in 1oz whole milk. Follow with additional 7oz whole milk, Orally, ONE TIME. Ga-67 Citrate - Planar Imaging Ga-67 Citrate (Gallium-67 Citrate), Administer 5mCi, IV, ONE TIME. Ga-67 Citrate - SPECT Imaging Ga-67 Citrate (Gallium-67 Citrate), Administer 10mCi, IV, ONE TIME. Gastric Empty Imaging - Liquid Meal Bq03p-TLGG (Tjdxlkpzti18l-qplaeeezny-ndlssycg-dsgtbufjpgb), Administer 1mCi in 300mL tap water, Orally, ONE TIME. Gastric Empty Imaging - Solid Meal Nk55l-Ssbznn Colloid (Cpsjgjcvof01n-esbucz colloid), Administer 0.5mCi in 4 oz egg beaters or in 1 package of cooked instant oatmeal, Orally, ONE TIME. GI Bleed Imaging (GI Blood Loss) Tc-99m Pertechnetate (Qeioihtspx74p- pertechnetate), Administer 22mCi heparinized RBCs, IV, ONE TIME. Hepatic Blood Pool Imaging Tc-99m Pertechnetate (Amznqztktx05q-dkfddarmupodj), Administer 22mCi heparinized RBCs, IV, ONE TIME. Hepatic Hemangioma Imaging Tc-99m Pertechnetate (Vmjzjofznt13h-ihqlhjxinvoon), Administer 22mCi heparinized RBCs, IV, ONE TIME. Hepatobiliary Scan Imaging Tc-99m Mebrofenin (Usszizeevd27o-fioahwqauf), Administer 5 mCi IV, ONE TIME *For inpatients only, if bilirubin >5mg/dL, Administer 8 mCi IV, ONE TIME *For inpatients only, if bilirubin > 8mg/dL, consult nuclear medicine physician prior to administering radiopharmaceutical Hepatobiliary Scan with Ejection Fraction Imaging Tc-99m Mebrofenin (Pnsnjvsctr53v-hprpsbplfp), Administer 5 mCi IV, ONE TIME. *For inpatients only, if bilirubin >5mg/dL, Administer 8 mCi IV, ONE TIME *For inpatients only, if bilirubin > 8mg/dL, consult nuclear medicine physician prior to administering radiopharmaceutical AND For immediate use - Sincalide (Kinevac) 0.02 mcg/kg IV, ONE TIME, diluted with NS to a total infused volume of 30 mL. Infuse via an infusion device over 30 minutes. *If Sincalide unavailable, 240mL (8oz) Ensure Plus, Orally, ONE TIME. Hepatobiliary Scan with Pre-Treatment Imaging Tc-99m Mebrofenin (Njaqhmzodm63c- mebrofenin), Administer 5 mCi IV, ONE TIME. *For inpatients only, if bilirubin >5mg/dL, Administer 8 mCi IV, ONE TIME *For inpatients only, if bilirubin > 8mg/dL, consult nuclear medicine physician prior to administering radiopharmaceutical AND For immediate use - Sincalide (Kinevac) 0.01 mcg/kg IV, ONE TIME, diluted with NS to a total infused volume of 5 mL, Infuse via hand push over 5 minutes. In-111 Dual Isotope Imaging In-111 Oxine (Indium-111 Oxine), Administer at least 300uCi, up to 600uCi, heparanized WBC, IV, ONE TIME. AND Bd69c-TSI (Rljmflygyz97v-qlchwodis diphosphonate), Administer 20mCi for BMI < 35; Administer 25 mCi for BMI >= 35, IV, ONE TIME. OR In-111 Oxine (Indium-111 Oxine), Administer at least 300uCi, up to 600uCi, heparanized WBC, IV, ONETIME. AND Lp62b-Nvtfjthr Sulfur Colloid (Jdroslyjkv51l-dnwpargg sulfur colloid), Administer 8mCi, IV, ONE TIME. In-111 WBC Imaging In-111 Oxine (Indium-111 Oxine), Administer at least 300uCi, up to 600uCi, heparanized WBC, IV, ONE TIME. Liver/Spleen Imaging Yc96x-Fttpcr Colloid (Vgjaeetuko07u-krehye colloid), Administer 5mCi, IV, ONE TIME. Lung Aerosol Perfusion Imaging Tc-99m MAA (Vrscfrnmfh00s-mktlaonmfmuiawj albumin), Administer 5mCi,IV, ONE TIME. Lung Xenon Perfusion Imaging (normal or quantitative) Tc-99m MAA (Hwvgfkbiow62t- macroaggregated albumin), Administer 4mCi, IV, ONE TIME. Lung Aerosol Ventilation Imaging Gn70y-YXTY (Pngnmdrupz45d-syqembkjuh-hhouchul-iakuwbudmfol), Administer 40mCi in 2mL NS via aerosol delivery device, Inhalation, ONE TIME. Lung Xenon Ventilation Imaging (normal or quantitative) Xe-133 (Xenon-133), Administer at least 10 mCi, up to 30 mCi, Inhalation, ONE TIME. Lung Perfusion Imaging (normal or quantitative) Tc-99m MAA (Jjcimnopyv82j- macroaggregated albumin),Administer 4mCi, IV, ONE TIME. Lung Perfusion SPECT Imaging Tc-99m MAA (Szutghhgai00z-zhxuhjjgclsigwl albumin), Administer 4mCi, IV, ONE TIME Lung Perfusion Imaging - Patient (normal or quantitative) Tc-99m MAA (Dkxlrratqz09q-yracydmqwqsshal albumin), Administer 2mCi, IV, ONE TIME. Lymphoscintigraphy - Breast Cancer, Next Day Surgery Qx96i-Qkhslghnqq (Iqjbiyebxm60r-iyotrpopsx), Administer 2mCi in 2 divided doses of 1mCi each, intradermal, ONE TIME. Lymphoscintigraphy - Breast Cancer, Same Day Surgery Le70a-Pxtctecswr (Tnqbzjbopp14w-xmjqehcoqh), Administer 0.5mCi in 2 divided doses of 250uCi each, intradermal, ONE TIME. Lymphoscintigraphy - Lymphedema Kp07y-Bvkafruqfh (Rkbfutaeqs29x-lojcojujpf), For each extremity, administer 2mCi in 2 divided doses of 1mCi each, subcutaneous, ONE TIME. Lymphoscintigraphy - Head & Neck Cancer, Next Day Surgery Am43n-Suqsajnbvd (Kcsmlkhgoa73h-avypwiowtg), Administer 2mCi in 2 divided doses of 1mCi each, intradermal, ONE TIME. Lymphoscintigraphy - Head & Neck Cancer, Same Day Surgery Vw00b-Ttmqsydapk (Ypwubcqpxv93b-htnbbbcayq), Administer 0.5mCi in 2 divided doses of 250uCi each, intradermal, ONE TIME. Lymphoscintigraphy - Skin Cancer, Next Day Surgery Pi59m-Yvrpcmnemu (Knshjgyzdu68a-lzhpgwqwsv), Administer 2mCi in 4 divided doses of 0.5mCi each, intradermal, ONE TIME. Lymphoscintigraphy - Skin Cancer, Same Day Surgery Cf61v-Jcivoiczhm (Ocsqxsolcg35q-ymzmxqekhy), Administer 0.5mCi in 4 divided doses of 125uCi each, intradermal, ONE TIME. Lymphoscintigraphy - Skin Cancer, Small Body Area, Next Day Surgery Tc99m- Lymphoseek (Gvhxcanagf77s-evkdoswrkf), Administer 2mCi in 2 divided doses of 1mCi each, intradermal, ONE TIME. Lymphoscintigraphy - Skin Cancer, Small Body Area, Same Day Surgery Tc99m- Lymphoseek (Hyijmcqgzp92a-acvqggjvor), Administer 0.5mCi in 2 divided doses of 250uCi each, intradermal, ONE TIME. Lymphoscintigraphy - Vulvar Melanoma Next Day Surgery Xn83g-Jyxinmuwel (Dlbafnocgw39a-zgjqozwtse), Administer 2mCi in 1 dose, intradermal, ONE TIME. Lymphoscintigraphy - Vulvar Melanoma, Same Day Surgery Fn34g-Jpvrjoquvr (Wbbszzavfu67h-eybtstduzv),Administer 0.5mCi in 1 dose, intradermal, ONE TIME. MIBG Imaging I-123 MIBG (Iodine-123 metaiodobenzylguandidine), Administer 10mCi, IV, ONE TIME. AND Administer SSKI (Potassium Iodide) drops, 130mg, Orally, ONE TIME 30 minutes prior to radiopharmaceutical injection. Microsphere Mapping (Y90 Mapping) Tc-99m MAA (Jzlvtekjfx10j-xpmsdiqiuimchcm albumin), Interventional Radiologist to administer (1) 2mCi in in 2mL NS, intra- arterial via catheter, ONE TIME. OR Tc-99m MAA (Gtmrsdhfms75y-hdihsmtcxxppphl albumin), Interventional Radiologist to administer (2) 2mCi in in 2mL NS, intra-arterial via catheter, ONE TIME. MUGA/RVG Imaging Tc-99m Pertechnetate (Ikwuhqvwuk71e-lqdnbimfczdlw), Administer 22mCi heparinized RBCs, IV, ONE TIME. Myocardial Amyloid Scintigraphy (Hot PYP Scan) Xx78y-VEP (Jftcmjjfxp40j- pyrophosphate), Administer 15mCi, IV, ONE TIME. Myocardial Dual Isotope Imaging Tl-201 (Thallium Chloride-201) AND Sn03g-Usjgcfh (Onutyhsxmk20h-lrwsukx), Administer 3mCi Tl-201for resting images, IV, ONE TIME AND Administer Hn20n-Gkignjy (Pamljwzrvs06z-erlbpgp), for stress images based on patient's weight, IV, ONE TIME. Male or Female Patients: <180lbs: 12mCi Male or Female Patients: 181-240lbs: 15mCi Female Patients 241-265lbs: 18mCi Male Patients 241-330lbs: 18mCi Female Patients >265lbs: 24mCi Male Patients >330lbs: 24mCi Myocardial Planar Imaging (for patients >= table weight limit) Yk95m-Axntfcv (Ehffmjwtsh73z-Fsivcvg), Administer 30mCi, IV, ONE TIME for rest images, ONE TIME for stress images. Myocardial Rest Imaging - SPECT Imaging Tl-201 (Thallium Chloride-201), Administer 4mCi, IV, ONE TIME. OR Bz33a-Idfzlwa (Tmprljatrt38y-Poummor), Administer 6mCi for female patients ?? 264 lb., IV, ONE TIME. OR Sq92j-Ldngpcz (Skujrhiftz72f-Fadinvw), Administer 6mCi for male patients ?? 329 lb., IV, ONE TIME. OR It66h-Ofqrljw (Zirtcraykz11p-Mqksjdg), Administer 8mCi for female patients >= 265-399 lb., IV, ONE TIME. OR Fj14x-Toswfsu (Knqbozsiml21q-Xozxinb), Administer 8mCi for male patients >= 330- 399 lb., IV, ONETIME. OR Th73l-Rnkmwzt (Qdtoamnffx58l-Sfwqjya), Administer 10mCi for all patients >= 400- 500 lb., IV, ONETIME. Myocardial Stress - SPECT Imaging Bj10i-Zcptxqk (Ubzkkuimdo81a-Vxswkes), Administer 18mCi for female patients ?? 264 lb., IV, ONE TIME. OR Tt56q-Blohvlv (Oxurrehmsj27o-Wdmmpuc), Administer 18mCi for male patients ?? 329 lb., IV, ONE TIME. OR Aq09n-Jlnodfm (Gakmfqozrj56r-Wlvmtfh), Administer 24mCi for female patients >= 265-399 lb., IV, ONE TIME. OR Kt58x-Sxxjdpq (Hyebetzloa71i-Czmgrwk), Administer 24mCi for male patients >= 330-399 lb., IV, ONE TIME. OR Rw66o-Zwxabhe (Rgeepjajoz64x-Wfexrkz), Administer 30mCi for all patients >= 400- 500 lb., IV, ONETIME. Myocardial Viability Imaging Tl-201 (Thallium Chloride-201), Administer 2.5mCi, IV, ONE TIME. ? ? Note: If patient >=250 lbs, TI-201 (Thallium Chloride-201), Administer 3.5mCi, IV, ONE TIME. Octreoscan In-111 Pentetreotide (Indium-111 Pentetreotide), Administer 6mCi, IV, ONE TIME. Parathyroid Imaging Mw25r-Wiqxdtmeh (Fenfyupryv43c-zjufdukfq), Administer 20mCi, IV, ONE TIME. Peritoneal Cavity Scintigraphy Pu63k-Pcrzxo Colloid (Lodygqwmbv07g-lmygys colloid), Administer 2mCiin 3mL NS, via peritoneal dialysis, ONE TIME. Peritoneovenous Shunt Scintigraphy Tc-99m MAA (Hfsnunnifc43q-zijffzgcpzehgxc albumin), Physician toadminister 5mCi in 3mL NS, Intraperitoneal, ONE TIME. PET/CT Axumin F-18 Axumin (Yarmkanq39-gwdjbrqzkupm), Administer 10mCi, IV, ONE TIME. PET/CT Bone Scan F18-NaF (Cdmshmkh14-suesha fluoride), Administer at least 8mCi, up to 11mCi, IV, ONE TIME. PET/CT Brain Imaging (Amyvid) F18- florbetapir [Amyvid??, (E)-4-(2-(6-(2-(2-(2[F-18]- (fluoroethoxy)ethoxy)ethoxy)pikyhzvl-4-bf)vinyl)-N-methylbenzamine], Administer 10mCi, IV, ONE TIME. PET/CT Brain Imaging (FDG) F18-FDG (Fakjhezi60-aukoyptnueaezpbea), Administer 10mCi, IV, ONE TIME. PET/CT Dotatate Imaging Ga-68 Dotatate (Gallium-68 Dotatate), Administer 5.4mCi, IV, ONE TIME. PET/CT Dotatate Imaging Cu-64 Detectnet (Copper-64 Dotatate), Administer 4mCi, IV, ONE TIME. PET/CT Myocardial Scan (Sarcoidosis or Viability) F18-FDG (Pdtzmwbu76- flurodeoxyglucose), Administer 0.11mCi/kg with at least 8mCi, up to 17mCi, IV, ONE TIME. PET/CT Pylarify Imaging C74-Sfbcoktw (Yzuuxjue26-Jtghgrvkslozq), Administer up to 9mCi, IV, ONE TIME. Renal Scintigraphy (BALA-Inhibitor Renal Scan) Ib52k-KRG9 (Ohocazhlzk96g- mercaptoacetyltriglcine), Administer 5mCi, IV, ONE TIME. AND Administer Enalaprilat (Vasotec) 2.5mg, IV, ONE TIME. Dilute to 5mL total volume with normal salineand infuse via hand push injection over 5 minutes. OR Administer Captopril, 50mg capsule crushed and dissolved in 150mL tap water, Orally, ONE TIME. Renal Scintigraphy (Cortical Imaging) Le39m-GBKQ (Jkcvkepyig15u- dimercaptosuccinic acid), Administer 5mCi, IV, ONE TIME. Renal Scintigraphy (Diuretic Renal Scan) Aa37l-IJOP (Cbuatkeucz88e-tpwtllpmee-wvdycfmh-lugbshgjpwjx), Administer 5mCi, IV, ONE TIME. AND Administer Lasix (furosemide) 40mg, IV push over 2 minutes, ONE TIME. OR Pz03w-HDI1 (Wbphutwmaw66z-tzjosxpfwwjhcaqheahjcfl), Administer 5mCi, IV, ONE TIME. AND Administer Lasix (furosemide), 40mg, IV push over 2 minutes, ONE TIME. Renal Scintigraphy (Flow and Function Scan) Qs84b-GAGD (Wejombfcgl97e-lgonlkbkrt-tkbccufs-degutdsxqeqp), Administer 5mCi, IV, ONE TIME. OR Qe32y-NRO7 (Ltwgbjdlrq14x-yxldmefcdglqpyvjcpyzjiu), Administer 5mCi, IV, ONE TIME. Renal Scintigraphy (Renal Transplant Scan) Gm92p-VKIQ (Dbsaachemh34g-loxftyrsbu-ugpqdtts-eaxtawigucoy), Administer 5mCi, IV, ONE TIME. OR Fp24w-KUO5 (Ftofjobtta52x-eskrmjkutxmncoycenranmq), Administer 5mCi, IV, ONE TIME. Salivary Imaging Tc-99m Pertechnetate (Bpaaajfhfr57a-flsviipvusnzz), Administer 5mCi, Orally, ONE TIME. Shunt Patency Imaging (CSF Shunt Imaging) Bu43d-OXHN (Gojpoctmgo46t-cgxlpqouca-kwiwstqr-olnpndotsdqr), Neurosurgeon or neurosurgeon's PA to administer 0.5mCi, intra-shunt reservoir, ONE TIME. Splenic Imaging Tc-99m Pertechnetate (Lwtydtoiek21y-dplbhmuapmcqy), Administer 6mCi heparinized, heat damaged RBCs, IV, ONE TIME. Sb78y-UMQ Imaging Wi17o-Gsxpfhp (Cqdobbnzld53e-Psxganb), Administer 15mCi heparinized WBC, IV, ONE TIME. Thyrogen Injection Thyrogen (thyrotopin erich), Administer 0.9mg, deep IM, every 24 hours for 2 doses. Thyroid Imaging Tc-99m Pertechnetate (Fxepbyooko52g-huvmqiucpycit), Administer 10mCi, IV, ONE TIME. OR I-123 Na Iodide (Iodide-123 Na Iodide), Administer 200 uCi capsule, Orally, ONE TIME. Thyroid Scan & Uptake I-123 Na Iodide (Iodide-123 Na Iodide), Administer 200 uCi capsule, Orally, ONE TIME. Thyroid Uptake I-123 Na Iodide (Iodide-123 Na Iodide), Administer 200 uCi capsule, Orally, ONE TIME. OR I-131 Na Iodide (Iodide-131 Na Iodide), Administer at least 5 uCi, up to 25 uCi, Orally, ONE TIME. Whole Body I-123 Imaging I-123 Na Iodide (Iodide-123 Na Iodide), Administer 2.5 mCi capsule, Orally, ONE TIME. Whole Body I-131 Imaging I-131 Na Iodide (Iodide-131 Na Iodide), Administer 3 mCi capsule or solution, Orally, ONE TIME. Xofigo Treatment Ra-223 dichloride, Administer 1.49 mCi/kg, IV, ONE TIME. Pediatric Procedures & Dosages: o Note: Radiopharmaceuticals dosages with a range are determined by rn correctional calibration o Note: In acute Tc99m shortages, radiopharmaceutical dosages may be decreased with approval and documentation within department from medical billing and coding specialist/AU. o Note: Hybrid SPECT/CT imaging used as appropriate for exam and/or as directed by Radiologist PROCEDURE DOSAGE Bone Marrow Imaging Xs26f-Mvgpaolk Sulfur Colloid (Hpjazzacnd60u-ewfycglf sulfur colloid), Administer 0.14mCi/kg with at least 1mCi, up to 8mCi, IV, ONE TIME. Bone Scan Imaging (Whole Body, Limited, 3-Phase, or SPECT) Ns78w-REF (Uavjernjnb47y-pdiykzjqa diphosphonate), Administer 0.25mCi/kg with at least 1mCi, up to 25mCi, IV, ONE TIME. OR Xn84a-YHU (Iausxyenkr87f-uqmpufripilkynsw diphosphonate), Administer 0.25mCi/kg with at least 1mCi,up to 25mCi, IV, ONE TIME Brain Imaging Co49j-HGHM (Jgjjwtuzpd66a-kzjwwxmzok-gmbzosah-auxovjzjtcjn), Administer 0.3mCi/kg with at least 5mCi, up to 20mCi, IV, ONE TIME. Brain SPECT Imaging Er41e-XIMFJ (Ceretec) (Aijowgabht12m-kcryvloqasftpvwjowt amine oxime), Administer 0.3mCi/kg with at least 3mCi, up to 20mCi, IV, ONE TIME. C14 Urea Breath Test (PY Test) F63-Xzdx (Carbon-14 Urea), Administer 1uCi capsule, Orally, ONE TIME. Cisternogram Imaging In-111 DTPA (Indium-111 dhlchocckc-yvbvbvnx-bckjtvidsdao), Neuroradiologist toadminister 0.07mCi/kg with at least 0.1mCi, up to 0.5mCi, Intrathecally, ONE TIME. Cystogram Imaging Tc-99m Pertechnetate (Trnceqwqjg08f-kkbpnugpkaaqa) Administer 1mCi, intra-prasad catheter, ONE TIME AND Administer NS per calculated expected bladder volume, intra-prasad catheter, ONE TIME. Diverticulum/Meckel's Imaging Tc-99m Pertechnetate (Oyaixhwmtu83h- pertechnetate), Administer 0.05mCi/kg with at least 0.25mCi, up to 15mCi, IV, ONE TIME. Esophageal Reflux Imaging - <1yoa In58r-Wpkgbf Colloid (Yqpaxwsmjx84h-xcinwo colloid), Administer 0.1mCi for patients <3.5lb., Orally, ONE TIME. OR Administer 0.2mCi for patients 3.5-6.5lb., Orally, ONE TIME. OR Administer 0.3mCi for patients >6.5lb., Orally, ONE TIME. *For all administrations, determine amount of formula or breast milk patient consumes in 1 hour by dividing their normal feed amount by 4. Then, take this calculated amount and divide into 2 so that you can tag ?? with the radiopharmaceutical and feed the remaining ?? 'cold'; feed the radioac tive labeled formula/milk and then 'cold' formula/milk over a 10-minute total period of time. Esophageal Reflux Imaging - >1yoa Zf34h-Jevoyc Colloid (Mqiuppyaof50r-jfctnw colloid), Administer 0.5mCi in 1 oz whole milk, Orally, ONE TIME. Follow with 7 oz whole milk. Ga-67 Citrate - Planar Imaging Ga-67 Citrate (Gallium-67 Citrate), Administer 0.07mCi/kg with at least 0.5mCi, up to 5mCi, IV, ONETIME. Ga-67 Citrate - SPECT Imaging Ga-67 Citrate (Gallium-67 Citrate), Administer 0.14mCi/kg with at least 1mCi, up to 10mCi, IV, ONE TIME. Gastric Empty Imaging - Liquid Meal Lp27z-Idqpwb Colloid (Hqdyvfrofy15q-pypsvt colloid), Administer7 uCi/kg with at least 250uCi, up to 500uCi, Orally, ONE TIME. *For all administrations, determine amount of formula or breast milk patient consumes in 1 hour by dividing their normal feed amount by 4. Then, take this calculated amount and divide into 2 so that you can tag ?? with the radiopharmaceutical and feed the remaining ?? 'cold'; feed the infant radioac tive labeled formula/milk and then 'cold' formula/milk over a 10-minute total period of time.OR Rx17d-SNKM (Euhkgpyuov93m-phqezovbyf-ehlbcqxl-exzqoifthhy), Administer 1mCi in 300mL tap water, Orally, ONE TIME. *Follow Cg17g-ATFT dosing if the pediatric patient is not an infant and consumes water. Gastric Empty Imaging - Solid Meal Re12d-Bpzuyq Colloid (Qgxaewabnz35f-vzxvpl colloid), Administer 7uCi/kg with at least 250uCi, up to 500uCi in 4 oz eggbeaters or in 1 package of cooked instant oatmeal, Orally, ONE TIME. GI Bleed Imaging (GI Blood Loss) Tc-99m Pertechnetate (Jvnemfeeka09s- pertechnetate), Administer 0.32mCi heparinized RBCs with at least 2mCi, up to 22mCi, IV, ONE TIME. Hepatic Blood Pool Imaging Tc-99m Pertechnetate (Vwoupgwcnl47f-qwwfmftlpyzaa), Administer 0.32mCi heparinized RBCs with at least 2mCi, up to 22mCi, IV, ONE TIME. Hepatic Hemangioma Imaging Tc-99m Pertechnetate (Ixgksfwgbj42q-jxsflslcivwxg), Administer 0.32mCi heparinized RBCs with at least 2mCi, up to 22mCi, IV, ONE TIME. Hepatobiliary Scan Imaging Tc-99m Mebrofenin (Ahcobbtyag46r-xpxdliavuo), Administer 0.05mCi/kg withat least 0.5mCi, up to 5mCi, IV, ONE TIME *For inpatients only, if bilirubin >5mg/dL, Administer 0.08mCi/kg with at least 1mCi, up to 8mCi, IV, ONE TIME *For inpatients only, if bilirubin > 8mg/dL, consult nuclear medicine physician prior to administering radiopharmaceutical Hepatobiliary Scan Imaging for in Jaundice Tc-99m Mebrofenin (Kqrooehuob15u-sbrotyalbk), Administer 0.08mCi/kg with at least 1mCi, up to 8mCi, IV, ONE TIME AND Administer Phenobarbital 5mg/kg/day (may be administered in 2 divided doses) for 5 days prior to imaging, IV, ONE TIME PER DAY. Hepatobiliary Scan with Ejection Fraction Imaging Tc-99m Mebrofenin (Jxrqbfcvss08f-seiicimbwf), Administer 0.05mCi/kg with a at least 0.5mCi, up to 5mCi IV, ONE TIME *For inpatients only, if bilirubin >5mg/dL, Administer 0.08mCi/kg with at least 1mCi, up to 8mCi, IV, ONE TIME *For inpatients only, if bilirubin > 8mg/dL, consult nuclear medicine physician prior to administering radiopharmaceutical AND For immediate use - Sincalide (Kinevac) 0.02 mcg/kg IV, ONE TIME, diluted with NS to a total infused volume of 30 mLs. Infuse via an infusion device over 30 minutes. *If Sincalide unavailable, 3.5ml/kg, up to 240mL (8oz) Ensure Plus, Orally, ONE TIME. Hepatobiliary Scan with Pre-Treatment Imaging Tc-99m Mebrofenin (Zlgohlktek58e- mebrofenin), Administer 0.05mCi/kg with a at least 0.5mCi, up to 5mCi IV, ONE TIME *For inpatients only, if bilirubin >5mg/dL, Administer 0.08mCi/kg with at least 1mCi, up to 8mCi, IV, ONE TIME *For inpatients only, if bilirubin > 8mg/dL, consult nuclear medicine physician prior to administering radiopharmaceutical AND For immediate use - Sincalide (Kinevac) 0.01 mcg/kg IV, ONE TIME, diluted with NS to a total infused volume of 5 mL, Infuse via hand push over 5 minutes. In-111 Dual Isotope Imaging In-111 Oxine (Indium-111 Oxine), Administer 5uCi/kg with at least 300uCi, up to 500uCi, heparanized WBC, IV, ONE TIME. AND Mv18t-QIY (Pwgdpjybhf80h-nexusuyuk diphosphonate), Administer 0.25mCi/kg with at least 1mCi, up to 20mCi, IV, ONE TIME. OR In-111 Oxine (Indium-111 Oxine), Administer 5uCi/kg with at least 300uCi, up to 500uCi, heparanizedWBC, IV, ONE TIME. AND Lu11m-Pvicysub Sulfur Colloid (Mmsqslvkcl02u-rjufsfpk sulfur colloid), Administer 0.14mCi/kg with at least 1mCi, up to 8mCi, IV, ONE TIME. In-111 WBC Imaging In-111 Oxine (Indium-111 Oxine), Administer 5uCi/kg with at least 300uCi, up to 500uCi, heparanized WBC, IV, ONE TIME. Liver/Spleen Imaging Pz18y-Eemzzz Colloid (Lletbsiznf31e-zbfryn colloid), Administer 0.05mCi/kg with at least 0.5mCi, up to 5mCi, IV, ONE TIME. Lung Aerosol Perfusion Imaging Tc-99m MAA (Davfbaajfl09t-pidihvjblovwzfc albumin), Administer 0.03mCi/kg, with at least 0.4mCi, up to 4mCi IV, ONE TIME. Lung Xenon Perfusion Imaging (normal or quantitative) Tc-99m MAA (Iawylxbqng83j- macroaggregated albumin), Administer 0.03mCi/kg, with at least 0.4mCi, up to 4mCi IV, ONE TIME. Lung Aerosol Ventilation Imaging Ig61z-HCGN (Mnezvvzcfn48c-tlgigdagnc-dsfebtac-rgsazhnemkwe), Administer 40mCi in 2mL NS via aerosol delivery device, Inhalation, ONE TIME. Lung Xenon Ventilation Imaging (normal or quantitative) Xe-133 (Xenon-133), Administer 10 mCi, inhalation, ONE TIME. Lung Perfusion Imaging (normal or quantitative) Tc-99m MAA (Tzswprolal99c- macroaggregated albumin),Administer 0.03mCi/kg, with at least 0.4mCi, up to 4mCi IV, ONE TIME. Lung Perfusion Imaging - Patient (normal or quantitative) Tc-99m MAA (Kmulhbjxpz96i-xrfwhglhnqxgaoe albumin), Administer 0.03mCi/kg, with at least 0.4mCi, up to 2mCi IV, ONE TIME. MIBG Imaging I-123 MIBG (Iodine-123 metaiodobenzylguandidine), Administer 0.14mCi/kg with at least 1mCi, up to 10mCi, IV, ONE TIME AND Administer SSKI (Potassium Iodide) drops 30 minutes prior to radiopharmaceutical injection. ??? * to 1 month: 16mg, Orally, ONE TIME. ??? * 1 month to 3 years of age: 32mg, Orally, ONE TIME. ??? * Greater than 3 years to 17 years of age: 65mg, Orally, ONE TIME. MUGA/RVG Imaging Tc-99m Pertechnetate (Tbvpbgrzka90x-bqgatqsoamctd), Administer 0.32mCi/kg heparinized RBCs with at least 2mCi, up to 22mCi, IV, ONE TIME. Myocardial Amyloid Scintigraphy (Hot PYP Scan) Bu79w-BTY (Sxkvnjuxcb49a- pyrophosphate), Administer 0.28mCi/kg, with at least 2.5mCi, up to 15mCi IV, ONE TIME. Myocardial Rest Imaging - SPECT Imaging Cd30t-Ogdaros (Zgdbcrkyzt38l-Tkugaha), Administer 0.15mCi/kg, with at least 2mCi, up to 8mCi IV, ONE TIME. Myocardial Stress Imaging - SPECT Imaging Sp63x-Byogegd (Fuybyrvhsr58j-Fqvgsls), Administer 0.45mCi/kg, with at least 6mCi, up to 24mCi IV, ONE TIME. Octreoscan In-111 Pentetreotide (Indium-111 Pentetreotide), Administer 0.08mCi/kg with at least 1mCi, up to 6mCi, IV, ONE TIME. Parathyroid Imaging Xl46g-Sffqwiffx (Utsmsiiuyz82a-jltlpokso), Administer 0.25mCi/kg, with at ifetp8dDd, up to 20mCi IV, ONE TIME. Peritoneal Cavity Scintigraphy Wj22k-Pccspv Colloid (Flagpjxslr76p-lmcxeq colloid), Administer 0.07mCi/kg in 2mL NS with at least 1mCi, up to 2mCi, via peritoneal dialysis, ONE TIME. Peritoneovenous Shunt Scintigraphy Tc-99m MAA (Jtetxagsro86s-eoevztzxyyvntvh albumin), Physician toadminister 0.07mCi/kg with at least 1mCi, up to 5mCi in 2mL NS, Intraperitoneal, ONE TIME. PET/CT Bone Scan F18-NaF (Lkcujzpl77-oqnqui fluoride), Administer 0.11mCi/kg with at least 2mCi, upto 11mCi, IV, ONE TIME. PET/CT Brain Imaging (FDG) F18-FDG (Droyufjq09-vxdinsldbgfyumseh), Administer 0.10mCi/kg with at least 2mCi, up to 10mCi, IV, ONE TIME. PET/CT Limited, Standard, or Whole-Body Oncology Imaging F18-FDG (Qoxjgohj66- flurodeoxyglucose), Administer 0.11mCi/kg with at least 2mCi, up to 10mCi, IV, ONE TIME. PET/CT Dotatate Imaging Ga-68 Dotatate (Gallium-68 Dotatate), Administer 0.054mCi/kg up to 5.4mCi, IV, ONE TIME. (Minimum dose determined by AU). Renal Scintigraphy (BALA-Inhibitor Renal Scan) Eb69h-YTS5 (Yqhpqlnwol15h-nldpcvwbjeejppleuvhugsm), Administer 0.1mCi/kg with at least 1mCi, up to 5mCi, IV, ONE TIME. AND Administer Enalaprilat (Vasotec) 0.04mg/kg with a maximum dose of 2.5mg, IV, ONE TIME. Dilute to 5mL total volume with normal saline and infuse via hand push over 5 minutes. Renal Scintigraphy (Cortical Imaging) Kc07f-YOCH (Etjftmzbck26o-gmdnjnuymbctaumrva acid), Administer 0.05mCi/kg with at least 0.5mCi, up to 5mCi, IV, ONE TIME. Renal Scintigraphy (Diuretic Renal Scan) Ed13n-LBCV (Wamkahesxt83r-uyobyhiohx-udvhpahu-rbzlqnmirbtd), Administer 0.2mCi/kg with at least 2mCi, up to 5mCi, IV, ONE TIME. AND Administer Lasix (furosemide), 1mg/kg, up to 40mg, IV push over 2 minutes, ONE TIME. A reduced dosage of 0.5mg/kg may be used per direction of nuclear medicine physician. OR Md66o-BCF7 (Wxhafvszch64k-kmjszpaubxkoufagvpghfyo), Administer 0.1mCi/kg with at least 1mCi, up to 5mCi, IV, ONE TIME. AND Administer Lasix (furosemide), 1mg/kg, up to 40mg, IV push over 2 minutes, ONE TIME. A reduced dosage of 0.5mg/kg may be used per direction of the nuclear medicine physician. Renal Scintigraphy (Flow and Function Scan) Ka89w-EYWA (Pmwpcihiac70e-kczlwhbgkb-rktendpr-bnezkrawxdcn), Administer 0.2mCi/kg with at least 2mCi, up to 5mCi OR Cr03k-JUO9 (Uwrdbydskh38m-rlrxcaffehxnolecmhlshog), Administer 0.1mCi/kg with at least 1mCi, up to 5mCi, IV, ONE TIME. Renal Scintigraphy (Renal Transplant Scan) Yd20c-WJYO (Thnyphltwr11q-wamcfvrect-rsllcsok-yipjxujbbbsk), Administer 0.2mCi/kg with at least 2mCi, up to 5mCi OR Cy99b-FSR3 (Nlaeihonrw48m-kgtjjaoxtqtgjgnjdjaqlkt), Administer 0.1mCi/kg with at least 1mCi, up to 5mCi, IV, ONE TIME. Salivary Imaging Tc-99m Pertechnetate (Osnhcjdvxo93w-levrdnwvcxltd), Administer 0.05mCi/kg with at least 0.25mCi, up to 5mCi, Orally, ONE TIME. Shunt Patency Imaging (CSF Shunt Imaging) Cq78y-DMVQ (Fqufblfsyz13x-cbaanuxuim-tjsevytz-kqjepdgtpbdk), Neurosurgeon or neurosurgeon's PA to administer 0.01mCi/kg with at least 0.4mCi, up to 0.5mCi, intra-shunt reservoir, ONE TIME. Splenic Imaging Tc-99m Pertechnetate (Kqkhhlvktg43h-eolwshxnopltz), Administer 0.03mCi/kg with at least 0.5mCi, up to 6mCi heparinized, heat damaged RBCs, IV, ONE TIME. Kj48h-KTP Imaging Kf73r-Zrjtarf (Kjxufglrzf59a-Jtlhvpr), Administer 0.2mCi/kg with at least 2mCi, up to 15mCi, heparinized WBC, IV, ONE TIME. Thyroid Imaging Tc-99m Pertechnetate (Zoohktlkgv17k-mrctglmqluiig), Administer 0.07mCi/kg with at least 1mCi, up to 10mCi, IV, ONE TIME. Thyroid Scan & Uptake I-123 Na Iodide (Iodide-123 Na Iodide), Administer dosage per treating AU& fill out special prescription form, Orally, ONE TIME. Thyroid Uptake I-123 Na Iodide (Iodide-123 Na Iodide), Administer dosage per treating AU & fillout special prescription form, Orally, ONE TIME. OR I-131 Na Iodide (Iodide-131 Na Iodide), Administer dosage per treating AU & fill out special prescription form, Orally, ONE TIME. Whole Body I-131 Imaging I-131 Na Iodide (Iodide-131 Na Iodide), Administer 0.07uCi/kg, up to 3mCi capsule or solution (minimum dose per treating AU), Orally, ONE TIME. * Care Plan - Dalia Carey RN - 07/11/2021 4:33 AM CDT Patient Axo4, POC discussed with patient, verbalized understanding. Room Air. Continent. Independent. Npo sips with meds. Active order for echo and stress trest. Rest comfortably. No signs of distress. Problem: Pain, Potential/Actual Goal: Verbalizes/displays acceptable comfort level or baseline comfort level Description: Outcome: Progressing Problem: Infection Risk/Actual Goal: Infection Risk/Actual: Infection prevention, control, or resolution by discharge Description: Outcome: Progressing Problem: Safety/Fall Goal: Safety/Fall: Absence of fall, injury, harm during hospitalization Description: Outcome: Progressing Problem: Discharge Planning Goal: Identify discharge needs upon admission and through discharge Description: Outcome: Progressing Problem: Cardiovascular Goal: Achieve optimal cardiovascular function by discharge or maintain baseline function Outcome: Progressing * Care Plan - Mike Cottrell RN - 07/10/2021 6:38 PM CDT UNDRESS and ASSESS for ALL ADMISSIONS and TRANSFERS Remove all existing dressings and assess all wounds upon admission (unless instructed by provider). on admission to Location(unit/floor)5139 Julio Score: Julio Score: 23 (07/10/21 1700) 1 Undress and Assess performed by bedside coworker Mathew ARROYO and bedside coworker Morena CALZADA 2 Does the patient have any skin breakdown? No ??? Add an LDA for any wound for non-blanching pink/red or purple areas. ??? Assess all high risk areas: heels, ankles, knees, hips, sacrum, coccyx, ischium, gluteal, occiput, spine and all skin folds ??? Consult wound care services for all new pressure-related injuries If yes, ??? location(s) and description of breakdown: n/a ??? Photograph wound, if applicable. 3 Is a specialty support surface in place? No If yes, which one?: n/a (examples: Low air loss air mattress, Roho, etc...) Patients with impaired mobility, bariatric, malnourished, existing pressure injury, are high considerations for specialty support surface. 4 Is the patient a paraplegic/quadriplegic? No If yes AND if stable spine immediately place on specialty surface and consult wound care services. If unstable spine or new spinal injury, defer to provider before specialty surface use. 5 Is a medical research tech present? no If yes, which one?: n/a ??? Remove device/brace/splint to check skin underneath, obtain provider order if necessary. 6 Does the patient have a wound VAC (negative pressure wound therapy)? No If yes, please consult wound care services and switch VAC device to hospital VAC, if compatible. 7 Does the patient have an ostomy? No If yes, please consult wound care/ostomy services. (Add comment to consult if ostomy is problematic for patient.) 9 Was the Skin Prevention/ Pressure Injury Pathway initiated and appropriate interventions selected? No Use for prevention of skin issues due to friction, shear, pressure, mobility or moisture issues. 10 Was the Skin Care Treatment: Pressure Injury/Lower Extremity Ulcer Pathway initiated, and appropriate interventions selected? No Use for conditions such as: existing pressure injuries, yeast, deeptissue injury, incontinence associated dermatitis, lower extremity ulcers, and skin tears. 11 Wound care consult/ostomy care consult was not initiated. [facility] Skin Care Injury Prevention and Treatment Protocol [facility] Approved by: [facility] - Medical Executive Committee Approval Date: 03/26/2019 ORDERS ARE ENTERED ???PER PROTOCOL?? Nursing Orders: o When a patient age 18 years or older has: ? a documented Julio score of 18 or less or a Julio sub score of 2 or 1, ? or a documented condition on the problem list of: diabetes, malnutrition or cachectic, paralysis,spinal cord disorder/injuries or muscle/neurological disease, THEN, the RN will order the Skin Care/Pressure Injury Prevention Pathway and initiate all appropriate interventions as per the Julio Risk Assessment Algorithm. o When a patient age 18 years or older has a wound requiring treatment, the RN and Wound Care Nurses may order the Skin Care/Pressure Ulcer/Lower Extremity Ulcer Treatment Pathway and use appropriatetreatments found in the Nursing Algorithm. o The Wound Care Nurse may also order treatments found in the Wound Care Algorithm. * ED Bed Hold Comment Note - Delia Uriarte RN - 07/10/2021 1:47 PM CDT Bed: 26 Expected date: 07/10/21 Expected time: 1:41 PM Means of arrival: Arvind Haynes Comments: 2317 56 y/o M chest pain but no pain at this time. Back pain and travels up into his neck asa taken. LBBB . EKG LBBB documented in this encounter Plan of Treatment Not on file documented as of this encounter Procedures Procedure Name Priority Date/Time Associated Diagnosis Comments HM EJECTION FRACTION Routine 07/11/2021 12:45 PM CDT NM MYOCARD PERF IMAG SPECT MULT Pending Discharge 07/11/2021 12:45 PM CDT NM PHARMACOLOGICAL STRESS TEST Pending Discharge 07/11/2021 11:14 AM CDT ECHOCARDIOGRAM W/ CONTRAST AGENT Pending Discharge 07/11/2021 9:07 AM CDT LIPID RFLX Routine 07/11/2021 7:04 AM CDT BASIC METABOLIC PANEL Routine 07/11/2021 7:04 AM CDT TROPONIN 6 HR, 5TH GEN Timed Study 2 10:00 PM CDT TROPONIN 2 HR, 5TH GEN Stat 2 5:58 PM CDT TSH Routine 07/10/2021 5:58 PM CDT XR CHEST PA OR AP 1 VW Stat 2 4:02 PM CDT D-DIMER Stat 07/10/2021 2:34 PM CDT TROPONIN BASELINE, 5TH GEN Stat 07/10/2021 1:56 PM CDT CBC WITH DIFFERENTIAL Stat 07/10/2021 1:56 PM CDT HEMOGLOBIN A1C Routine 07/10/2021 1:56 PM CDT COMPREHENSIVE METABOLIC PANEL Stat 07/10/2021 1:56 PM CDT EKG 12-LEAD Stat 07/10/2021 1:52 PM CDT documented in this encounter Results * HM EJECTION FRACTION (07/11/2021 12:45 PM CDT) [facility] Signature EJECTION FRACTION 58 50 - 65 % Historical Provider HEALTH MAINTENANCE * NM MYOCARD PERF IMAG SPECT MULT (07/11/2021 12:45 PM CDT) 07/11/2021 12:4 5 PM CDT Impressions INTERFACE SYSTEM - 07/11/2021 2:49 PM CDT IMPRESSION: ?? 1) The EKG stress test is nondiagnostic due to left bundle branch block. 2) The overall quality of the study is good. 3) The myocardial perfusion scan is normal. No evidence of ischemia or infarction on post stress prone imaging. ?? 4) Left ventricular size is normal with normal left ventricular systolic function, and a calculated ejection fraction of 57%. 5) ??No previous study was available for comparison. ? Recommendations: Clinical correlation ??is recommended. ? Narrative INTERFACE SYSTEM - 07/11/2021 2:49 PM CDT ? Date of ??Procedure: 07/11/2021 12:45 PM ? Procedure Type: One Day Myoview Lexiscan Stress Test ? Clinical Indications:This 56 years old Male was undergoing an evaluation for CAD and is undergoing a pharmacologic stress test due to chest pain. Medications:See List Pharmacologic Stress Procedure: The patient performed a chemical stress test at rest using 0.4 mg Lexiscan IVP over 10 seconds. ??The heart rate was 59 bpm at baseline and increased to 109 bpm. ??The blood pressure was 124/81 at baseline and 109/80 during infusion, demonstrating a normal response to Lexiscan. The patient felt shortness of breath during the procedure. ?? EKG: The baseline electrocardiogram showed sinus rhythm, left bundle branch block. The stress electrocardiogram showed no ischemic changes. There was rare isolated PVC. The electrocardiogram changes show a nondiagnostic response to Lexiscan. ?? Nuclear Imaging Protocol: Myocardial perfusion imaging was performed at rest approximately 60 minutes following the intravenous injection of 7.1 mCi TC99m Myoview. ?? During infusion, the patient was injected intravenously with 19.9 mCi TC99m Myoview. ??Gated post - stress tomographic imaging was performed approximately 60 minutes later in same manner. SPECT reconstruction was performed in the short, vertical long and horizontal axis views in both resting and gated image sets. Findings: The overall quality of the study is good. ??Rotating planar images reveal no motion artifact. ??The left ventricular size is normal. ??Rest and post-stress SPECT myocardial perfusion images reveal mildly decreased counts in the inferoseptal and anteroseptal nielsen. There are no reversible perfusion abnormalities. Post stress prone imaging reveals the normal perfusion in all segments. Gated SPECT imaging demonstrates abnormal septal wall motion consistent with left bundle branch block, and a calculated left ventricular ejection fraction estimated to be 58%. Procedure Note Mendel Mendoza MD - 07/11/2021 Date of Procedure: 07/11/2021 12:45 PM Procedure Type: One Day Myoview Lexiscan Stress Test Clinical Indications:This 56 years old Male was undergoing an evaluation for CAD and is undergoing a pharmacologic stress test due to chest pain. Medications:See List Pharmacologic Stress Procedure: The patient performed a chemical stress test at rest using 0.4 mg Lexiscan IVP over 10 seconds. The heart rate was 59 bpm at baseline and increased to 109 bpm. The blood pressure was 124/81 at baseline and 109/80 during infusion, demonstrating a normal response to Lexiscan. The patient felt shortness of breath during the procedure. EKG: The baseline electrocardiogram showed sinus rhythm, left bundle branch block. The stress electrocardiogram showed no ischemic changes. There was rare isolated PVC. The electrocardiogram changes show a nondiagnostic response to Lexiscan. Nuclear Imaging Protocol: Myocardial perfusion imaging was performed at rest approximately 60 minutes following the intravenous injection of 7.1 mCi TC99m Myoview. During infusion, the patient was injected intravenously with 19.9 mCi TC99m Myoview. Gated post - stress tomographic imaging was performed approximately 60 minutes later in same manner. SPECT reconstruction was performed in the short, vertical long and horizontal axis views in both resting and gated image sets. Findings: The overall quality of the study is good. Rotating planar images reveal no motion artifact. The left ventricular size is normal. Rest and post-stress SPECT myocardial perfusion images reveal mildly decreased counts in the inferoseptal and anteroseptal nielsen. There are no reversible perfusion abnormalities. Post stress prone imaging reveals the normal perfusion in all segments. Gated SPECT imaging demonstrates abnormal septal wall motion consistent with left bundle branch block, and a calculated left ventricular ejection fraction estimated to be 58%. IMPRESSION: 1) The EKG stress test is nondiagnostic due to left bundle branch block. 2) The overall quality of the study is good. 3) The myocardial perfusion scan is normal. No evidence of ischemia or infarction on post stress prone imaging. 4) Left ventricular size is normal with normal left ventricular systolic function, and a calculated ejection fraction of 57%. 5) No previous study was available for comparison. Recommendations: Clinical correlation is recommended. Kamille Buckley NP NM ORDERABLES INTERFACE SYSTEM Refer to clinic/hospital department * NM PHARMACOLOGICAL STRESS TEST (07/11/2021 11:14 AM CDT) Narrative 07/11/2021 11:14 AM CDT Order information only. ??Exam was auto-finalized. ?? Kamille Buclkey NP NM ORDERABLES * ECHOCARDIOGRAM W/ CONTRAST AGENT (07/11/2021 9:07 AM CDT) EJECTION FRACTION EF: INTERFACE SYSTEM 07/11/2021 8:21 AM CDT Narrative INTERFACE SYSTEM - 07/11/2021 9:30 AM CDT -- [address] [address] [email or web address] -- Transthoracic Echocardiography -- Patient: ?Manish Campbell MRN: ?[id number] Study ID: ? ECHO COMPLETE Gender: ? M : ?1965 Age: ?56 Race: ? CAU Height ?182.9cm Study Date: ? 07/11/2021 Weight: ? 109.8kg Access. #: ?[id number] Account #: ?[id number] BP: -- -- *Referring Physician:* Kamille Drake *Ordering Physician:* ??Kamille Drake Process Line Operator: drill operator automatic: Nurse: -- STUDY CONCLUSIONS: SUMMARY: -- - Left ventricle: The cavity size was normal. Wall thickness was normal. ??Global systolic function was at the lower limits of normal. The estimated ??ejection fraction was in the range of 50% to 55%. - Mitral valve: Mild regurgitation. - Left atrium: The atrium was normal in size. - Right ventricle: The cavity size was normal. Systolic function was normal. -- Cardiac Anatomy: LEFT VENTRICLE: ??The cavity size was normal. Wall thickness was normal. Global systolic function was at the lower limits of normal. The estimated ejection fraction was in the range of 50% to 55%. AORTIC VALVE: ?? Structurally normal valve. Trileaflet. ??Doppler: ?? No significant regurgitation. ?The LVOT to aortic valve VTI ratio is 0.74. The valve area by the velocity-time integral method is 2.6cm^2. The valve area index by the velocity-time integral method is 1.11cm^2/m^2. The ratio of LVOT to aortic valve peak velocity is 0.75. The valve area by the peak velocity method is 2.6cm^2. The valve area index by the peak velocity method is 1.12cm^2/m^2. ?The mean systolic gradient is 4mm Hg. The peak systolic gradient is 7mm Hg. AORTA: ??Aortic root: The aortic root was normal in size. MITRAL VALVE: ?? Structurally normal valve. ?Doppler: ?? Mild regurgitation. The valve area by pressure half-time is 2.3cm^2. The valve area index by pressure half-time is 1cm^2/m^2. LEFT ATRIUM: ??The atrium was normal in size. RIGHT VENTRICLE: ??The cavity size was normal. Systolic function was normal. Ventricular septum: ?Paradoxical septal motion. VENTRICULAR SEPTUM: ?? Paradoxical septal motion. PULMONIC VALVE: ?? Structurally normal valve. ?Doppler: ?? Mild regurgitation. The mean systolic gradient is 2mm Hg. The peak systolic gradient is 5mm Hg. TRICUSPID VALVE: ?? Structurally normal valve. ?Doppler: ?? Mild regurgitation. RIGHT ATRIUM: ??The atrium was normal in size. PERICARDIUM: ??There was no pericardial effusion. Systemic veins: Inferior vena cava: The vessel was normal in size. Measurements -- -- Left ventricle ? Value ?Ref MARY, LAX ? (L) ? 3.7 ?? cm ? 4.2 - 5.8 MARY/bsa, LAX ? (L) ? 1.6 ?? cm/m^2 ?? 2.2 - 3.0 MARY, LAX chord ? (N) ? 5.0 ?? cm ? 4.2 - 5.8 ESD, LAX chord ? (N) ? 3.7 ?? cm ? 2.5 - 4.0 PW, ED ? (N) ? 0.9 ?? cm ? 0.6 - 1.0 SV ? 74 ?ml ? SV/bsa ? 32 ?ml/m^2 ?? EDV, 2-p ? (N) ? 146 ?? ml ? 62 - 150 ESV, 2-p ? (H) ? 71 ?ml ? 21 - 61 EF, 2-p ?(N) ? 52 ?% ?52 - 72 SV, 2-p ?75 ?ml ? EDV/bsa, 2-p ? (N) ? 63 ?ml/m^2 ?? 34 - 74 ESV/bsa, 2-p ? (N) ? 31 ?ml/m^2 ?? 11 - 31 SV/bsa, 2-p ?32.6 ??ml/m^2 ?? E', lat vicky, TDI ? (N) ? 11.1 ??cm/sec ?? >=10.0 E/e', lat vicky, TDI ? 6 ? E', med vicky, TDI ? (N) ? 10.1 ??cm/sec ?? >=7.0 E/e', med vicky, TDI ? 6 ? E', avg, TDI ? 10.6 ??cm/sec ?? E/e', avg, TDI ? (N) ? 6 ?<=14 LVOT ? Value ?Ref Diam, S ?2.1 ?? cm ? Area ? 3.5 ?? cm^2 ? Peak jose, S ?1 ? m/sec ? VTI, S ? 21.3 ??cm ? Ventricular septum ? Value ?Ref IVS, ED ?(N) ? 0.7 ?? cm ? 0.6 - 1.0 Right ventricle ?Value ?Ref MARY minor ax, A4C base (N) ? 4.1 ?? cm ? 2.5 - 4.1 MARY minor ax, A4C mid ??(H) ? 4.2 ?? cm ? 1.9 - 3.5 TAPSE, MM ?(N) ? 2.2 ?? cm ? 1.7 - 3.1 Pressure, S ?38 ?mm Hg ? S' lateral ? (N) ? 12.0 ??cm/sec ?? 6.0 - 13.4 RVOT ? Value ?Ref Peak grad, S ? 2 ? mm Hg ? Left atrium ?Value ?Ref AP dim, ES ? (L) ? 2.8 ?? cm ? 3.0 - 4.0 AP dim index ? (L) ? 1.2 ?? cm/m^2 ?? 1.5 - 2.3 Vol, ES, 2-p ? 57 ?ml ? Vol/bsa, ES, 2-p ? (N) ? 25 ?ml/m^2 ?? 16 - 34 Right atrium ? Value ?Ref Area, ES, A4C ?(H) ? 20 ?cm^2 ? 10 - 18 Vol, ES, 1-p A4C ? 57 ?ml ? Vol/bsa, ES, 1-p A4C ?? (N) ? 25 ?ml/m^2 ?? 11 - 39 Aortic valve ? Value ?Ref Peak v, S ?1.3 ?? m/sec ? VTI, S ? 28.7 ??cm ? Mean grad, S ? 4 ? mm Hg ? Peak grad, S ? 7 ? mm Hg ? LVOT/AV, VTI ratio ? 0.74 ? ALISHA, VTI ? 2.6 ?? cm^2 ? ALISHA/bsa, VTI ? 1.11 ??cm^2/m^2 Mitral valve ? Value ?Ref Peak E ? 0.62 ??m/sec ? Peak A ? 0.68 ??m/sec ? Decel time ? 325 ?? ms ? PHT ?95 ?ms ? Peak E/A ratio ? 0.9 ? MVA, PHT ? 2.3 ?? cm^2 ? MVA/bsa, PHT ? 1 ? cm^2/m^2 Pulmonic valve ? Value ?Ref Peak v, S ?1.08 ??m/sec ? Mean grad, S ? 2 ? mm Hg ? Peak grad, S ? 5 ? mm Hg ? Tricuspid valve ?Value ?Ref TR peak v ?(N) ? 2.7 ?? m/sec ?<=2.8 Peak RV-RA grad, S ? 30 ?mm Hg ? Aortic root ?Value ?Ref Root diam, S ? 3.1 ?? cm ? Ascending aorta ?Value ?Ref AAo AP diam, S ? 3.0 ?? cm ? AAo AP diam/bsa, S ? 1.3 ?? cm/m^2 ?? -- -- Legend: (L) ??and ??(H) ??antonio values outside specified reference range. (N) ??thorne values inside specified reference range. Procedure data: Procedure information: ??Transthoracic echocardiography. Scanning was performed from the parasternal, apical, and subcostal acoustic windows. Intravenous contrast (Definity) was administered. ?Transthoracic echocardiography. Complete 2D, complete spectral Doppler, and color Doppler. ??Birthdate: Patient birthdate: 1965. ??Age: ??Patient is 56yr old. ??Sex: ?? gender: male. ??Height: ??182.9cm. 72in. ??Weight: ??109.8kg. 241.5lb. ??Body mass index: ??32.8kg/m^2. ??Body surface area: ?2.31m^2. ??Study date: ??Study date: 07/11/2021. Study time: 08:21 AM. ?Prepared and Electronically Authenticated Mathew Birmingham [id number] Procedure Note Mathew Birmingham MD - 07/11/2021 -- [address] [address] [email or web address] -- Transthoracic Echocardiography -- Patient: Manish Campbell Study ID: ECHO COMPLETE Gender: M : 1965 Age: 56 Race: YENY Height 182.9cm Study Date: 07/11/2021 Weight: 109.8kg Access. #: [id number] BP: -- -- *Referring Physician:Kamille Barry *Ordering Physician:Kamille Barry Process Line Operator: drill operator automatic: Nurse: -- STUDY CONCLUSIONS: SUMMARY: -- - Left ventricle: The cavity size was normal. Wall thickness was normal. Global systolic function was at the lower limits of normal. Theestimated ejection fraction was in the range of 50% to 55%. - Mitral valve: Mild regurgitation. - Left atrium: The atrium was normal in size. - Right ventricle: The cavity size was normal. Systolic function wasnormal. -- Cardiac Anatomy: LEFT VENTRICLE: The cavity size was normal. Wall thickness was normal.Global systolic function was at the lower limits of normal. The estimatedejection fraction was in the range of 50% to 55%. AORTIC VALVE: Structurally normal valve. Trileaflet. Doppler: No significant regurgitation. The LVOT to aortic valve VTI ratio is 0.74.The valve area by the velocity-time integral method is 2.6cm^2. The valvearea index by the velocity-time integral method is 1.11cm^2/m^2. The ratio ofLVOT to aortic valve peak velocity is 0.75. The valve area by the peakvelocity method is 2.6cm^2. The valve area index by the peak velocity method is 1.12cm^2/m^2. The mean systolic gradient is 4mm Hg. The peak systolic gradient is 7mm Hg. AORTA: Aortic root: The aortic root was normal in size. MITRAL VALVE: Structurally normal valve. Doppler: Mildregurgitation. The valve area by pressure half-time is 2.3cm^2. The valve area indexby pressure half-time is 1cm^2/m^2. LEFT ATRIUM: The atrium was normal in size. RIGHT VENTRICLE: The cavity size was normal. Systolic function wasnormal. Ventricular septum: Paradoxical septal motion. VENTRICULAR SEPTUM: Paradoxical septal motion. PULMONIC VALVE: Structurally normal valve. Doppler: Mildregurgitation. The mean systolic gradient is 2mm Hg. The peak systolic gradient is 5mmHg. TRICUSPID VALVE: Structurally normal valve. Doppler: Mild regurgitation. RIGHT ATRIUM: The atrium was normal in size. PERICARDIUM: There was no pericardial effusion. Systemic veins: Inferior vena cava: The vessel was normal in size. Measurements -- -- Left ventricle Value Ref MARY, LAX (L) 3.7 cm 4.2 - 5.8 MARY/bsa, LAX (L) 1.6 cm/m^2 2.2 - 3.0 MARY, LAX chord (N) 5.0 cm 4.2 - 5.8 ESD, LAX chord (N) 3.7 cm 2.5 - 4.0 PW, ED (N) 0.9 cm 0.6 - 1.0 SV 74 ml SV/bsa 32 ml/m^2 EDV, 2-p (N) 146 ml 62 - 150 ESV, 2-p (H) 71 ml 21 - 61 EF, 2-p (N) 52 % 52 - 72 SV, 2-p 75 ml EDV/bsa, 2-p (N) 63 ml/m^2 34 - 74 ESV/bsa, 2-p (N) 31 ml/m^2 11 - 31 SV/bsa, 2-p 32.6 ml/m^2 E', lat vicky, TDI (N) 11.1 cm/sec >=10.0 E/e', lat vicky, TDI 6 E', med vicky, TDI (N) 10.1 cm/sec >=7.0 E/e', med vicky, TDI 6 E', avg, TDI 10.6 cm/sec E/e', avg, TDI (N) 6 <=14 LVOT Value Ref Diam, S 2.1 cm Area 3.5 cm^2 Peak jose, S 1 m/sec VTI, S 21.3 cm Ventricular septum Value Ref IVS, ED (N) 0.7 cm 0.6 - 1.0 Right ventricle Value Ref MARY minor ax, A4C base (N) 4.1 cm 2.5 - 4.1 MARY minor ax, A4C mid (H) 4.2 cm 1.9 - 3.5 TAPSE, MM (N) 2.2 cm 1.7 - 3.1 Pressure, S 38 mm Hg S' lateral (N) 12.0 cm/sec 6.0 - 13.4 RVOT Value Ref Peak grad, S 2 mm Hg Left atrium Value Ref AP dim, ES (L) 2.8 cm 3.0 - 4.0 AP dim index (L) 1.2 cm/m^2 1.5 - 2.3 Vol, ES, 2-p 57 ml Vol/bsa, ES, 2-p (N) 25 ml/m^2 16 - 34 Right atrium Value Ref Area, ES, A4C (H) 20 cm^2 10 - 18 Vol, ES, 1-p A4C 57 ml Vol/bsa, ES, 1-p A4C (N) 25 ml/m^2 11 - 39 Aortic valve Value Ref Peak v, S 1.3 m/sec VTI, S 28.7 cm Mean grad, S 4 mm Hg Peak grad, S 7 mm Hg LVOT/AV, VTI ratio 0.74 ALISHA, VTI 2.6 cm^2 ALISHA/bsa, VTI 1.11 cm^2/m^2 Mitral valve Value Ref Peak E 0.62 m/sec Peak A 0.68 m/sec Decel time 325 ms PHT 95 ms Peak E/A ratio 0.9 MVA, PHT 2.3 cm^2 MVA/bsa, PHT 1 cm^2/m^2 Pulmonic valve Value Ref Peak v, S 1.08 m/sec Mean grad, S 2 mm Hg Peak grad, S 5 mm Hg Tricuspid valve Value Ref TR peak v (N) 2.7 m/sec <=2.8 Peak RV-RA grad, S 30 mm Hg Aortic root Value Ref Root diam, S 3.1 cm Ascending aorta Value Ref AAo AP diam, S 3.0 cm AAo AP diam/bsa, S 1.3 cm/m^2 -- -- Legend: (L) and (H) antonio values outside specified reference range. (N) thorne values inside specified reference range. Procedure data: Procedure information: Transthoracic echocardiography. Scanning wasperformed from the parasternal, apical, and subcostal acoustic windows.Intravenous contrast (Definity) was administered. Transthoracicechocardiography. Complete 2D, complete spectral Doppler, and color Doppler. Birthdate: Patient birthdate: 1965. Age: Patient is 56yr old. Sex: gender: male. Height: 182.9cm. 72in. Weight: 109.8kg. 241.5lb. Bodymass index: 32.8kg/m^2. Body surface area: 2.31m^2. Study date: Studydate: 07/11/2021. Study time: 08:21 AM. Prepared and Electronically Authenticated Mathew Birmingham [id number] Kamille Buckley NP US ORDERABLES INTERFACE SYSTEM Refer to clinic/hospital department * (ABNORMAL) LIPID RFLX (07/11/2021 7:04 AM CDT) [facility] CHOLESTEROL 177 <200 mg/dL 07/11/2021 7:46 AM CDT [facility] [employer] [facility] TRIGLYCERIDE 78 <150 mg/dL 07/11/2021 7:46 AM CDT [facility] [employer] [facility] HDL 48 40 - 59 mg/dL 07/11/2021 7:46 AM T [facility] LABORATORY [facility] LDL CALCULATED 113(H) <100 mg/dL 07/11/2021 7:46 AM T [facility] [employer] [facility] NON-HDL CHOLESTEROL 129 <130 mg/dL 07/11/2021 7:46 AM T [facility] [employer] [facility] Blood Venipuncture / Unknown 07/11/2021 7:04 AM CDT 07/11/2021 7:09 AM CDT Narrative [facility] LABORATORY SERVICES - . [facility] - 07/11/2021 7:46 AM CDT TOTAL CHOLESTEROL ??mg/dL ??Desirable <200 ??Borderline high 200-239 ??High >=240 TRIGLYCERIDES ??mg/dL ??Normal <150 ??Borderline high 150-199 ??High 200-499 ??Very high >=500 HDL CHOLESTEROL ??mg/dL ??Low <40 ??Normal 40-59 ??Desirable >=60 NON HDL CHOLESTEROL mg/dL ??Optimal <130 ??Near Optimal 130-159 ??Borderline High 160-189 ??Very High >=190 CALCULATED LDL mg/dL ??LDL <70, OPTIMAL if have Atherosclerotic cardiovascular disease (ASCVD) ??or intermediate or higher (>7.5%) 10 year risk of ASCVD including most adults ??with diabetes. ??LDL <100, Optimal in adult patients with low (<7.5%) 10 year ASCVD risk ??LDL 100-160, Suboptimal ??LDL >160, High ??LDL >190, Very high ATPIII Guidelines Reference Ranges for Lipid Panels (NCEP/AMA) . Kamille Buckley NP CHEMISTRY ORDERAB LES [facility] [employer] [facility] CLIA# [id number] [address] [facility] [address] [place] [id number] * BASIC METABOLIC PANEL (07/11/2021 7:04 AM CDT) SODIUM 140 136 - 145 mmol/L 07/11/2021 7:46 AM [facility] LABORATORY SERVICES - [facility] POTASSIUM 4.0 3.5 - 5.0 mmol/L 07/11/2021 7:46 AM [facility] [employer] LABORATORY SERVICES - . [facility] CHLORIDE 107 98 - 107 mmol/L 07/11/2021 7:46 AM [facility] [employer] LABORATORY SERVICES - [facility] CO2 25 22 - 29 mmol/L 07/11/2021 7:46 AM [facility] [employer] LABORATORY SERVICES - . [facility] CALCIUM 8.9 8.6 - 10.2 mg/dL 07/11/2021 7:46 AM [facility] [employer] LABORATORY SERVICES - [facility] BUN 9 6 - 20 mg/dL 07/11/2021 7:46 AM [facility] [employer] LABORATORY SERVICES - . [facility] CREATININE 1.01 0.67 - 1.17 mg/dL 07/11/2021 7:46 AM [facility] [employer] LABORATORY SERVICES - [facility] GLUCOSE 94 74 - 99 mg/dL 07/11/2021 7:46 AM [facility] [employer] LABORATORY SERVICES - . [facility] GFR >60 >=60 mL/min/1.7 3 sq meter 07/11/2021 7:46 AM [facility] [employer] LABORATORY SERVICES - [facility] Comment: eGFR calculated with 2020 CKD-EPI equation. ??Vegetarian diet, extremely high or low muscle mass, and may affect results. ??Cystatin C with Glomerular Filtration Rate is a suitable alternative for these patients. The National Kidney Foundation and the [place] Society of Nephrology (NKF-ASN) recommends using the 2020 CKD Epidemiology Collaboration (CKD-EPI) equation to calculate estimated glomerular filtration rate (eGFR). This equation is only applicable to [place] adult patients and removes race as a variable. ??Due to the variation of creatinine in different conditions, they recommend use of confirmatory tests such as eGFR from cystatin C or creatinine-cystatin GFR estimating equations, or direct measurement of clearance of an exogenous filtration marker in critical clinical decisions including but not limited to drug dosing, surgery, chemotherapy, and transplant referral. ANION GAP 8 8 - 16 mmol/L 07/11/2021 7:46 AM [facility] [employer] LABORATORY SERVICES - [facility] Blood Venipuncture / Unknown 07/11/2021 7:04 AM CDT 07/11/2021 7:09 AM T Kamille Buckley NP CHEMISTRY ORDERAB LES [facility] [employer] [facility] CLIA# [id number] [address] [place] [address] * TROPONIN 6 HR, 5TH GEN (07/10/2021 10:00 PM CDT) TROPONIN T, 6 HR 5TH GEN 9 <=15 ng/L 07/10/2021 11:47 PM CDT [facility] LABORATORY [facility] DELTA 6HR TROPONIN T 2 See Interp. 07/10/2021 11:47 PM CDT [facility] LABORATORY [facility] Blood Venipuncture / Unknown 07/10/2021 10:00 PM CDT 07/10/2021 11:14 PM CDT Narrative [facility] LABORATORY [facility] - 07/10/2021 11:47 PM CDT Troponin Detectable but normal range. Delta indeterminate. Delay in collection of timed specimen beyond recommended collection interval. Results must be interpreted in clinical context. Kamille Buckley BOBBIN COLLECTOR CHEMISTRY ORDERAB LES Performing Organization Address City/[facility]/ZIP Co de Phone Number [facility] [employer] [facility] CLIA# [id number] [address] [place] [address] * TSH (07/10/2021 5:58 PM CDT) TSH 1.01 0.27 - 4.20 uIU/mL 07/10/2021 7:47 PM CDT [facility] LABORATORY [facility] Blood Venipuncture / Unknown 07/10/2021 5:58 PM CDT 07/10/2021 6:58 PM CDT Kamille Buckley BOBBIN COLLECTOR CHEMISTRY ORDERAB LES [facility] [employer] [facility] CLIA# [id number] [address] [place] [address] * TROPONIN 2 HR, 5TH GEN (07/10/2021 5:58 PM CDT) TROPONIN T, 2 HR 5TH GEN 8 <=15 ng/L 07/10/2021 7:47 PM CDT [facility] LABORATORY [facility] DELTA 2HR TROPONIN T 1 See Interp. 07/10/2021 7:[address] [facility] Blood Venipuncture / Unknown 07/10/2021 5:58 PM CDT 07/10/2021 6:58 PM CDT Narrative [facility] LABORATORY [facility] - 07/10/2021 7:47 PM CDT Troponin Detectable but normal range. Delta not changing. Kamille Buckley NP CHEMISTRY ORDERAB LES [facility]# [id number] [address] [facility] [place] [address] * XR CHEST PA OR AP 1 VW (07/10/2021 4:02 PM CDT) Anatomical Region Laterality Modality Chest Computed Radiogr aphy 07/10/2021 4:02 PM CDT Impressions 07/10/2021 4:15 PM CDT IMPRESSION: No radiographic evidence of acute pulmonary disease. DICTATION LOCATION: Location 1 - [facility] Narrative 07/10/2021 4:15 PM CDT PROCEDURE/EXAM(S): XR CHEST PA OR AP 1 VW TIME/DATE: 07/10/2021 4:02 PM. CLINICAL INFORMATION & INDICATION: Male of 56 years age with history of Chest Pain. Chest pain, unspecified type ? COMPARISON STUDIES: May 21, 2016. FINDINGS: There is no focal consolidation, pleural effusion, or pneumothorax. The cardiomediastinal silhouette is normal. Procedure Note Kranthi Hardwick MD - 07/10/2021 PROCEDURE/EXAM(S): XR CHEST PA OR AP 1 VW TIME/DATE: 07/10/2021 4:02 PM. CLINICAL INFORMATION & INDICATION: Male of 56 years age with history of Chest Pain. Chest pain, unspecified type COMPARISON STUDIES: May 21, 2016. FINDINGS: There is no focal consolidation, pleural effusion, or pneumothorax. The cardiomediastinal silhouette is normal. IMPRESSION: No radiographic evidence of acute pulmonary disease. DICTATION LOCATION: Location 1 - [facility] Bell Deluca MD DIAGNOSTIC IMAGIN G ORDERABLES * D-DIMER (07/10/2021 2:34 PM CDT) D-DIMER QUANT 0.37 <0.42 ug/mL FEU 07/10/2021 3:[address] [facility] Comment: The DIC reference range is not [...] a non-high clinical pre-test probability assessment. Blood Venipuncture / Unknown 07/10/2021 2:34 PM CDT 07/10/2021 2:54 PM CDT Bell Deluca MD HEMATOLOGY ORDERA BLES [facility]# [id number] [address] [facility] [place] [address] * HEMOGLOBIN A1C (07/10/2021 1:56 PM CDT) Pathologist [facility] [place] HEMOGLOBIN A1C 5.4 <5.7 % 07/10/2021 6:22 PM CDT [facility] LABORATORY [facility] EST. AVG GLUCOSE, A1C 108 mg/dL 07/10/2021 6:22 PM CDT [facility] LABORATORY [facility] Blood Venipuncture / Unknown 07/10/2021 1:56 PM CDT 07/10/2021 2:25 PM CDT Narrative [facility] - 07/10/2021 6:22 PM CDT HGB A1C INTERPRETATION NORMAL: ? <5.7% PRE-DIABETES: 5.7 - 6.4% DIABETES: ? 6.5% OR GREATER Kamille Buckley NP CHEMISTRY ORDERAB LES Performing Organization Address [facility]/ZIP Co de Phone Number [facility] LABORATORY SERVICES [facility]# [id number] [address] [place] [address] * TROPONIN BASELINE, 5TH GEN (07/10/2021 1:56 PM CDT) TROPONIN T, BASELINE 5TH GEN 7 <=15 ng/L 07/10/2021 3:08 PM CDT [facility] Blood Venipuncture / Unknown 07/10/2021 1:56 PM CDT 07/10/2021 2:25 PM CDT [facility] - [facility] - 07/10/2021 3:08 PM CDT Troponin Detectable but normal range. Bell Deluca MD CHEMISTRY ORDERAB LES Performing Organization Address [facility] Co de Phone Number [facility] [employer] [facility]# [id number] [address] [place] [address] * (ABNORMAL) COMPREHENSIVE METABOLIC PANEL (07/10/2021 1:56 PM CDT) SODIUM 142 136 - 145 mmol/L 07/10/2021 3:08 PM CDT [facility] POTASSIUM 4.2 3.5 - 5.0 mmol/L 07/10/2021 3:08 PM CDT [facility] CHLORIDE 106 98 - 107 mmol/L 07/10/2021 3:08 PM CDT [facility] CO2 26 22 - 29 mmol/L 07/10/2021 3:08 PM CDT [facility] - [facility] CALCIUM 9.9 8.6 - 10.2 mg/dL 07/10/2021 3:08 PM [facility] - [facility] BUN 9 6 - 20 mg/dL 07/10/2021 3:08 PM [facility] CREATININE 1.04 0.67 - 1.17 mg/dL 07/10/2021 3:08 PM [facility] GLUCOSE 101(H) 74 - 99 mg/dL 07/10/2021 3:08 PM [facility] TOTAL PROTEIN 7.3 6.7 - 8.6 g/dL 07/10/2021 3:08 PM [facility] ALBUMIN 4.5 3.5 - 5.2 g/dL 07/10/2021 3:08 PM [facility] BILIRUBIN TOTAL 0.7 0.3 - 1.2 mg/dL 07/10/2021 3:08 PM [facility] ALKALINE PHOSPHATASE 48 40 - 129 U/L 07/10/2021 3:08 PM [facility] AST 28 <41 U/L 07/10/2021 3:08 PM [facility] ALT 31 <42 U/L 07/10/2021 3:08 PM [facility] GFR >60 >=60 mL/min/1. 73 sq meter 07/10/2021 3:08 PM [facility] Comment: eGFR calculated with 2020 CKD-EPI equation. ??Vegetarian diet, extremely high or low muscle mass, and may affect results. ??Cystatin C with Glomerular Filtration Rate is a suitable alternative for these patients. The National Kidney Foundation and the [place] [employer] Neph[employer] (NKF-ASN) recommends using the 1 CKD Epidemiology Collaboration (CKD-EPI) equation to calculate estimated glomerular filtration rate (eGFR). This equation is only applicable to [place] adult patients and removes race as a variable. ??Due to the variation of creatinine in different conditions, they recommend use of confirmatory tests such as eGFR from cystatin C or creatinine-cystatin GFR estimating equations, or direct measurement of clearance of an exogenous filtration marker in critical clinical decisions including but not limited to drug dosing, surgery, chemotherapy, and transplant referral. ANION GAP 10 8 - 16 mmol/L 07/10/2021 3:08 PM CDT [facility] LABORATORY SERVICES [facility] Blood Venipuncture / Unknown 07/10/2021 1:56 PM CDT 07/10/2021 2:25 PM CDT [facility] LABORATORY SERVICES [facility] - 07/10/2021 3:08 PM CDT Samples containing indocyanine green cause interferences on Total and/or Direct Bilirubin and must not be measured. Bell Deluca MD CHEMISTRY ORDERAB LES [facility] LABORATORY [facility] CLIA# [id number] [address] [place] [address] * (ABNORMAL) CBC WITH DIFFERENTIAL (07/10/2021 1:56 PM CDT) WBC 6.4 4.0 - 9.8 K/uL 07/10/2021 2:36 PM CDT [facility] LABORATORY SERVICES [facility] RBC 5.34 4.50 - 5.40 M/uL 07/10/2021 2:36 PM CDT [facility] LABORATORY SERVICES [facility] HEMOGLOBIN 16.7(H) 13.6 - 16.5 g/dL 07/10/2021 2:36 PM CDT [facility] LABORATORY SERVICES [facility] HEMATOCRIT 47.9 40.0 - 48.0 % 07/10/2021 2:36 PM CDT [facility] LABORATORY SERVICES [facility] MCV 89.7 82.0 - 99.0 fL 07/10/2021 2:36 PM CDT [facility] LABORATORY SERVICES - [facility] MCH 31.3 27.2 - 32.6 pg 07/10/2021 2:36 PM CDT [facility] LABORATORY SERVICES - [facility] MCHC 34.9 31.5 - 35.5 g/dL 07/10/2021 2:36 PM CDT [facility] LABORATORY SERVICES - [facility] RDW 11.8 11.5 - 14.5 % 07/10/2021 2:36 PM CDT [facility] - [facility] RDW-STDEV 38.6 37.1 - 48.7 fL 07/10/2021 2:36 PM CDT [facility] - [facility] PLATELETS 277 140 - 350 K/uL 07/10/2021 2:36 PM CDT [facility] - [facility] MPV 9.6 9.3 - 12.4 fL 07/10/2021 2:36 PM CDT [facility] - . [facility] NEUTROPHILS 67 % 07/10/2021 2:36 PM CDT [facility] - [facility] LYMPHOCYTES 23 % 07/10/2021 2:36 PM CDT [facility] - [facility] MONOCYTES 8 % 07/10/2021 2:36 PM CDT [facility] - [facility] EOSINOPHILS 1 % 07/10/2021 2:36 PM CDT [facility] - [facility] BASOPHILS 0 % 07/10/2021 2:36 PM CDT [facility] - . [facility] IMMATURE GRANULOCYTES 0 % 07/10/2021 2:36 PM CDT [facility] - . [facility] NEUTROPHIL ABSOLUTE 4.26 1.90 - 7.00 K/uL 07/10/2021 2:36 PM CDT [facility] - . [facility] LYMPHOCYTE ABSOLUTE 1.48 0.70 - 4.50 K/uL 07/10/2021 2:36 PM CDT [facility] - . [facility] MONOCYTE ABSOLUTE 0.53 0.10 - 1.30 K/uL 07/10/2021 2:36 PM CDT [facility] - . [facility] EOSINOPHIL ABSOLUTE 0.04 0.00 - 0.70 K/uL 07/10/2021 2:36 PM CDT [facility] - [facility] BASOPHILS ABSOLUTE 0.02 0.00 - 0.20 K/uL 07/10/2021 2:36 PM CDT [facility] - . [facility] IMMATURE GRANULOCYTES ABSOLUTE 0.02 0.00 - 0.03 K/uL 07/10/2021 2:36 PM CDT [facility] - . [facility] Blood Venipuncture / Unknown 07/10/2021 1:56 PM CDT 07/10/2021 2:25 PM CDT Bell Deluca MD HEMATOLOGY [facility]# [id number] [address] [place] [address] * EKG 12-LEAD (07/10/2021 1:52 PM CDT) 07/10/2021 1:52 PM CDT Narrative INTERFACE SYSTEM - 07/10/2021 3:57 PM CDT ? Stationary ECG Study ? [facility] ? Test Date: ?07/10/2021 1:52 PM Pat Name: ? MANISH CAMPBELL ? Department: ?? 41 ?Room: ? 26 26 Gender: ? M ?Tester Equipment: ?? [email or web address] : ?1965 ? Requested By: BELL DELUCA ?? Order Number: [id number] ?Reading MD: ?? Rajat ??Brayan ? Measurements Intervals ?[place] ? Rate: ? 68 ? P: ?36 CT: ? 192 ?QRS: ?-1 QRSD: ? 136 ?T: ?78 QT: ? 401 ? QTc: ?427 ? Interpretive Statements ? Sinus rhythm Left bundle branch block Electronically Signed On 07-10-2021 15:57:17 CDT by Rajat ??Schmidt Procedure Note Provider, Historical - 07/10/2021 Stationary ECG Study [facility] Test Date: 07/10/2021 1:52 PM Pat Name: MANISH CAMPBELL Department: 41 Room: 26 26 Gender: M Tester Equipment: [email or web address] : 1965 Requested By: BELL DELUCA Order Number: [id number] Regino MD: Rajat Schmidt Measurements Intervals [place] Rate: 68 P: 36 CT: 192 QRS: -1 QRSD: 136 T: 78 QT: 401 QTc: 427 Interpretive Statements Sinus rhythm Left bundle branch block Electronically Signed On 07-10-2021 15:57:17 CDT by Rajat Schmidt Protocol [facility] MD ECG ORDERABL ES INTERFACE SYSTEM Refer to clinic/hospital department documented in this encounter Visit Diagnoses Diagnosis Chest pain- Primary Chest pain, unspecified Chest pain, unspecified type LBBB (left bundle branch block) Other left bundle branch block Benign hypertension Essential hypertension, benign Palpitations documented in this encounter Administered Medications Inactive Administered Medications - up to 3 most recent administrations Medication Order MAR Action Action Date Dose Rate Site enoxaparin (LOVENOX) injection 40 mg 40 mg, subCUT, EVERY 24 HOURS, First dose on Sat07/10/21 at 1900, Until Discontinued, Routine, Indication: Prophylaxis of VTE, Dose to be adjusted per facility protocol? Yes Given 07/10/2021 6:22 PM CDT 40 mg Abdomen, Right Upper Quadrant perflutren lipid microspheres (DEFINITY) 1.1 mg/mL injection 2 mL 2 mL, IV, INTRA-PROCEDURE ONCE, 1 dose, Starting on Sat07/11/21 at 0906, Until Sat07/11/21 at 0906, Routine Contrast Given 07/11/2021 9:06 AM CDT 2 mL regadenoson (LEXISCAN) 0.4 mg/5 mL injection 0.4 mg, IV, INTRA-PROCEDURE ONCE, 1 dose, Starting on Sat07/11/21 at 1046, Until Sat07/11/21 at 1108, Routine Given 07/11/2021 11:08 AM CDT 0.4 mg sodium chloride 0.9% bolus solution 1,000 mL 1,000 mL, IV, ONE TIME ONLY, 1 dose, On Sat07/10/21 at 1445, at 2,000 mL/hr, Administer over 30 Minutes, Routine New Bag 07/10/2021 2:45 PM CDT 1,000 mL 2000 mL/hr sodium chloride flush injection 10 mL 10 mL, IV, ONE TIME ONLY, 1 dose, On Sat07/11/21 at 0930, Routine Given 07/11/2021 9:20 AM CDT 10 mL documented in this encounter Active and Recently Administered Medications Times are shown in CDT. Scheduled Medication Order 07/09/2021 07/10/2021 07/11/2021 aspirin (ECOTRIN EC) tablet 81 mg 81 mg, Oral, DAILY, First dose on Sat07/11/21 at 0900, Until Discontinued, Routine, Previous Med: aspirin (ECOTRIN EC) 81 mg Tablet, Delayed Release (E.C.) - Orig Sig - Take 81 mg by mouth daily. 0900 (Due) enoxaparin (LOVENOX) injection 40 mg 40 mg, subCUT, EVERY 24 HOURS, First dose on Sat07/10/21 at 1900, Until Discontinued, Routine, Indication: Prophylaxis of VTE, Dose to be adjusted per facility protocol? Yes 1821 (Given - Provider: Mike Cottrell RN) naloxone (NARCAN) 0.4 mg/mL injection 0.1 mg 0.1 mg, IV, SEE ADMIN INSTRUCTIONS, Starting on Sat07/10/21 at 1741, Until Sat07/11/21 at 1925, Routine perflutren lipid microspheres (DEFINITY) 1.1 mg/mL injection 2 mL (COMPLETED) 2 mL, IV, INTRA-PROCEDURE ONCE, 1 dose, Starting on Sat07/11/21 at 0906, Until Sat07/11/21 at 0906, Routine 0906 (Contrast Given - Provider: Rupal Pearl RDCS - Comment: Diluted bolus, well tolerated.) regadenoson (LEXISCAN) 0.4 mg/5 mL injection (COMPLETED) 0.4 mg, IV, INTRA-PROCEDURE ONCE, 1 dose, Starting on Sat07/11/21 at 1046, Until Sat07/11/21 at 1108, Routine 1108 (Given - Provid er: Una Triana RN) sodium chloride 0.9% bolus solution 1,000 mL (COMPLETED) 1,000 mL, IV, ONE TIME ONLY, 1 dose, On 5/2/22 at 1445, at 2,000 mL/hr, Administer over 30 Minutes, Routine 1445 (New Bag - Provider: Maricruz Contreras, RN)1515 (Stopped - Provider: Maricruz Contreras, RN) sodium chloride flush injection 10 mL (COMPLETED) 10 mL, IV, ONE TIME ONLY, 1 dose, On Sat07/11/21 at 0930, Routine 0920 (Given - Provid er: GLENIS Pate) PRN Medication Order 07/09/2021 07/10/2021 07/11/2021 acetaminophen (TYLENOL) tablet 650 mg 650 mg, Oral, EVERY 6 HOURS PRN, Starting on 07/10/21 at 1741, Until Sat07/11/21 at 1925, Other (See Comment), See admin instructions, Routine documented in this encounter Care Teams Kiss Setter Hand Relationship Specialty Start Date End Date Chirag Munroe MD [address] [place] [address] PCP - General Family Practice 05/21/16 documented as of this encounter
== END 2024-03-09 07:30 | disposition home or self-care (01) ==
PROVIDERS: PCP Family Medicine; Visit Provider Nurse Practitioner Family
DX: M54.41 Lumbago with sciatica, right side (principal); M47.896 Other spondylosis, lumbar region; M51.26 Other intervertebral disc displacement, lumbar region; M47.897 Other spondylosis, lumbosacral region; G89.29 Other chronic pain
CPT/HCPCS: 72148

== ENCOUNTER 2024-04-08 11:32 | Emergency (ER) | payer OTHER, SELFPAY ==
--- NOTE | ~2024-04-08 | CT_ITS ---
EXAMINATION: CT brain wo con DATE: 04/08/2024 14:52 INDICATION: Frontal headache TECHNIQUE: Computed tomography (CT) of the head was performed without intravenous contrast. Sagittal and coronal reconstructions were performed. The mA was adjusted according to patient size. Iterative reconstruction technique was employed. The dose-length product was 681.00 mGy-cm. COMPARISON: head CT dated 10/22/2023 FINDINGS: No acute intracranial hemorrhage, acute infarction or abnormal extra axial fluid collection. Ventricl es are normal and symmetric. No mass/mass effect. The orbits, paranasal sinuses and mastoid air cells are normal. IMPRESSION: 1. Normal head CT. Reviewed, dictated and finalized at location B. DESIGN ENGINEER IMPRESSION: 1. Normal head CT.
--- NOTE | ~2024-04-08 | XR_ITS ---
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 RESULT: Lines, tubes, and devices: None. Lungs and pleura: Clear. Cardiomediastinal silhouette: Stable. Other: No acute osseous or upper abdominal finding. IMPRESSION: No acute cardiopulmonary process. Reviewed, dictated and finalized at location K. RAFT MAGNETO MECHANIC
[2024-04-08 11:35] VITALS: BP 154/77; PULSE 84; RESP 16; TEMP 36.6; O2SAT 100
--- OUTSIDE RECORDS SUMMARY | 2024-04-08 12:53 | XMS_ITS | Referral Summary ---
Author Organization [facility] Address [address] [place] [address] Care Team Providers Care Residence Counselor Name Role Phone Unavailable Primary Care Provider Unavailabl e Source Comments [facility],non-owned Affiliates and Associated Physician Practices is amultiple site organization consisting of ambulatory clinics and hospital sitesin [place], [place], [place] and [place]. This disclosure is being madepursuant to the Care Everywhere program and may not contain all information available regarding this patient. Last updated 17.[facility] Social History Tobacco Use Types Packs/Day Years Used Date Smoking Tobacco: Never Assessed Sex and Gender Information Value Date Recorded Sex Assigned at Not on file Gender Identity Not on file Sexual Orientation Not on file Plan of Treatment Not on file
--- OUTSIDE RECORDS SUMMARY | 2024-04-08 12:54 | XMS_ITS | Continuity of Care Document ---
Author Name [facility] Organization [facility] Care Team Providers Care Electrical Logging Engineer Name Role Phone [facility] Unavailable Unavailable Problems Combined list of problems [...] Known Allergies Drug allergy (disorder) active 10/31/2010 [facility] [place], [place] Immunizations Combined list of available immunizations from the Department of Defense and Veterans Affairs facilities. Immunization Series Date Given Administered By Site Reaction Lot Number CVX Code Drug Outside Sales Associate Status Comments Source Influenza, seasonal, injectable, preservative free 2014 ALUL, () Not Given Influenza , seasonal, injectabl e, preservat lior free DoD Influenza, seasonal, injectable 0 2011 141 Sanofi Pasteur (PMC) complet ed Influenza , seasonal, injectabl e DoD influenza virus vaccine, live, attenuated, for intranasal use 1 2010 [id number] [employer]. (MED) complet ed influenza virus vaccine, live, attenuate d, for intranasa l use DoD Influenza, seasonal, injectable 0 2010 141 [employer]Dreams. (NOV) complet ed Influenza , seasonal, injectabl e DoD influenza virus vaccine, live, attenuated, for intranasal use 1 2009 [id number] [employer]. (MED) complet ed influenza virus vaccine, live, attenuate d, for intranasa l use DoD varicella virus vaccine 1 2009 UNK 21 Unknown (UNK) Not Given varicella virus vaccine DoD typhoid Vi capsular polysaccharid e vaccine 1 2009 [id number] Sanofi Pasteur (PMC) complet ed typhoid Vi capsular polysacch aride vaccine DoD tetanus toxoid, reduced diphtheria toxoid, and acellular pertu is vaccine, adsorbed 1 2009 [id number] [employer] (SKB) complet ed tetanus toxoid, reduced diphtheri a toxoid, and acellular pertussis vaccine, adsorbed DoD Novel influenza-H1N 1-09, injectable 1 2009 [id number] Unknown (UNK) comple t ed Novel influenza -B7N8-22, injectabl e DoD influenza virus vaccine, split virus (incl. purified surface antigen)-reti red CODE 1 2008 [id number] 15 [employer]ell[employer] (CSL) complet ed influenza virus vaccine, split virus (incl. purified surface antigen)- retired CODE DoD hepatitis B vaccine, adult dosage 3 2006 [id number] 43 [employer] (SKB) complet ed hepatitis B vaccine, adult dosage DoD hepatitis A vaccine, adult dosage 3 2006 [id number] 52 [employer] (SKB) complet ed hepatitis A vaccine, adult dosage DoD influenza virus vaccine, live, attenuated, for intranasal use 1 2005 [id number] 111 [employer]. (MED) complet ed influenza virus vaccine, live, [...] of diphtheria toxoid) 1 2004 Unknown, Provider [id number] Sanofi Pasteur ([facility]) complet ed tetanus and diphtheri a toxoids, adsorbed, preservat lior free, for adult use (2 Lf of tetanus toxoid and 2 Lf of diphtheri a toxoid) DoD typhoid Vi capsular polysaccharid e vaccine 1 2004 [id number] Sanofi Pasteur ([facility]) complet ed typhoid Vi capsular polysacch aride vaccine DoD hepatitis A and hepatitis B vaccine 1 2004 [id number] 104 Unknown (UNK) complet ed hepatitis A and hepatitis B vaccine DoD influenza virus vaccine, split virus (incl. purified surface antigen)-reti red CODE 0 1983 Unknown, Provider UNK 15 Sanofi Pasteur ([facility]) complet ed influenza virus vaccine, split [...] and 2 Lf of diphtheri a toxoid) [facility] meningococcal polysaccharid e vaccine (MPSV4) 0 1982 [...] ADM Date DC Date Status Disposition Source [facility] Ahsan Gomez [facility] [place]Immuni [place]ations) OUTPATIENT [id number] NATALIE JASMINE 12/26 Released w/o Limitations [facility] Ahsan Gomez [facility] JESSIE Mao(Immu nizatio ns) [facility] Ahsan Gomez [facility] [place]ESSIE Mao(C-TMC Er Module) OUTPATIENT [id number] GRECIA Miller 06/05 Sick at Home/Quarter s [facility] Ahsan Gomez [facility] [place]C-[place] C [place] Module) [facility] Ahsan Gomez [facility] [place]) OUTPATIENT [id number] [facility] GA MATT 06/25 Released with Work/Duty Limitations [facility] Ahsan Gomez [facility] JESSIE Mao(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 Center) [facility] Ahsan [facility] JESSIE Mao([facility]) OUTPATIENT [id number] DD 2900 [facility] GA MATT 06/25 Released w/o Limitations [facility] Ahsan Jason [facility] JESSIE Mao(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 Center) [facility]an [facility] JESSIE Mao([facility] Center) OUTPATIENT [id number] DD 0929 [facility] [place] MATT 06/25 Released w/o Limitations [facility] Ahsan Jason [facility] JESSIE Mao(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 Center) [facility]hsan [facility] JESSIE Mao(IEP Hearing Conservat ion Exam) OUTPATIENT [id number] SHALINI Donahue 06/25 Released w/o Limitations [place]IE[place]am[place]Room Service Att[place] Medicine[place] OUTPATIENT [id number] CHECK BLOOD PRESSUR E RESULTS AND LABS BRYONREGAN RosenbergREY 07/03 Released w/o Limitations [place] [place] [facility] [facility] [place]) OUTPATIENT [id number] DEMOB, DD 2697 [facility] FORM SHAKA GA O 03/13 Released w/o Limitations 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) [place] OUT[place]IENT [id number] [facility] SURJIT TAYLOR 03/13 Released [place]/o Limitations [place] Hearing Conservat ion) OUTPATIENT [id number] MARIA DEL CARMEN BRITO 12/15 Released w/[place] Limitations [place]SR[place]) OUTPATIENT [id number] DEAN KENNEDY 01/23 [place]ased [place] Limitations [place]) [place] [id number] ER PT/Anxi ety with chest discomf ort LILLIE JOLLEY 01/23 [place]ased [place] Limitations [place] OUTPATIENT [id number] pt here to see sol WOODS s visit. GAVIN MARVIN 01/23 [place]ased [place]/o Limitations [place] [place] OUTPATIENT [id number] Rx refill. NASIOTIS, GAVIN 02/23 [place]ased [place]/o Limitations [place] [place] OUTPATIENT [id number] Rx refill. NASIOTIS, GAVIN 04/05 [place]ased w/o Limitations [place] [place]) OUT[place]IENT [id number] RAO QUIÑONEZ 04/06 Sick at Home/Quarter [place] OUTPATIENT [id number] BP eval. NASIOTIS, GAVIN 04/13 [place]ased [place]o Limitations [place] [place] OUTPATIENT [id number] f/u BP. NASIOTIS, GAVIN 04/18 [place]ased [place]o Limitations [place] [place] OUTPAT[facility] [id number] Blood Pressur e Check BULLLINA ZHOU JULY 10 Released [place]/o Limitations [place] [place] OUTPATIENT [id number] c/o sinus infecti on. NASIOTIS, GAVIN 04/21 [place]ased [place]itations [place] [place] Physical [facility]am [facility]) [place] [id number] [place] HIV/PHA NAZIA DIANE 04/26 [place]ased [place]o Limitations [place] Phys[facility]am [facility]) [place] OUTPATIENT [id number] Rx refill. MYRIAM UY 06/28 [place]ased [place]/o Limitations [place] [place] OUTPATIENT [id number] f/u MYRIAM YU 06/29 [place]ased [place]o Limitations [place] [place] OUTPATIENT [id number] f/u previou s visit. MYRIAM YU 07/04 [place]ased [place]/o Limitations [place] [place] OUTPATIENT [id number] c/o reactio n to Rx, 1x BP check. MYRIAM YU 08/02 [place]ased [place]o Limitations [place] [place]IENT [id number] ESTER GAUTHIER 08/04 [place]ased w/[place] Limitations [place] [id number] SERA BONILLA 09/25 Released with Work/Duty Limitations [place] OUTPATIENT [id number] Rx refill. WHITNEY RUANO 09/28 [place]ased [place]o Limitations [place] [place] OUTPATIENT [id number] follow- up MYRIAM YU 10/27 [place]ased [place]o Limitations [place] [place] [employer] OUTPATIENT [id number] NADEGE Juárez 10/31 [place] Limitations 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 [employer] OUTPATIENT [id number] c/o sinus infecti on. MYRIAM YU 10/31 [place]ased w/o Limitations [place] Outpatient Encounter [id number] 3 09/03 [facility] Procedures Combined list of: 1) Procedures from Department of [facility] Affairs facilities going back up to thelast 18 months, not all [place] non-surgical procedures are included; 2) All procedures from the Department of Defense facilities. Procedure Procedure Type Code Date Perfomer Comments Sour e ELECTROCARDIOGRAM, ROUTINE ECG WITH AT LEAST 12 LEADS; WITH INTERPRETATION AND REPORT [facility] FITTING OF SPECTACLES, EXCEPT FOR APHAKIA; MONOFOCAL [facility] IMMUNIZATION ADMINISTRATION BY INTRANASAL OR ORAL ROUTE; 1 VACCINE (SINGLE OR COMBINATION VACCINE/TOXOID) [facility] EAR MOLD/INSERT, NOT DISPOSABLE, ANY TYPE [facility] TETANUS AND DIPHTHERIA TOXOIDS (TD) ADSORBED WHEN ADMINISTERED TO INDIVIDUALS 7 YEARS OR OLDER, FOR INTRAMUSCULAR USE [facility] EDUCATIONAL SUPPLIES, SUCH BOOKS, TAPES, AND PAMPHLETS, FOR THE PATIENT'S EDUCATION AT COST TO PHYSICIAN OR OTHER QUALIFIED HEALTH PER DIEM CLERK [facility] ELECTROCARDIOGRAM, ROUTINE ECG WITH AT LEAST 12 LEADS; WITH INTERPRETATION AND REPORT [facility] COLLECTION OF VENOUS BLOOD BY VENIPUNCTURE [facility] BLOOD PRESSURE MEASURED (CKD)(DM) [facility] CARDIOVASCULAR STRESS TEST USING MAXIMAL OR SUBMAXIMAL TREADMILL OR BICYCLE EXERCISE,CONTINUOUS ELECTROCARDIOGRAPHIC MONITORING,AND/OR PHARMACOLOGICAL STRESS;W SUPERVISION,INTERPRETAT ION AND REPORT [facility] INDIVIDUAL PSYCHOTHERAPY, INSIGHT ORIENTED, BEHAVIOR MODIFYING AND/OR SUPPORTIVE, IN AN OFFICE OR OUTPATIENT FACILITY, APPROXIMATELY 20 TO 30 MINUTES [id number] WITH THE PATIENT [facility] INTRODUCTION OF NEEDLE OR INTRACATHETER, VEIN [facility] INFLUENZA VIRUS VACCINE, TRIVALENT, LIVE (LAIV3), FOR INTRANASAL USE [facility] SKIN TEST; TUBERCULOSIS, INTRADERMAL [facility] AUDIOMETRIC TESTING OF GROUPS [facility] TYPHOID VACCINE, ACETONE-KILLED, DRIED (AKD), FOR SUBCUTANEOUS USE (U.S. ) [facility] SCREENING TEST OF VISUAL ACUITY, QUANTITATIVE, BILATERAL [facility] Venipuncture Venipuncture 00464 NAZIA DIANE [facility] Pulse Oximetry Pulse Oximetry 64842 LILLIE JOLLEY [facility] Cardiovascular Stre Test Cardiovascular Stress Test 44728 LILLIE JOLLEY [facility] Clinical Social Work Individual Outpatient Counseling 30 Minutes Clinical Social Work Individual Outpatient Counseling 30 Minutes 51483 JESSA PULIDO Individual counseling with . Supportive counseling and coping skills were reinforced. Total time 20 minutes [facility] Audiometry Group Testing Audiometry Group Testing 81434 RYAN WEBSTER [facility] Screening Test Of Visual Acuity, Quantitative, Bilateral Screening Test Of Visual Acuity, Quantitative, Bilateral 93810 LAILA MAK Determination Of Refractive State Determination Of Refractive State 08969 LAILA MAK [facility] Spectacles Services Fitting Monofocal Except For Aphakia Spectacles Services Fitting Monofocal Except For Aphakia 14010 LAILA MAK [facility] Threshold Audiogram (Pure Tone) Threshold Audiogram (Pure Tone) 50064 SHALINI ISBELL [facility] Ear mold/insert, not disposable, any type SHALINI ISBELL [facility] Immunization Administration By Injection, One Vaccine Immunization Administration By Injection, One Vaccine 07356 TATIANA LUX [facility] Td Vaccine Td Vaccine 73556 TATIANA LUX [facility] Social History Combined list of available smoking, tobacco, and other social history from Department of Defense and Veterans Affairs facilities. Social History Type Response Date Comment Sour e This section is an empty social history section. [facility]
--- OUTSIDE RECORDS SUMMARY | 2024-04-08 12:54 | XMS_ITS | Patient Health Summary ---
Author Organization [facility] Address [address] [place] [address] Care Team Providers Care Emergency Spill Response Technician Name Role Phone Unavailable Primary Care Provider Unavailabl e Note from [facility],non-owned Affiliates and Associated Physician Practices is amultiple site organization consisting of ambulatory clinics and hospital sitesin [place], [place], [place] and [place]. This disclosure is being madepursuant to the Care Everywhere program and may not contain all information available regarding this patient. Last updated 17.[facility] Social History Tobacco Use Types Packs/Day Years Used Date Smoking Tobacco: Never Assessed Sex and Gender Information Value Date Recorded Sex Assigned at Not on file Gender Identity Not on file Sexual Orientation Not on file Procedures * DERMATOPATHOLOGY(Performed 08/28/2021) Results * DERMATOPATHOLOGY (08/28/2021 12:00 AM CDT) Case Report Dermatopathology Report ? Case: [id number] ? Authorizing Provider: ??Kingsley Rabago MD ?Collected: ? 08/28/2021 12:00 AM ? Ordering Location: ? [facility] Care DermPath Lab ?Received: ?08/28/2021 03:44 [...] Clinical History Infection vs other. Path # [id number]. 2 5:08 PM T DERMATOPATHOLOGY LABORATORY Gross Description Specimen A: Received is one formalin filled container labeled with the patient's name and designated right FA. The specimen consists of a shave biopsy measuring 2m1s4cc. Jar 0. 2 5:08 PM CDT DERMATOPATHOLOGY [...] characteristic determined by the Dermatopathology Laboratory at [facility], directed by Dr. Sean Jay. These tests need not be, and therefore are not, approved by the [place] Food and Drug Administration. The tests are used for clinical purposes. Billing Codes Specimen Charges Stain Charges 63402 1 63455 62808 1 1 2 5:08 PM CDT DERMATOPATHOLOGY LABORATORY Embedded Images 2 5:08 PM CDT DERMATOPATHOLOGY LABORATORY Pathology/Cytolog y TISSUE SPECIMEN FROM SKIN / Unknown 08/28/2021 08/28/2021 3:44 PM CDT Kingsley Rabago MD LAB - PATHOLOGY/CYTO LOGY ORDERABLES DERMATOPATHOLOGY LABORATORY [facility] - Department of Dermatology [facility] [address] [place] [address], [address] [phone]
--- OUTSIDE RECORDS SUMMARY | 2024-04-08 12:54 | XMS_ITS | Clinical Summary ---
Author Organization [facility] Address [address], [facility] [address] [place] [address] Phone Care Team Providers Care Heavy Equipment Mechanic Name Role Phone Brian Boyd MD Primary Care Provider Allergies No known active allergies Medications aspirin EC 81 MG Tablet Delayed Response Take 81 mg by mouth daily. 3 05/07/2017 Active acetaminophen (TYLENOL) 500 MG Tablet Take 1,000 mg by mouth Daily as needed. Active Multiple Vitamin (MULTI-VITAMIN PO) Take 1 Tab by mouth daily. Active [place]gart-3 Fatty Acids (OMEGA 3 PO) Take 1 [...] Comments Blood Pressure 126/91 03/17/2018 9:18 AM LATHE SANDER Pulse 62 03/17/2018 9:18 AM LATHE SANDER Temperature 36 ??C (96.8 ??F) 03/17/2018 9:18 AM LATHE SANDER Respiratory Rate 14 03/17/2018 9:18 AM LATHE SANDER Oxygen Saturation 100% 03/17/2018 9:18 AM LATHE SANDER Inhaled Oxygen Concentration - - Weight 106.6 kg (235 lb) 03/17/2018 6:25 AM LATHE SANDER Height 188 cm (6' 2 ) 03/17/2018 6:25 AM LATHE SANDER Body Mass Index 30.17 03/17/2018 6:25 AM LATHE SANDER Plan of Treatment Health Maintenance Due Date [...] this topic Medical Devices Implanted Type Area Health Outcomes Liaison Device Identifier Shelf Expiration Date Model / Serial / Lot Clip 360 Resolution 235cm - [id number] Implanted:Qty: 1 on 03/17/2018 by Donovan Silver, at [facility] IMPLANT [employer] 04/21/2020 [id number] / [id number] / [id number] Clip 360 Resolution 235cm - [id number] Implanted:Qty: 1 on 03/17/2018 by Donovan Silver, at [facility] [employer]PL[employer] 10/15/2020 [id number] / [id number] / [id number] Insurance [facility] Care Teams Heavy Equipment Mechanic Relationship Specialty Start Date End Date Brian Boyd MD PCP - General Family Medicine 05/01/17
--- OUTSIDE RECORDS SUMMARY | 2024-04-08 12:54 | XMS_ITS | Clinical Summary ---
Author Organization [facility] Address [address] [place] [address] Care Team Providers Care Saxophone Assembler Name Role Phone Unavailable Primary Care Provider Unavailabl e Source Comments [facility],non-owned Affiliates and Associated Physician Practices is amultiple site organization consisting of ambulatory clinics and hospital sitesin [place], [place], [place] and [place]. This disclosure is being madepursuant to the Care Everywhere program and may not contain all information available regarding this patient. Last updated 17.[facility] Social History Tobacco Use Types Packs/Day Years [...] of 3 - 19+ 3-dose series) 1983 PNEUMOCOCCAL VACCINE 50+ (1 of 1 - PCV) 2014 ZOSTER VACCINE (1 of 2) 2014 COVID-19 VACCINE ( - 2023-2 5 season) 2023 INFLUENZA VACCINE (#1) 2023 DEPRESSION SCREENING 03/11/2024 HIB VACCINE Aged Out No longer eligi ble based on patient's age to complete this topic HPV VACCINE Aged Out No longer eligi ble based on patient's age to complete this topic MENINGOCOCCAL (Group B) VACCINE Aged Out No longer eligible based on patient's age to complete this topic MENINGOCOCCAL VACCINE Aged Out No kaden yissel eligible based on patient's age to complete this topic PNEUMOCOCCAL VACCINE Aged Out No long er eligible based on patient's age to complete this topic
--- OUTSIDE RECORDS SUMMARY | 2024-04-08 12:54 | XMS_ITS | Continuity of Care Document ---
Author Organization [facility] Address [address] [place] [address] Phone Care Team Providers Care Solution Maker Name Role Phone Soo Goodman Unavailable Unavailable Advance Directives Directive Yes / No Effective Date File Name No Information Encounters Encounter Description Practice Location Reason(s) For Visit Diagnoses Date Provider Providers Copied on Encounter [facility], [address], [place], [place], [id number], [place] tel:[phone] [facility] No Information Sep-0 2-200 3 Maxine Vann. [address], [place], [address], [place]. tel:[phone] Family History Family Member Type Diagnosis Age At Onset No Information Payers Payer name Insurance type Covered green party ID Authoriza tion(s) [facility] Commercial CI [id number] Social History Type Description Quantity Date Captured [...]
--- OUTSIDE RECORDS SUMMARY | 2024-04-08 12:54 | XMS_ITS | Clinical Summary ---
Author Organization [facility] Address [address] [place] [address] Phone Care Team Providers Care Laminating Press Operator Name Role Phone Chirag Munroe MD Primary Care Provider [phone] Allergies No known active allergies Medications aspirin (ECOTRIN EC) 81 mg Tablet, Delayed [...] at Not on file Legal Sex Male 4:38 PM CDT Gender Identity Not on file [...] on patient's age to complete this topic Insurance [facility] [employer] PPO Advance Directives For more information, please contact: [phone] * Full Code (Latest Code Status on File) Date Activated Date Inactivated Comments 07/10/2021 5:47 PM 07/11/2021 7:30 PM * Full Code Date Activated Date Inactivated Comments 05/21/2016 8:49 PM 05/22/2016 6:29 PM Care Teams Laminating Press Operator Relationship Specialty Start Date End Date Chirag Munroe MD [address] [place] [phone] PCP - General Family Practice 05/21/16
--- OUTSIDE RECORDS SUMMARY | 2024-04-08 12:54 | XMS_ITS | Encounter Summary ---
Author Organization [facility] Address [address] [place] [address] Care Team Providers Care Sap Solution Manager Consultant Name Role Phone Unavailable Primary Care Provider Unavailabl e Encounter Details Date Type Department Care Team (Late st Contact Info) Description 08/28/2021 Lab Requisition [facility] Care DermPath Lab [address] [place] [address] Kingsley Rabago MD [address] [place] [address] Social History Tobacco Use Types [...] CDT) Case Report Dermatopathology Report ? Case: [id number] ? Authorizing Provider: ??Kingsley Rabago MD ?Collected: [...] Clinical History Infection vs other. Path # [id number]. 2 5:08 PM T DERMATOPATHOLOGY LABORATORY Gross Description Specimen A: Received is one formalin filled container labeled with the patient's name and designated right FA. The specimen consists of a shave biopsy measuring [id number]. Jar 0. 2 5:08 PM T DERMATOPATHOLOGY [...] purposes. Billing Codes Specimen Charges Stain Charges 96549 1 11977 16963 1 1 2 5:08 PM CDT DERMATOPATHOLOGY LABORATORY Embedded Images 2 5:08 PM CDT DERMATOPATHOLOGY LABORATORY Pathology/Cytolog y TISSUE SPECIMEN FROM SKIN / Unknown 08/28/2021 08/28/2021 3:44 PM CDT Kingsley Rabago MD LAB - PATHOLOGY/CYTO LOGY ORDERABLES DERMATOPATHOLOGY LABORATORY [facility] - Department of Dermatology [address], [address] [phone] documented in this encounter Visit Diagnoses Not on filedocumented in this encounter
--- NOTE | 2024-04-08 14:34 | ED.RECABL ---
HPI - Recheck/Abnormal Lab/Rx General Chief Complaint: Recheck/Abnormal Lab/Rx Stated Complaint: htn Focused HPI: 58 y/o M presents to the ED for HTN. Pt states he was at his pain management this morning procedure and it was a max of 168/106. Pt states he went home and took his BP on his wrist and it came down some but he began to feel like crap. He is reporting a frontal headache, nausea, generalized malaise, intermittent left sided chest pain. Denies aggravating or alleviating factors. States he believes the chest pain is gas. Took tylenol with some improvement. States he is concerned he has end-organ damage. GENERAL: Well-appearing, well-nourished, and in no acute distress. HEAD: Normocephalic, atraumatic. CHEST: Clear to auscultation. ?No respiratory distress. HEART: Regular rate and rhythm.? NEURO: ?Alert and oriented x3. Patient screened in triage and initial orders placed.? ?Additional care and disposition to be based upon?diagnostic testing and treatment. Related Data Home Medications ?Medication ?Instructions ?Recorded ?Confirmed ?Last Taken ?Type doxycycline hyclate 100 mg tablet 100 mg PO DAILY PRN scalp 04/02/24 04/02/24 Unknown History cellulitis gabapentin 100 mg capsule 200 mg PO QHS 04/02/24 04/02/24 Unknown History Allergies Allergy/AdvReac Type Severity Reaction Status Date / Time atorvastatin Allergy Unknown Joint Pain Verified 04/02/24 10:23 [facility] Past Medical History Medical History (Updated 04/02/24 @ 12:28 by Lindsey Boyd MD) COVID-19 (~12/2020) Chronic neck pain SYL (obstructive sleep apnea) Cellulitis of head or scalp LBBB (left bundle branch block) Pulmonary nodules Hx of malignant neoplasm of colon Hyperlipidemia Chronic low back pain with right-sided sciatica Surgical History Surgical History No pertinent past surgical history Family History Family History Grandparent Diabetes mellitus Other Diabetes mellitus Social History Social History Years smoked: 2 Smoking status: Former smoker Tobacco type: cigarettes Second hand tobacco smoke exposure: No Smoking end date: 03/11/03 Alcohol intake: never Substance use: never Substance use type: does not use Lack of Transportation: No Lack of Food: Never True Current Housing: I Have Housing Concerned About Future Housing: No Difficulty Paying Gas/Electric Bills: No Difficulty Paying for Meds: No Currently Unemployed: No Education: High School Diploma/GED Difficulty w/ Childcare or Family Care: No Living arrangements: with family Gender identity (if verbalized by the patient): Male Spiritual care concerns: No Course Vital Signs Vital signs: Vital Signs Temperature 97.9 F 04/08/24 11:35 Pulse Rate 84 04/08/24 11:35 Respiratory Rate 16 04/08/24 11:35 Blood Pressure 154/77 H 04/08/24 11:35 Pulse Oximetry 100 04/08/24 11:35 Temperature 97.9 F 04/08/24 11:35 Pulse Rate 84 04/08/24 11:35 Respiratory Rate 16 04/08/24 11:35 Blood Pressure 154/77 H 04/08/24 11:35 Pulse Oximetry 100 04/08/24 11:35 Discharge Plan Discharge Patient Language: Malaysian Prescriptions: No Action doxycycline hyclate 100 mg tablet 100 mg PO DAILY PRN (Reason: scalp cellulitis) gabapentin 100 mg capsule 200 mg PO QHS aspirin [Enteric Coated Aspirin] 81 mg tablet,delayed release (DR/EC) 81 mg PO DAILY Qty: 90 3RF Follow-up/Referrals: Lindsey Boyd MD [Primary Care Provider] -
--- NOTE | 2024-04-08 14:37 | ECG_ITS ---
Test Date: 2024-04-08 15:18:27 Measurements Intervals [place] Rate: 75 P: 41 NC: 190 QRS: 32 QRSD: 137 T: 70 QT: 418 QTc: 468 Interpretive Statements SINUS RHYTHM LEFT BUNDLE BRANCH BLOCK [120+ ms QRS DURATION, 80+ ms Q/S IN V1/V2, 85+ ms R IN I/aVL/V5/V6] Compared to ECG 10/22/2023 11:44:54 No significant changes Electronically Signed On 04-09-2024 10:56:42 [facility]USHER HAND by Sylvain Madrid M.D.
[2024-04-08 15:24] VITALS: BP 145/92
[2024-04-08 15:32] LABS: Basophils Percent Auto 0.2 % (0.2-1.2); Hematocrit 48.6 % (42.0-52.0); Hemoglobin 16.6 g/dL (14.0-18.0); Immature Granulocyte Absolute 0.02 K/mm3 (0.00-0.031); Immature Granulocyte Percent A 0.2 % (0-0.5); Lymphocytes Absolute Auto 0.59 K/mm3 (0.9-3.2); Lymphocytes Percent Auto 6.2 % (18.3-44.2); Mean Corpuscular HGB Conc 34.2 g/dl (32-36); Mean Corpuscular Hemoglobin 31.3 pg (26-34); Mean Corpuscular Volume 91.5 fl (80-100); Mean Platelet Volume 9.2 fl (7.4-10.4); Monocytes Absolute Auto 0.1 K/mm3 (0.1-0.6); Monocytes Percent Auto 0.6 % (2.6-8.5); Neutrophils Absolute Auto 8.8 K/mm3 (1.3-6.7); Neutrophils Percent Auto 92.8 % (45.5-73.1); Platelet Count Result 242 k/mm3 (150-375); Red Blood Count 5.31 M/mm3 (4.6-6.20); Red Cell Distribution Width 12.1 % (11.5-14.5); White Blood Count 9.5 K/mm3 (4.5-10.0)
[2024-04-08 15:47] LABS: INR 0.9; Prothrombin Time 12.9 Seconds (11.1-14.7)
[2024-04-08 15:48] LABS: Partial Thromboplastin Time 28.5 Seconds (22.3-36.8)
--- OUTSIDE RECORDS SUMMARY | 2024-04-08 16:06 | XMS_ITS | Continuity of Care Document ---
Author Name [facility] Organization [facility] Care Team Providers Care Stitching Machine Operator Name Role Phone [facility] Unavailable Unavailable Problems Combined list of problems [...] Known Allergies Drug allergy (disorder) active 10/31/2010 [facility] [place] Immunizations Combined list of available immunizations from the Department of Defense and Veterans Affairs facilities. Immunization Series Date Given Administered By Site Reaction Lot Number CVX Code Drug College Or University Department Head Status Comments Source Influenza, seasonal, injectable, preservative free 2014 ALUL, () Not Given Influenza , seasonal, injectabl e, preservat lior free DoD Influenza, seasonal, injectable 0 2011 141 Sanofi Pasteur (PMC) complet ed Influenza , seasonal, injectabl e DoD influenza virus vaccine, live, attenuated, for intranasal use 1 2010 [id number] Vox Media. (MED) complet ed influenza virus vaccine, live, attenuate d, for intranasa l use DoD Influenza, seasonal, injectable 0 2010 141 [id number]. (NOV) complet ed Influenza , seasonal, injectabl e DoD influenza virus vaccine, live, attenuated, for intranasal use 1 2009 [id number] 111 [employer]. (MED) complet ed influenza virus vaccine, live, attenuate d, for intranasa l use DoD varicella virus vaccine 1 2009 UNK 21 Unknown (UNK) Not Given varicella virus vaccine DoD typhoid Vi capsular polysaccharid e vaccine 1 2009 [id number] Sanofi Pasteur (PMC) complet ed typhoid Vi capsular polysacch aride vaccine DoD tetanus toxoid, reduced diphtheria toxoid, and acellular pertu is vaccine, adsorbed 1 2009 [id number] Comp[employer] (SKB) complet ed tetanus toxoid, reduced diphtheri a toxoid, and acellular pertussis vaccine, adsorbed DoD Novel influenza-H1N 1-09, injectable 1 2009 [id number] Unknown (UNK) comple t ed Novel influenza -P3Y2-53, injectabl e DoD influenza virus vaccine, split virus (incl. purified surface antigen)-reti red CODE 1 2008 [id number] 15 [employer]. (CSL) complet ed influenza virus vaccine, split virus (incl. purified surface antigen)- retired CODE DoD hepatitis B vaccine, adult dosage 3 2006 [id number] 43 [employer] (SKB) complet ed hepatitis B vaccine, adult dosage DoD hepatitis A vaccine, adult dosage 3 2006 [id number] 52 [employer] (SKB) complet ed hepatitis A vaccine, adult dosage DoD influenza virus vaccine, live, attenuated, for intranasal use 1 2005 [id number] 111 [employer]. (MED) complet ed influenza virus vaccine, live, [...] of diphtheria toxoid) 1 2004 Unknown, Provider [id number] Sanofi Pasteur ([facility]) complet ed tetanus and diphtheri a toxoids, adsorbed, preservat lior free, for adult use (2 Lf of tetanus toxoid and 2 Lf of diphtheri a toxoid) DoD typhoid Vi capsular polysaccharid e vaccine 1 2004 [id number] Sanofi Pasteur ([facility]) complet ed typhoid Vi capsular polysacch aride vaccine DoD hepatitis A and hepatitis B vaccine 1 2004 [id number] 104 Unknown (UNK) complet ed hepatitis A and hepatitis B vaccine DoD influenza virus vaccine, split virus (incl. purified surface antigen)-reti red CODE 0 1983 Unknown, Provider UNK 15 Sanofi Pasteur ([facility]) complet ed influenza virus vaccine, split virus [...] and 2 Lf of diphtheri a toxoid) [facility] meningococcal polysaccharid e vaccine (MPSV4) 0 1982 [...] ADM Date DC Date Status Disposition Source [facility] Ahsan Gomez [facility] [place](Immuni [place]ations) OUTPATIENT [id number] NATALIE JASMINE 12/26 Released w/o Limitations [facility] Ahsan Gomez [facility] JESSIE Mao(Immu nizatio ns) [facility] Ahsan Gomez [facility] JESSIE Mao(C-TMC Er Module) OUTPATIENT [id number] GRECIA Miller 06/05 Sick at Home/Quarter s [facility] Ahsan Gomez [facility] [place]C-TM C [place] Module) [facility] Ahsan Gomez [facility] [place] [place] [facility] [place]) OUTPATIENT [id number] [facility] GA MATT 06/25 Released with Work/Duty Limitations [facility] Ahsan Gomez [facility] JESSIE Mao(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 Center) [facility] Ahsan [facility] JESSIE Mao([facility] Center) OUTPATIENT [id number] DD 2900 [facility] [place] MATT 06/25 Released w/o Limitations [facility] Ahsan Jason [facility] JESSIE Mao(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 Center) [facility] Ahsan [facility] JESSIE Mao([facility] Center) OUTPATIENT [id number] DD 4284 [facility] [place] MATT 06/25 Released w/o Limitations [facility] Ahsan Jason [facility] JESSIE Mao(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 Center) [facility] Ahsan [facility] JESSIE Mao(IEP Hearing Conservat ion Exam) OUTPATIENT [id number] SHALINI Donahue 06/25 Released w/o Limitations [place]Behavioral Techn[place] OUTPATIENT [id number] CHECK BLOOD PRESSUR E RESULTS AND LABS BRYONREGAN RosenbergREY 07/03 Released w/o Limitations [place]) OUTPATIENT [id number] DEMOB, DD 2697 [facility] [place] O 03/13 Released [place] Limitations 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 OUTPATIENT [id number] [facility] SURJIT TAYLOR 03/13 Released w/o Limitations [place] Hearing Conservat ion) OUTPATIENT [id number] MARIA DEL CARMEN BRITO 12/15 Released [place] Limitations [place]SR[place]) [place] [id number] DEAN KENNEDY 01/23 [place]ased [place] Limitations [place]) [place] [id number] ER PT/Anxi ety with chest discomf ort LILLIE JOLLEY 01/23 [place]ased w/[place] Limitations [place] ) OUTPATIENT [id number] pt here to see sol WOODS s visit. GAVIN MARVIN 01/23 Released w/o Limitations [place] [place] OUTPATIENT [id number] Rx refill. NASIOTIS, GAVIN 02/23 Released w/o Limitations [place] [place] ) OUTPATIENT [id number] Rx refill. NASIOTIS, GAVIN 04/05 Released w/o Limitations [place] [place]) [place] [id number] RAO QUIÑONEZ 04/06 [place]ick at Home/Quarter s [place] ) OUTPATIENT [id number] BP eval. NASIOTIS, GAVIN 04/13 Released [place]/o Limitations [place] [place] ) OUTPATIENT [id number] f/u BP. NASIOTIS, GAVIN 04/18 [place]ased [place]/o Limitations [place] ) OUTPATIENT [id number] Blood Pressur e Check BULLLINA ZHOU JULY 10 Released w/o Limitations [place] [place] OUTPATIENT [id number] c/o sinus infecti on. NASIOTIS, GAVIN 04/21 [place]ased w/o Limitations [place] [place] Physical Exam Clinic) [place] [id number] [place] HIV/PHA NAZIA DIANE 04/26 [place]ased w/o Limitations [place] Physica [place] Exam Clinic) [place] ) OUTPATIENT [id number] Rx refill. MYRIAM YU 06/28 Released w/o Limitations [place] [place] OUTPATIENT [id number] f/u MYRIAM YU 06/29 [place]ased [place]/o Limitations [place] [place] OUTPATIENT [id number] f/u previou s visit. MYRIAM YU 07/04 Released [place]/o Limitations [place] OUTPATIENT [id number] c/o reactio n to Rx, 1x BP check. MYRIAM YU 08/02 Released [place]/o Limitations [place] [id number] ESTER GAUTHIER 08/04 Released w/[place] Limitations [place] [id number] SERA BONILLA 09/25 Released with Work/Duty Limitations [place] OUTPATIENT [id number] Rx refill. WHITNEY RUANO 09/28 [place]ased [place]/o Limitations [place] OUTPATIENT [id number] follow- up MYRIAM YU 10/27 [place]ased w/o Limitations [place] [place] [employer] OUTPATIENT [id number] NADEGE Juárez 10/31 [place] Limitations 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 [employer] OUTPATIENT [id number] c/o sinus infecti on. MYRIAM YU 10/31 [place]ased [place]/o Limitations [place] Outpatient Encounter [id number] 3 09/03 [facility] Procedures Combined list of: 1) Procedures from Department of [facility] Affairs facilities going back up to thelast 18 months, not all OR non-surgical procedures are included; 2) All procedures from the Department of Defense facilities. Procedure Procedure Type Code Date Perfomer Comments Sour e ELECTROCARDIOGRAM, ROUTINE ECG WITH AT LEAST 12 LEADS; WITH INTERPRETATION AND REPORT [facility] FITTING OF SPECTACLES, EXCEPT FOR APHAKIA; MONOFOCAL [facility] IMMUNIZATION ADMINISTRATION BY INTRANASAL OR ORAL ROUTE; 1 VACCINE (SINGLE OR COMBINATION VACCINE/TOXOID) [facility] EAR MOLD/INSERT, NOT DISPOSABLE, ANY TYPE [facility] TETANUS AND DIPHTHERIA TOXOIDS (TD) ADSORBED WHEN ADMINISTERED TO INDIVIDUALS 7 YEARS OR OLDER, FOR INTRAMUSCULAR USE [facility] EDUCATIONAL SUPPLIES, SUCH BOOKS, TAPES, AND PAMPHLETS, FOR THE PATIENT'S EDUCATION AT COST TO PHYSICIAN OR OTHER QUALIFIED HEALTH FAST FOOD SHIFT LEAD [facility] ELECTROCARDIOGRAM, ROUTINE ECG WITH AT LEAST 12 LEADS; WITH INTERPRETATION AND REPORT [facility] COLLECTION OF VENOUS BLOOD BY VENIPUNCTURE [facility] BLOOD PRESSURE MEASURED (CKD)(DM) [facility] CARDIOVASCULAR STRESS TEST USING MAXIMAL OR SUBMAXIMAL TREADMILL OR BICYCLE EXERCISE,CONTINUOUS ELECTROCARDIOGRAPHIC MONITORING,AND/OR PHARMACOLOGICAL STRESS;W SUPERVISION,INTERPRETAT ION AND REPORT [facility] INDIVIDUAL PSYCHOTHERAPY, INSIGHT ORIENTED, BEHAVIOR MODIFYING AND/OR SUPPORTIVE, IN AN OFFICE OR OUTPATIENT FACILITY, APPROXIMATELY 20 TO 30 MINUTES [id number] WITH THE PATIENT [facility] INTRODUCTION OF NEEDLE OR INTRACATHETER, VEIN [facility] INFLUENZA VIRUS VACCINE, TRIVALENT, LIVE (LAIV3), FOR INTRANASAL USE [facility] SKIN TEST; TUBERCULOSIS, INTRADERMAL [facility] AUDIOMETRIC TESTING OF GROUPS [facility] TYPHOID VACCINE, ACETONE-KILLED, DRIED (AKD), FOR SUBCUTANEOUS USE (U.S. ) [facility] SCREENING TEST OF VISUAL ACUITY, QUANTITATIVE, BILATERAL [facility] Venipuncture Venipuncture 62586 NAZIA DIANE [facility] Pulse Oximetry Pulse Oximetry 88393 LILLIE JOLLEY [facility] Cardiovascular Stre Test Cardiovascular Stress Test 03336 LILLIE JOLLEY [facility] Clinical Social Work Individual Outpatient Counseling 30 Minutes Clinical Social Work Individual Outpatient Counseling 30 Minutes [id number] JESSA PULIDO Individual counseling with . Supportive counseling and coping skills were reinforced. Total time 20 minutes [facility] Audiometry Group Testing Audiometry Group Testing 01456 RYAN WEBSTER [facility] Screening Test Of Visual Acuity, Quantitative, Bilateral Screening Test Of Visual Acuity, Quantitative, Bilateral 52168 LAILA MAK Determination Of Refractive State Determination Of Refractive State 82781 LAILA MAK [facility] Spectacles Services Fitting Monofocal Except For Aphakia Spectacles Services Fitting Monofocal Except For Aphakia 26442 LAILA MAK [facility] Threshold Audiogram (Pure Tone) Threshold Audiogram (Pure Tone) 13322 SHALINI ISBELL [facility] Ear mold/insert, not disposable, any type SHALINI ISBELL [facility] Immunization Administration By Injection, One Vaccine Immunization Administration By Injection, One Vaccine 11927 TATIANA LUX [facility] Td Vaccine Td Vaccine 43311 TATIANA LUX [facility] Social History Combined list of available smoking, tobacco, and other social history from Department of Defense and Veterans Affairs facilities. Social History Type Response Date Comment Sour e This section is an empty social history section. [facility]
--- OUTSIDE RECORDS SUMMARY | 2024-04-08 16:06 | XMS_ITS | Referral Summary ---
Author Organization [facility] Address [address] [place] [address] Care Team Providers Care Ingot Car Operator Name Role Phone Unavailable Primary Care Provider Unavailabl e Source Comments [facility],non-owned Affiliates and Associated Physician Practices is amultiple site organization consisting of ambulatory clinics and hospital sitesin [place], [place], [place] and [place]. This disclosure is being madepursuant to the Care Everywhere program and may not contain all information available regarding this patient. Last updated 17.[facility] Social History Tobacco Use Types Packs/Day Years Used Date Smoking Tobacco: Never Assessed Sex and Gender Information Value Date Recorded Sex Assigned at Not on file Gender Identity Not on file Sexual Orientation Not on file Plan of Treatment Not on file
--- OUTSIDE RECORDS SUMMARY | 2024-04-08 16:06 | XMS_ITS | Clinical Summary ---
Author Organization [facility] Address [address] [place] [address] Phone Care Team Providers Care Train Braker Name Role Phone Chirag Munroe MD Primary Care Provider [phone] Allergies No known active allergies Medications aspirin [...] patient's age to complete this topic Insurance [facility] Pllop.it/TRUE [employer] PPO Advance Directives For more information, please contact: [phone] * Full Code (Latest Code Status on File) Date Activated Date Inactivated Comments 07/10/2021 5:47 PM 07/11/2021 7:30 PM * Full Code Date Activated Date Inactivated Comments 05/21/2016 8:49 PM 05/22/2016 6:29 PM Care Teams Train Braker Relationship Specialty Start Date End Date Chirag Munroe MD [address] [place] [id number] PCP - General Family Practice 05/21/16
--- OUTSIDE RECORDS SUMMARY | 2024-04-08 16:06 | XMS_ITS | Continuity of Care Document ---
Author Organization [facility] Address [address] [place] [address] Phone Care Team Providers Care Tool Design Engineer Name Role Phone Soo Goodman Unavailable Unavailable Advance Directives Directive Yes / No Effective Date File Name No Information Encounters Encounter Description Practice Location Reason(s) For Visit Diagnoses Date Provider Providers Copied on Encounter [facility], [address], [place], [place], [id number], [place] tel:[phone] [facility] No Information Sep-0 2-200 3 Maxine Vann. [address] , [address], [place], [address], [place]. tel:[phone] Family History Family Member Type Diagnosis Age At Onset No Information Payers Payer name Insurance type Covered green party ID Authoriza tion(s) [facility] Commercial CI [id number] Social History Type Description Quantity Date Captured [...]
--- OUTSIDE RECORDS SUMMARY | 2024-04-08 16:06 | XMS_ITS | Clinical Summary ---
Author Organization [facility] Address [address], [facility] [address] [place] [address] Phone Care Team Providers Care Gas Scrubber Operator Name Role Phone Brian Boyd MD Primary Care Provider Allergies No known active allergies Medications aspirin EC 81 MG Tablet Delayed Response Take 81 mg by mouth daily. 3 05/07/2017 Active acetaminophen (TYLENOL) 500 MG Tablet Take 1,000 mg by mouth Daily as needed. Active Multiple Vitamin (MULTI-VITAMIN PO) Take 1 Tab by mouth daily. Active [place]-3 Fatty Acids (OMEGA 3 PO) Take 1 [...] Comments Blood Pressure 126/91 03/17/2018 9:18 AM LAPPING MACHINE TENDER Pulse 62 03/17/2018 9:18 AM LAPPING MACHINE TENDER Temperature 36 ??C (96.8 ??F) 03/17/2018 9:18 AM LAPPING MACHINE TENDER Respiratory Rate 14 03/17/2018 9:18 AM LAPPING MACHINE TENDER Oxygen Saturation 100% 03/17/2018 9:18 AM LAPPING MACHINE TENDER Inhaled Oxygen Concentration - - Weight 106.6 kg (235 lb) 03/17/2018 6:25 AM LAPPING MACHINE TENDER Height 188 cm (6' 2 ) 03/17/2018 6:25 AM LAPPING MACHINE TENDER Body Mass Index 30.17 03/17/2018 6:25 AM LAPPING MACHINE TENDER Plan of Treatment Health Maintenance Due Date [...] this topic Medical Devices Implanted Type Area A P Manager Device Identifier Shelf Expiration Date Model / Serial / Lot Clip 360 Resolution 235cm - [id number] Implanted:Qty: 1 on 03/17/2018 by Donovan Silver, at [facility] IMPLANT [employer] 04/21/2020 [id number] / [id number] / [id number] Clip 360 Resolution 235cm - [id number] Implanted:Qty: 1 on 03/17/2018 by Donovan Silver, at [facility] IMPLANT [employer] 10/15/2020 [id number] / [id number] / [id number] Insurance [facility] Care Teams Gas Scrubber Operator Relationship Specialty Start Date End Date Brian Boyd MD PCP - General Family Medicine 05/01/17
--- OUTSIDE RECORDS SUMMARY | 2024-04-08 16:06 | XMS_ITS | Encounter Summary ---
Author Organization [facility] Address [address] [place] [address] Care Team Providers Care Miner Helper Name Role Phone Unavailable Primary Care Provider Unavailabl e Encounter Details Date Type Department Care Team (Late st Contact Info) Description 08/28/2021 Lab Requisition [facility] [address] [place] [address] Kingsley Rabago MD [address] [place] [address] Social History Tobacco Use Types [...] CDT) Case Report Dermatopathology Report ? Case: [id number] ? Authorizing Provider: ??Kingsley Rabago MD ?Collected: [...] Clinical History Infection vs other. Path # [id number]. 2 5:08 PM T DERMATOPATHOLOGY LABORATORY Gross Description Specimen A: Received is one formalin filled container labeled with the patient's name and designated right FA. The specimen consists of a shave biopsy measuring [id number]. Jar 0. 2 5:08 PM T DERMATOPATHOLOGY [...] characteristic determined by the Dermatopathology Laboratory at [facility], directed by Dr. Sean Jay. These tests need not be, and therefore are not, approved by the [place] Food and Drug Administration. The tests are used for clinical purposes. Billing Codes Specimen Charges Stain Charges 07091 1 74419 [id number] 1 1 2 5:08 PM CDT DERMATOPATHOLOGY LABORATORY Embedded Images 2 5:08 PM CDT DERMATOPATHOLOGY LABORATORY Pathology/Cytolog y TISSUE SPECIMEN FROM SKIN / Unknown 08/28/2021 08/28/2021 3:44 PM CDT Kingsley Rabago MD LAB - PATHOLOGY/CYTO LOGY ORDERABLES DERMATOPATHOLOGY LABORATORY [facility] - Department of Dermatology [address], [address] [phone] documented in this encounter Visit Diagnoses Not on filedocumented in this encounter
--- OUTSIDE RECORDS SUMMARY | 2024-04-08 16:06 | XMS_ITS | Patient Health Summary ---
Author Organization [facility] Address [address] [place] [address] Care Team Providers Care Rolloff Truck Driver Name Role Phone Unavailable Primary Care Provider Unavailabl e Note from [facility],non-owned Affiliates and Associated Physician Practices is amultiple site organization consisting of ambulatory clinics and hospital sitesin [place], [place], [place] and [place]. This disclosure is being madepursuant to the Care Everywhere program and may not contain all information available regarding this patient. Last updated 17.[facility] Social History Tobacco Use Types Packs/Day Years Used Date Smoking Tobacco: Never Assessed Sex and Gender Information Value Date Recorded Sex Assigned at Not on file Gender Identity Not on file Sexual Orientation Not on file Procedures * DERMATOPATHOLOGY(Performed 08/28/2021) Results * DERMATOPATHOLOGY (08/28/2021 12:00 AM CDT) Case Report Dermatopathology Report ? Case: [id number] ? Authorizing Provider: ??Kingsley Rabago MD ?Collected: ? 08/28/2021 12:00 AM ? Ordering Location: ? [facility] Care Derm[facility] Lab ?Received: ?08/28/2021 03:44 PM [...] Clinical History Infection vs other. Path # [id number]. 2 5:08 PM T DERMATOPATHOLOGY LABORATORY Gross Description Specimen A: Received is one formalin filled container labeled with the patient's name and designated right FA. The specimen consists of a shave biopsy measuring [id number]. Jar 0. 2 5:08 PM CDT DERMATOPATHOLOGY [...] characteristic determined by the Dermatopathology Laboratory at [facility], directed by Dr. Sean Jay. These tests need not be, and therefore are not, approved by the [place] Food and Drug Administration. The tests are used for clinical purposes. Billing Codes Specimen Charges Stain Charges 52907 1 [id number] [id number] 1 1 2 5:08 PM CDT DERMATOPATHOLOGY LABORATORY Embedded Images 2 5:08 PM CDT DERMATOPATHOLOGY LABORATORY Pathology/Cytolog y TISSUE SPECIMEN FROM SKIN / Unknown 08/28/2021 08/28/2021 3:44 PM CDT Kingsley Rabago MD LAB - PATHOLOGY/CYTO LOGY ORDERABLES DERMATOPATHOLOGY LABORATORY [facility] - Department of Dermatology [facility] Medicine [address] [place] [address], [address] [phone]
--- OUTSIDE RECORDS SUMMARY | 2024-04-08 16:06 | XMS_ITS | Clinical Summary ---
Author Organization [facility] Address [address] [place] [address] Care Team Providers Care Vice President Marketing & Development Name Role Phone Unavailable Primary Care Provider Unavailabl e Source Comments [facility] [employer],non-owned Affiliates and Associated Physician Practices is amultiple site organization consisting of ambulatory clinics and hospital sitesin [place], [place], [place] and [place]. This disclosure is being madepursuant to the Care Everywhere program and may not contain all information available regarding this patient. Last updated 17.[facility] [employer] Social History Tobacco Use Types Packs/Day Years [...]
[2024-04-08 16:08] LABS: Alanine Aminotransferase 23 U/L (6-50); Albumin Level 4.3 g/dL (3.5-5.1); Alkaline Phosphatase 75 U/L (38-126); Anion Gap 10 mmol/L (4-12); Aspartate Amino Transferase 24 U/L (17-59); Blood Urea Nitrogen 12 mg/dL (9-20); Calcium 9.8 mg/dL (8.4-10.2); Carbon Dioxide 25 mmol/L (22-30); Chloride 104 mmol/L (98-107); Estimated CRCL calculation 118 ml/min; Estimated Glomerular Filt Rate > 60; Glucose 124 mg/dL (65-110); Lipase 48 U/L (23-300); NT Pro B Type Natriuretic Pept 42 pg/mL (19.9-100); Potassium 4.2 mmol/L (3.4-5.0); Sodium 139 mmol/L (137-145); Troponin I < 0.012 ng/mL (0.000-0.034)
[2024-04-08 16:22] VITALS: BP 138/86; PULSE 80; RESP 18; O2SAT 99
[2024-04-08 16:53] LABS: Add Urine Microscopic? NO; Appearance Urine Clear (Clear); Bilirubin Urine Negative (Negative); Blood Urine Negative (Negative); Color Urine Yellow (Yellow); Glucose Urine UA Negative (Negative); Ketones Urine Trace mg/dL (Negative); Leukocyte Esterase Ur Negative LEU/UL (Negative); Nitrate Urine Negative (Negative); Protein Urine Negative (Negative); Specific Grav Ur 1.014 (1.001-1.035); Urobilinogen Urine 0.2 mg/dL (<2.0); pH Urine 7.5 (5.0-9.0)
--- NOTE | 2024-04-08 17:07 | ED.GENADULT ---
HPI - General Adult General Chief complaint: Recheck/Abnormal Lab/Rx Stated complaint: htn Time Seen by Provider: 04/08/24 16:42 History of Present Illness HPI narrative: This is a 58-year-old male history of chronic pain presenting for elevated blood pressures. He was at the pain clinic this morning getting injections when they noticed his blood pressure was 180/100. He got his injections and then went home and recheck his blood pressure was 140/90. He took a Tylenol tried to relax and then came to the ED. He is complaining of a mild headache which she has had past. No chest pain difficulty breathing neurologic symptoms. Related Data Home Medications ?Medication ?Instructions ?Recorded ?Confirmed ?Last Taken ?Type doxycycline hyclate 100 mg tablet 100 mg PO DAILY PRN scalp 04/02/24 04/08/24 Unknown History cellulitis gabapentin 100 mg capsule 200 mg PO QHS 04/02/24 04/08/24 04/07/24 History Allergies Allergy/AdvReac Type Severity Reaction Status Date / Time atorvastatin Allergy Unknown Joint Pain Verified 04/08/24 16:24 [facility] Past Medical History Medical History COVID-19 (~12/2020) Chronic neck pain SYL (obstructive sleep apnea) Cellulitis of head or scalp LBBB (left bundle branch block) Pulmonary nodules Hx of malignant neoplasm of colon Hyperlipidemia Chronic low back pain with right-sided sciatica Surgical History Surgical History No pertinent past surgical history Family History Family History Grandparent Diabetes mellitus Other Diabetes mellitus Social History Social History Years smoked: 2 Smoking status: Former smoker Tobacco type: cigarettes Second hand tobacco smoke exposure: No Smoking end date: 03/11/03 Alcohol intake: never Substance use: never Substance use type: does not use Lack of Transportation: No Lack of Food: Never True Current Housing: I Have Housing Concerned About Future Housing: No Difficulty Paying Gas/Electric Bills: No Difficulty Paying for Meds: No Currently Unemployed: No Education: High School Diploma/GED Difficulty w/ Childcare or Family Care: No Living arrangements: with family Gender identity (if verbalized by the patient): Male Spiritual care concerns: No Exam Narrative: APPEARANCE: No apparent distress. Head: atraumatic. EYES: EOMI, NOSE: Atraumatic NECK: Trachea midline RESPIRATORY: No increased rate of breathing clear to auscultation CARDIOVASCULAR: RRR, ABDOMINAL: Non-distended MUSCULOSKELETAl: No obvious deformities NEURO: Alert. Cranial nerves 2-12 grossly intact. Sensation light touch, motor function cerebellar function intact for 4 extremities. Gait exam was normal. SKIN:: Warm, dry. Normal color PSYCHIATRIC: Normal affect Course Vital Signs Vital signs: Vital Signs Temperature 97.9 F 04/08/24 11:35 Pulse Rate 84 04/08/24 11:35 Respiratory Rate 16 04/08/24 11:35 Blood Pressure 154/77 H 04/08/24 11:35 Pulse Oximetry 100 04/08/24 11:35 Temperature 97.9 F 04/08/24 11:35 Pulse Rate 80 04/08/24 16:22 Respiratory Rate 18 04/08/24 16:22 Blood Pressure 138/86 04/08/24 16:22 Pulse Oximetry 99 04/08/24 16:22 Medical Decision Making MDM Narrative Medical decision making narrative: -Course: 58-year-old male presenting with elevated blood pressure readings. No significant findings on history or physical. Blood pressure readings urine normal. Laboratory studies within normal limits. Patient educated on when to report emergency department for hypertension. Discharged with primary care follow-up. Given return precautions Vital Signs Vital Signs: Vital Signs Temperature 97.9 F 04/08/24 11:35 Pulse Rate 84 04/08/24 11:35 Respiratory Rate 16 04/08/24 11:35 Blood Pressure 154/77 H 04/08/24 11:35 Pulse Oximetry 100 04/08/24 11:35 Temperature 97.9 F 04/08/24 11:35 Pulse Rate 80 04/08/24 16:22 Respiratory Rate 18 04/08/24 16:22 Blood Pressure 138/86 04/08/24 16:22 Pulse Oximetry 99 04/08/24 16:22 Lab Data 04/08/24 15:22 04/08/24 15:22 Labs: Lab Results 04/08/24 04/08/24 Range/Units 15:22 16:36 WBC 9.5 (4.5-10.0) K/mm3 RBC 5.31 (4.6-6.20) M/mm3 Hgb 16.6 (14.0-18.0) g/dL Hct 48.6 (42.0-52.0) % MCV 91.5 (80-100) fl MCH 31.3 (26-34) pg MCHC 34.2 (32-36) g/dl RDW 12.1 (11.5-14.5) % Plt Count 242 (150-375) k/mm3 MPV 9.2 (7.4-10.4) fl Immature Gran % (Auto) 0.2 (0-0.5) % Neut % (Auto) 92.8 H (45.5-73.1) % Lymph % (Auto) 6.2 L (18.3-44.2) % [place] % (Auto) 0.6 L (2.6-8.5) % Eos % (Auto) 0.0 (0-4.4) % Baso % (Auto) 0.2 (0.2-1.2) % Lymph # (Auto) 0.59 L (0.9-3.2) K/mm3 [place] # (Auto) 0.1 (0.1-0.6) K/mm3 Eos # (Auto) 0.0 (0-0.3) K/mm3 Baso # (Auto) 0.0 (0.0-0.1) K/mm3 Abs Immat Gran (auto) 0.02 (0.00-0.031) K/mm3 Absolute Neuts (auto) 8.8 H (1.3-6.7) K/mm3 Absolute Nucleated RBC 0.000 (0.0-0.012) K/mm3 Nucleated RBC % 0.0 (0.0-0.2) % PT 12.9 (11.1-14.7) Seconds INR 0.9 APTT 28.5 (22.3-36.8) Seconds Sodium 139 (137-145) mmol/L Potassium 4.2 (3.4-5.0) mmol/L Chloride 104 (98-107) mmol/L Carbon Dioxide 25 (22-30) mmol/L Anion Gap 10 (4-12) mmol/L BUN 12 (9-20) mg/dL Creatinine 0.75 (0.7-1.3) mg/dL Estim Creat Clear Calc 118 ml/min Estimated GFR > 60 (59 - ) Glucose 124 H (65-110) mg/dL Calcium 9.8 (8.4-10.2) mg/dL Total Bilirubin 1.0 (0.2-1.3) mg/dL AST 24 (17-59) U/L ALT 23 (6-50) U/L Alkaline Phosphatase 75 (38-126) U/L Troponin I < 0.012 (0.000-0.034) ng/mL NT-Pro-B Natriuret Pep 42 (19.9-100) pg/mL Total Protein 8.0 (6.3-8.2) g/dL Albumin 4.3 (3.5-5.1) g/dL Lipase 48 (23-300) U/L Urine Color Yellow (Yellow) Urine Appearance Clear (Clear) Urine pH 7.5 (5.0-9.0) Ur Specific [place] 1.014 (1.001-1.035) Urine Protein Negative (Negative) mg/dL Urine Glucose (UA) Negative (Negative) mg/dL Urine Ketones Trace H (Negative) mg/dL Ur Blood (Man) Negative (Negative) Urine Nitrate Negative (Negative) Urine Bilirubin Negative (Negative) Urine Urobilinogen 0.2 (<2.0) mg/dL Leukocyte Esterase Rfl Negative (Negative) LUDWIG/UL Discharge Plan Discharge Clinical Impression: Hypertension Patient Disposition: Home, Self-Care Condition: Stable Instructions: Antibiotic Form, Hypertension (ED) Additional Instructions: Please follow-up with her primary care physician for management of your blood pressure. Return to the ED if you develop slurred speech, extremity weakness, chest pain difficulty breathing. Patient Language: Bulgarian Prescriptions: No Action doxycycline hyclate 100 mg tablet 100 mg PO DAILY PRN (Reason: scalp cellulitis) gabapentin 100 mg capsule 200 mg PO QHS Follow-up/Referrals: Lindsey Boyd MD [Primary Care Provider] -
[2024-04-08 17:20] VITALS: BP 142/98; PULSE 80; RESP 16; O2SAT 97
== END 2024-04-08 17:21 | disposition home or self-care (01) ==
PROVIDERS: Physician Assistant; Emergency Provider Emergency Medicine; PCP Family Medicine
DX: I10 Essential (primary) hypertension (principal); E78.5 Hyperlipidemia, unspecified; G47.33 Obstructive sleep apnea (adult) (pediatric); Z85.038 Personal history of other malignant neoplasm of large intestine; Z86.16 Personal history of COVID-19; Z87.891 Personal history of nicotine dependence; I44.7 Left bundle-branch block, unspecified
CPT/HCPCS: 36415; 70450; 71046; 80053; 81003; 83690; 83880; 84484; 85025; 85610; 85730; 93005; 99284

== ENCOUNTER 2025-01-04 01:15 | Day surgery (SDC) | payer OTHER, SELFPAY ==
[2024-12-22 14:25] VITALS: BMI 32.3
[2025-01-04 06:27] VITALS: BP 150/95; PULSE 93; RESP 18; TEMP 36.3; O2SAT 98
[2025-01-04] MEDS: LACTATED RINGERS 1,000 ML 150 ML IV CONT (06:33)
--- NOTE | 2025-01-04 07:23 | WPDANESEPPF ---
Anes - Initial Pre Proc Eval Procedure: Operation Date: 01/04/25 07:30 Proposed Procedures p Screening Colonoscopy - Chester Fierro MD Date/Time: 01/04/25 07:23 Surgeon: Chester Fierro MD Pre Op Diagnosis: Personal history of colon polyps, unspecified Patient Data Age: 59 Gender: M Height: 1.83 m Weight: 114.5 kg Last Vital Signs Temp 36.3 C L 01/04/25 06:27 Pulse 93 01/04/25 06:27 Resp 18 01/04/25 06:27 BP 150/95 H 01/04/25 06:27 Pulse Ox 98 01/04/25 06:27 O2 Del Method Room Air 01/04/25 06:27 Allergies Allergy/AdvReac Type Severity Reaction Status Date / Time No Known Allergies Allergy Verified 01/04/25 06:21 Home Medications ?Medication ?Instructions ?Recorded ?Confirmed ?Type doxycycline hyclate 100 mg tablet 100 mg PO DAILY PRN scalp 04/02/24 12/22/24 History cellulitis gabapentin 100 mg capsule 200 mg PO QHS PRN nerve pain 12/22/24 12/22/24 History Patient hx anesthesia problems: none Family hx anesthesia problems: none Results Review: All pre-operative results and documents have been reviewed as part of the pre-operative evaluation. [facility] Past Medical History Medical History COVID-19 (~12/2020) Chronic neck pain SYL (obstructive sleep apnea) Cellulitis of head or scalp LBBB (left bundle branch block) Pulmonary nodules Hx of malignant neoplasm of colon Hyperlipidemia Chronic low back pain with right-sided sciatica Surgical History Surgical History No pertinent past surgical history Family History Family History Grandparent Diabetes mellitus Other Diabetes mellitus Social History Social History Years smoked: 2 Smoking status: Former smoker Tobacco type: smokeless tobacco Second hand tobacco smoke exposure: No Smoking end date: 03/11/03 Alcohol intake: current Drinks per week: 2 Substance use: never Substance use type: does not use Lack of Transportation: No Lack of Food: Never True Current Housing: I Have Housing Concerned About Future Housing: No Difficulty Paying Gas/Electric Bills: No Difficulty Paying for Meds: No Currently Unemployed: No Education: High School Diploma/GED Difficulty w/ Childcare or Family Care: No Living arrangements: with family Gender identity (if verbalized by the patient): Male Spiritual care concerns: No Anes - Eval Final PreProcedure Day of Procedure 01/04/25 07:23 Patient weight: obese Heart: regular rate and rhythm Lungs: clear to auscultation Airway: Mallampati scale class II Neurological: alert and oriented Last oral intake: >/= 8 hours ASA classification: III Emergent: no Anesthetic plan: proceed Anesthesia type and monitoring: general GIVS and standard monitoring Results Review: All pre-operative results and documents have been reviewed as part of the pre-operative evaluation. Informed Consent: The patient's anesthetic plan and its attendant risks and benefits were discussed with the patient/family/POA. Questions were solicited and answers provided to the satisfaction of the patient/family/POA.
[2025-01-04] MEDS: SIMETHICONE ORAL SUSPENSION 20 MG/0.3 ML 30 ML BOTTLE 0.6 ML IRRIGATION (07:47)
--- NOTE | 2025-01-04 07:57 | PM.IMHP ---
H&P: HPI History of Present Illness Date/Time: 01/04/25 07:57 Chief Complaint: History of colon polyps Narrative: The patient has a history of colonic polyps, the last colonoscopy was three years ago. The patient had a malignant polyp resected from the sigmoid. Subsequent colonoscopy did not show any residual tissue. Review of Systems Review of Systems: All systems reviewed & are unremarkable except as noted in HPI and below PMFSH Past Medical History Medical History COVID-19 (~12/2020) Chronic neck pain SYL (obstructive sleep apnea) Cellulitis of head or scalp LBBB (left bundle branch block) Pulmonary nodules Hx of malignant neoplasm of colon Hyperlipidemia Chronic low back pain with right-sided sciatica Surgical History Surgical History No pertinent past surgical history Family History Family History Grandparent Diabetes mellitus Other Diabetes mellitus Social History Social History Years smoked: 2 Smoking status: Former smoker Tobacco type: smokeless tobacco Second hand tobacco smoke exposure: No Smoking end date: 03/11/03 Alcohol intake: current Drinks per week: 2 Substance use: never Substance use type: does not use Lack of Transportation: No Lack of Food: Never True Current Housing: I Have Housing Concerned About Future Housing: No Difficulty Paying Gas/Electric Bills: No Difficulty Paying for Meds: No Currently Unemployed: No Education: High School Diploma/GED Difficulty w/ Childcare or Family Care: No Living arrangements: with family Gender identity (if verbalized by the patient): Male Spiritual care concerns: No Meds Home Medications and Allergies Home Medications ?Medication ?Instructions ?Recorded ?Confirmed ?Type doxycycline hyclate 100 mg tablet 100 mg PO DAILY PRN scalp 04/02/24 12/22/24 History cellulitis gabapentin 100 mg capsule 200 mg PO QHS PRN nerve pain 12/22/24 12/22/24 History Allergies Allergy/AdvReac Type Severity Reaction Status Date / Time No Known Allergies Allergy Verified 01/04/25 06:21 Vital Signs Vital Signs - 24 hr 01/04/25 06:27 Temperature 97.3 F L Pulse Rate 93 Respiratory Rate 18 Blood Pressure 150/95 H Pulse Oximetry 98 Oxygen Delivery Room Air Exam Const: General: cooperative and healthy appearing Resp: Effort & Inspection: normal respiratory effort and able to speak in complete sentences Auscultation: clear to auscultation bilaterally Cardio: Rate: regular rate Rhythm: regular rhythm GI: Inspection: normal to inspection GI Palp: No No hepatosplenomegaly present Auscultation: normal bowel sounds Rectal Exam: deferred Skin: General skin exam: normal color Psych: Appearance: grossly normal Mental Status: mental status grossly normal Assessment and Plan Assessment and plan (1) Hx of malignant neoplasm of colon: Code(s): Z85.038 - Personal history of other malignant neoplasm of large intestine Status: Chronic Assessment and Plan: The patient is deemed a good candidate for the procedure. Consent signed. Will proceed.
[2025-01-04 07:59] VITALS: BP 115/74; PULSE 71; RESP 17; O2SAT 98
[2025-01-04 08:09] VITALS: BP 107/57; PULSE 74; RESP 23; O2SAT 99
[2025-01-04 08:19] VITALS: BP 127/87; PULSE 64; RESP 19; O2SAT 97
== END 2025-01-04 08:28 | disposition home or self-care (01) ==
PROVIDERS: PCP Family Medicine; Referring Provider Internal Medicine Gastroenterology; Visit Provider Internal Medicine Gastroenterology
PROC: 0DJD8ZZ Inspection of Lower Intestinal Tract, Via Natural or Artificial Opening Endoscopic (ICD-10-PCS; CPT 45378; principal; 2025-01-04 07:30)
DX: Z12.11 Encounter for screening for malignant neoplasm of colon (principal); E78.2 Mixed hyperlipidemia; G47.33 Obstructive sleep apnea (adult) (pediatric); I44.7 Left bundle-branch block, unspecified; L03.811 Cellulitis of head [any part, except face]; G89.29 Other chronic pain; M54.2 Cervicalgia; M54.41 Lumbago with sciatica, right side; E66.9 Obesity, unspecified; Z68.34 Body mass index [BMI] 34.0-34.9, adult; Z86.0100 Personal history of colon polyps, unspecified; Z87.891 Personal history of nicotine dependence; Z85.038 Personal history of other malignant neoplasm of large intestine
CPT/HCPCS: 45378; J2704; J7120